=== PATIENT | male | born 1980 ===

== ENCOUNTER 2021-01-19 13:42 | Outpatient (REF) | payer OTHER, SELFPAY ==
--- NOTE | ~2021-01-19 | US_ITS ---
EXAMINATION: US THYROID CLINICAL INFORMATION: Mass, lump left neck going up to patient's jaw. COMPARISON: None TECHNIQUE: Linear transducer grayscale and color Doppler examination with attention to the region of the thyroid. FINDINGS: SIZE: Measurements of the thyroid lobes and nodules are given in sagittal, anteroposterior and transverse dimensions respectively. Right Thyroid Lobe: 5.1 x 1.5 x 1.8 cm, volume 7.2 mL. Parenchyma: The gland echotexture is homogeneous. Thyroid vascularity is increased. Left Thyroid Lobe: 7.7 x 4.8 x 5.6 cm, volume 108.2 mL. Parenchyma: The gland echotexture is heterogeneous. Thyroid vascularity is increased. Isthmus: 0.3 cm in maximum AP dimension. Estimated total number of nodules greater than or equal to 1 cm: 2. Manager Enrollment nodules are described as follows: 1. Location: Right superior. Size: 0.98 x 0.90 x 1.04 cm, volume 0.48 mL. Nodule characteristics: Composition: Solid (2). Echogenicity: Isoechoic (1). Shape: Not taller than wide (0). Margins: Lobulated (2). Echogenic Foci: None (0). ACR TI-RADS total points: 5 ACR TI-RADS category: 4 2. Location: Right superior/mid. Size: 0.91 x 0.96 x 0.81 cm, volume 0.37 mL. Nodule characteristics: Composition: Solid (2). Echogenicity: Isoechoic (1). Shape: Taller than wide (3). Margins: Lobulated (2). Echogenic Foci: None (0). ACR TI-RADS total points: 8 ACR TI-RADS category: 5 3. Location: Left. Size: 7.04 x 5.73 x 5.87 cm, volume 124 mL. Nodule characteristics: Composition: Solid (2). Echogenicity: Cannot be determined (1). Shape: Not taller than wide (0). Margins: Lobulated (2). Echogenic Foci: Punctate echogenic foci (3). ACR TI-RADS total points: 8 ACR TI-RADS category: 5 NODES: No lymphadenopathy is seen in the tissue surrounding the thyroid gland. US/US thyroid IMPRESSION: 1. Bilateral thyroid nodules are seen, as above. The 7.7 cm in maximal diameter left thyroid lobe nodule meets ACR biopsy criteria and is amenable to ultrasound-guided biopsy, if clinically indicated and not already performed. 2. There is an asymmetric goiter. 3. There is heterogeneous thyroid echotexture or increased vascularity, which can be associated with thyroiditis. ACR TI-RADS RECOMMENDATION REFERENCE: Ultrasound-guided fine-needle aspiration, followup ultrasound, no further follow up. * TR1 (0 point) and TR 2 (2 points): No FNA or follow up * TR3 (3 points): FNA if more than or equal to 2.5 cm in maximum dimension, followup ultrasound in 1, 3 and 5 years if 1.5 to 2.4 cm in maximum dimension. * TR4 (4-6 points): FNA if more than or equal to 1.5 cm in maximum dimension, followup ultrasound in 1, 2, 3 and 5 years if 1 to 1.4 cm in maximum dimension. * TR5 (more than or equal to 7 points): FNA if more than or equal to 1 cm in maximum dimension, followup ultrasound every year for 5 years if 0.5 to 0.9 cm in maximum dimension. * TR3, TR4 or TR5 nodules that are below the size threshold for follow up receive no follow up.
== END 2021-01-19 13:43 | disposition home or self-care (01) ==
LOC: HO.HMGCX 13:42
PROVIDERS: Visit Provider Registered Nurse
DX: R06.02 Shortness of breath (principal); R22.1 Localized swelling, mass and lump, neck
CPT/HCPCS: 76536

== ENCOUNTER 2021-04-13 11:10 | Outpatient (REF) | payer OTHER, SELFPAY ==
--- NOTE | ~2021-04-13 | XR_ITS ---
EXAMINATION: XR KNEE, RIGHT CLINICAL INFORMATION: Pain COMPARISON: None TECHNIQUE: Four views of the right knee. FINDINGS: No acute fracture or dislocation. Small tricompartmental marginal osteophytes present. 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 There is prominence of the distal patellar tendon which could represent ongoing patellar tendinosis. No suspicious osseous lesions. No significant joint effusion. XR/XR knee RT 4V IMPRESSION: No acute findings. Small tricompartmental marginal osteophytes. Evidence suggestive of prior Hodgkin Schlatter disease. Query ongoing distal patellar tendinosis.
== END 2021-04-13 11:11 | disposition home or self-care (01) ==
LOC: HO.XRAY 11:10
PROVIDERS: PCP Registered Nurse; Visit Provider Registered Nurse
DX: G89.29 Other chronic pain (principal); M25.561 Pain in right knee
CPT/HCPCS: 73564

== ENCOUNTER 2021-05-19 08:57 | Outpatient (REF) | payer OTHER, SELFPAY ==
--- NOTE | ~2021-05-19 | US_ITS ---
EXAMINATION: ULTRASOUND-GUIDED LEFT THYROID NODULE BIOPSY. CLINICAL INFORMATION: Large left thyroid nodule. COMPARISON: Ultrasound thyroid 01/16/2021. TECHNIQUE: Following explaining ultrasound-guided left thyroid nodule fine needle biopsy procedure, benefits and risk, a written consent was obtained. Patient was placed supine on ultrasound stretcher and preliminary ultrasound imaging was obtained. An optimal site was selected along the left para midline neck and marked on the skin with a marker. The marked site was cleaned and draped in usual sterile manner. 1% lidocaine was injected puncture site. A 25-gauge needle attached to a syringe was advanced into the left mixed heterogeneous large left-sided nodule and a 4 pass fine-needle biopsy aspiration was performed through the cystic and solid components. Postprocedure there is no bleeding. Patient on procedure extremely well. Simple dressing applied postprocedure at the puncture site. FINDINGS: On preliminary ultrasound imaging there is a large cystic and solid mass in the left gland Y almost entire gland. 4 pass fine-needle biopsy aspiration was performed with 25-gauge needle. US/US guided fine needle asp IMPRESSION: Successful ultrasound-guided fine-needle biopsy aspiration of a large left thyroid nodule performed.
[2021-05-19] MEDS: Lidocaine HCl 1 % MPF 5 ML VIAL 4 ML SUBCUT (10:03)
== END 2021-05-19 08:58 | disposition home or self-care (01) ==
LOC: HO.US 08:57
PROVIDERS: PCP Registered Nurse; Visit Provider Nurse Practitioner
DX: E06.9 Thyroiditis, unspecified (principal)
CPT/HCPCS: 10005; 88112; 88172; 88173

== ENCOUNTER 2021-06-17 14:25 | Outpatient (REF) | payer OTHER, SELFPAY ==
[2021-06-17 16:05] LABS: Alanine Aminotransferase 40 U/L (0-40); Albumin Level 4.4 g/dL (3.5-5.0); Alkaline Phosphatase 66 U/L (39-117); Anion Gap 10 (12-20); Aspartate Amino Transferase 18 U/L (5-37); Bilirubin Total 0.6 mg/dL (0.0-1.0); Blood Urea Nitrogen 18 mg/dL (9-16); Calcium 9.7 mg/dL (8.4-10.2); Carbon Dioxide 27 mmol/L (22-29); Chloride 108 mmol/L (96-108); Estimated Glomerular Filt Rate > 60; Glucose Random 125 mg/dL (60-115); Phosphorus 2.5 mg/dL (2.7-4.5); Potassium 4.1 mmol/L (3.3-5.1); Sodium 141 mmol/L (135-145); Total Protein 6.9 g/dL (6.5-8.0)
[2021-06-17 16:26] LABS: Free T4 (Free Thyroxine) 0.96 ng/dL (0.71-1.85); Thyroid Stimulating Hormone 1.38 uIU/mL (0.32-4.0)
[2021-06-18 16:17] LABS: Calcium (PTHI) 9.5 mg/dL (8.6-10.3); PTHI 44 pg/mL (14-64)
== END 2021-06-17 14:26 | disposition home or self-care (01) ==
LOC: HO.LAB 14:25
PROVIDERS: PCP Internal Medicine; Visit Provider Internal Medicine
DX: E04.2 Nontoxic multinodular goiter (principal); E55.9 Vitamin D deficiency, unspecified; D49.7 Neoplasm of unspecified behavior of endocrine glands and other parts of nervous system
CPT/HCPCS: 36415; 80053; 82306; 83970; 84100; 84439; 84443; 99202

== ENCOUNTER 2021-06-29 07:24 | Outpatient (REF) | payer OTHER, SELFPAY ==
--- NOTE | ~2021-06-29 | CT_ITS ---
EXAMINATION: CT SOFT TISSUE NECK WITHOUT CONTRAST CLINICAL INFORMATION: Thyroid cancer. COMPARISON: Previous thyroid ultrasound 01/19/2021. TECHNIQUE: Helical imaging was performed in the axial plane with generation of coronal and sagittal reformatted images. This CT examination was performed using dose optimization techniques as appropriate, variously including the following: *Automated exposure control *Adjustment of mA and/or kV according to patient size (this includes techniques or standardized protocols for targeted exams where dose is matched to indication/reason for exam; i.e. extremities or head) *Use of iterative reconstruction technique DLP: 455 mGy-cm FINDINGS: There is a large, partially cystic/partially solid left thyroid nodule. This measures 5.2 x 5.6 x 7.2 cm in transverse, AP and longitudinal dimensions. This occupies the entire left lobe. This displaces the trachea to the right. This extends inferiorly to the level of the top of the manubrium/sternomanubrial joints. There are small right thyroid nodules, largest measuring 8 x 10 mm in AP and transverse dimensions. There is diffuse shotty cervical lymphadenopathy seen bilaterally. Largest lymph nodes are upper normal in size in the bilateral jugulodigastric region measuring 1 cm in short axis No enlarged lymph nodes are seen. The visualized intracranial structures are normal. The visualized orbits are normal. The visualized paranasal sinuses, mastoid air cells and middle ears are clear. The salivary glands are normal. There is prominent soft tissue seen in the oropharynx probably representing prominent adenoidal soft tissue. No asymmetry to suggest a focal mass is seen. There is asymmetric appearance of the piriform sinuses with the left significantly larger than the right. Possible left vocal cord paralysis cannot be excluded and clinical correlation is recommended. There is no mediastinal lymphadenopathy. The visualized lung apices are clear. Vascular structures are not well assessed without contrast. There is curvature of the cervical spine to the right and degenerative changes. CT/CT soft tissue neck wo con IMPRESSION: Large, partially solid/partially cystic left thyroid nodule. This displaces the trachea to the right. This extends inferior to the manubrium. Small right thyroid nodules. Diffuse cervical lymphadenopathy. Largest lymph nodes are upper normal size. Asymmetric appearance of the piriform sinuses questionable for possible left vocal cord paralysis. Clinical correlation recommended.
== END 2021-06-29 07:25 | disposition home or self-care (01) ==
LOC: HO.CT 07:24
PROVIDERS: PCP Nurse Practitioner; Visit Provider Internal Medicine
DX: D49.7 Neoplasm of unspecified behavior of endocrine glands and other parts of nervous system (principal)
CPT/HCPCS: 70490

== ENCOUNTER → 2021-09-21 08:44 | Outpatient (BNVA) | payer OTHER, SELFPAY | PROVIDERS: PCP Nurse Practitioner; Visit Provider Internal Medicine | DX: Z13.89 Encounter for screening for other disorder (principal) ==

== ENCOUNTER 2021-10-08 09:39 | Outpatient (REF) | payer OTHER, SELFPAY ==
[2021-10-08 11:40] LABS: Alanine Aminotransferase 35 U/L (0-40); Albumin Level 4.5 g/dL (3.5-5.0); Alkaline Phosphatase 72 U/L (39-117); Anion Gap 13 (12-20); Aspartate Amino Transferase 18 U/L (5-37); Bilirubin Total 0.8 mg/dL (0.0-1.0); Blood Urea Nitrogen 13 mg/dL (9-16); Calcium 9.7 mg/dL (8.4-10.2); Carbon Dioxide 24 mmol/L (22-29); Chloride 105 mmol/L (96-108); Estimated Glomerular Filt Rate > 60; Glucose Random 112 mg/dL (60-115); Phosphorus 2.7 mg/dL (2.7-4.5); Potassium 4.3 mmol/L (3.3-5.1); Sodium 138 mmol/L (135-145); Total Protein 6.9 g/dL (6.5-8.0)
[2021-10-08 11:52] LABS: Free T4 (Free Thyroxine) 1.02 ng/dL (0.71-1.85); Vitamin D 25-OH Total 30.1 ng/mL (>30)
[2021-10-09 15:46] LABS: Calcium (PTHI) 9.5 mg/dL (8.6-10.3); PTHI 53 pg/mL (16-77)
== END 2021-10-08 09:40 | disposition home or self-care (01) ==
LOC: HO.LAB 09:39
PROVIDERS: PCP Nurse Practitioner; Visit Provider Internal Medicine
DX: E04.2 Nontoxic multinodular goiter (principal); E55.9 Vitamin D deficiency, unspecified
CPT/HCPCS: 36415; 80053; 82306; 83970; 84100; 84439; 84443

== ENCOUNTER 2021-10-28 14:16 | Outpatient (REF) | payer OTHER, SELFPAY ==
--- NOTE | ~2021-10-28 | US_ITS ---
EXAMINATION: US RETROPERITONEAL COMPLETE (RENAL) CLINICAL INFORMATION: Bladder/pelvic pain x1 month. History of stones. Question nephrolithiasis. COMPARISON: CT abdomen and pelvis 05/19/2013. TECHNIQUE: Real-time imaging of the kidneys and bladder. FINDINGS: RIGHT KIDNEY: 11.5 x 4.3 x 6.1 cm (SAG x AP x TRV). The kidney is normal in size, contour, and echogenicity. Renal cortical thickness is normal. No calculi or focal parenchymal lesions. No hydronephrosis. LEFT KIDNEY: 11.3 x 5.7 x 5.7 cm (SAG x AP x TRV). The kidney is normal in size, contour, and echogenicity. Renal cortical thickness is normal. No calculi or focal parenchymal lesions. No hydronephrosis. BLADDER: Well distended and normal. Bilateral ureteral jets are demonstrated. Prevoid bladder volume is 262 mL. There is no postvoid residual. ADDITIONAL FINDINGS: The prostate gland measures 4.3 x 3.8 by or centimeters for a volume of 34 mL. US/US retroperitoneal comp IMPRESSION: No nephrolithiasis or hydronephrosis.
== END 2021-10-28 14:17 | disposition home or self-care (01) ==
LOC: HO.HMGCX 14:16
PROVIDERS: Visit Provider Registered Nurse Community Health
DX: R10.2 Pelvic and perineal pain (principal)
CPT/HCPCS: 76770

== ENCOUNTER 2021-12-14 14:14 | Outpatient (REF) | payer OTHER, SELFPAY ==
[2021-12-14 15:35] LABS: Albumin Level 4.9 g/dL (3.5-5.0)
[2021-12-14 16:05] LABS: Free T4 (Free Thyroxine) 1.42 ng/dL (0.71-1.85)
[2021-12-16 12:56] LABS: Calcium (PTHI) 9.6 mg/dL (8.6-10.3); PTHI 64 pg/mL (16-77)
== END 2021-12-14 14:15 | disposition home or self-care (01) ==
LOC: HO.LAB 14:14
PROVIDERS: PCP Nurse Practitioner; Visit Provider Internal Medicine
DX: E04.2 Nontoxic multinodular goiter (principal); E55.9 Vitamin D deficiency, unspecified
CPT/HCPCS: 36415; 82040; 83970; 84439

== ENCOUNTER 2021-12-28 14:45 | Outpatient (REF) | payer OTHER, SELFPAY ==
--- NOTE | ~2021-12-28 | MM_ITS ---
EXAMINATION: MM DIAGNOSTIC DIGITAL BREAST TOMOSYNTHESIS, BILATERAL US DIAGNOSTIC ULTRASOUND BREAST, LEFT CLINICAL INFORMATION: Male age 41 with intermittent left axillary and chest wall tenderness. History thyroid cancer status post resection. No prior breast imaging. COMPARISON: None (current study represents initial baseline exam). Comparison is made with CT soft tissue neck 06/29/2021. TECHNIQUE: Digital breast tomosynthesis is performed in both the craniocaudal and mediolateral oblique views along with computer-aided detection (CAD). Synthesized 2D images are generated from the tomosynthesis. Ultrasound is targeted to the left axilla are, posterior upper outer left breast, left lateral chest wall. Patient is able to point areas of clinical concern at time of imaging. Grayscale imaging and color Doppler are performed without and with harmonics. FINDINGS: The breasts are almost entirely fatty (ACR BI-RADS breast composition Category a). Background stromal markings are normal. There is no mass or architectural abnormality or abnormal calcifications. The skin contours are smooth. The bilateral axilla are unremarkable. There is incidental low left axillary node on MLO view under 1 cm with normal fatty hilus. No skin thickening or coarsening of the stromal markings. Ultrasound demonstrates no axillary adenopathy. There is no skin thickening or edema tracking in soft tissue planes. No cystic or solid mass. Results are discussed with the patient at time of visit. MM/MM tomosynthesis diagnostic BI IMPRESSION: No mammographic evidence of malignancy or inflammatory changes. Unremarkable left ultrasound. No adenopathy or inflammatory changes. ASSESSMENT: BI-RADS 1: Negative RECOMMENDATION: Patient should be managed based on the clinical impression.
== END 2021-12-28 14:46 | disposition home or self-care (01) ==
LOC: HO.MAMMO 14:45
PROVIDERS: PCP Nurse Practitioner; Visit Provider Nurse Practitioner
DX: M79.89 Other specified soft tissue disorders (principal); N64.4 Mastodynia
CPT/HCPCS: 76642; 77062; 77066

== ENCOUNTER 2022-01-04 08:56 | Outpatient (REF) | payer OTHER, SELFPAY ==
[2022-01-04 11:15] LABS: Phosphorus 2.2 mg/dL (2.7-4.5)
[2022-01-04 11:37] LABS: Free T4 (Free Thyroxine) 1.21 ng/dL (0.71-1.85); Thyroid Stimulating Hormone 1.67 uIU/mL (0.32-4.0); Vitamin D 25-OH Total 28.5 ng/mL (>30)
[2022-01-05 12:48] LABS: Calcium (PTHI) 9.4 mg/dL (8.6-10.3); PTHI 55 pg/mL (16-77)
[2022-01-05 22:55] LABS: Thyroglobulin <0.1 ng/mL; Thyroglobulin Antibodies <1 IU/mL (< or = 1)
[2022-01-08 06:06] LABS: Thyroglobulin Antibody <1 IU/mL (<=1); Thyroglobulin Level <0.1 ng/mL
== END 2022-01-04 08:57 | disposition home or self-care (01) ==
LOC: HO.LAB 08:56
PROVIDERS: PCP Nurse Practitioner; Visit Provider Internal Medicine
DX: C73 Malignant neoplasm of thyroid gland (principal); E55.9 Vitamin D deficiency, unspecified
CPT/HCPCS: 36415; 82306; 83970; 84100; 84432; 84439; 84443; 86800; 99212

== ENCOUNTER 2022-01-18 10:05 | Outpatient (REF) | payer OTHER, SELFPAY ==
[2022-01-18 11:07] LABS: Albumin Level 4.7 g/dL (3.5-5.0)
[2022-01-18 11:36] LABS: Thyroid Stimulating Hormone 4.14 uIU/mL (0.32-4.0)
[2022-01-22 04:42] LABS: Thyroglobulin Antibody <1 IU/mL (<=1); Thyroglobulin Level <0.1 ng/mL
== END 2022-01-18 10:06 | disposition home or self-care (01) ==
LOC: HO.LAB 10:05
PROVIDERS: PCP Nurse Practitioner; Visit Provider Internal Medicine
DX: C73 Malignant neoplasm of thyroid gland (principal); E55.9 Vitamin D deficiency, unspecified
CPT/HCPCS: 36415; 82040; 84432; 84443; 86800

== ENCOUNTER 2022-02-04 14:58 | Outpatient (REF) | payer OTHER, SELFPAY ==
[2022-02-04 16:39] LABS: Free T4 (Free Thyroxine) < 0.40 ng/dL (0.71-1.85); Thyroid Stimulating Hormone 41.58 uIU/mL (0.32-4.0)
[2022-02-08 19:41] LABS: Thyroglobulin 0.9 ng/mL; Thyroglobulin Antibodies <1 IU/mL (< or = 1)
== END 2022-02-04 14:59 | disposition home or self-care (01) ==
LOC: HO.LAB 14:58
PROVIDERS: PCP Nurse Practitioner; Visit Provider Internal Medicine
DX: C73 Malignant neoplasm of thyroid gland (principal)
CPT/HCPCS: 36415; 84432; 84439; 84443; 86800

== ENCOUNTER 2022-02-08 12:23 | Outpatient (REF) | payer OTHER, SELFPAY ==
[2022-02-08 14:15] LABS: Free T4 (Free Thyroxine) < 0.40 ng/dL (0.71-1.85); Thyroid Stimulating Hormone 37.94 uIU/mL (0.32-4.0)
[2022-02-10 02:11] LABS: Thyroglobulin 1.1 ng/mL; Thyroglobulin Antibodies <1 IU/mL (< or = 1)
== END 2022-02-08 12:24 | disposition home or self-care (01) ==
LOC: HO.LAB 12:23
PROVIDERS: PCP Nurse Practitioner; Visit Provider Internal Medicine
DX: C73 Malignant neoplasm of thyroid gland (principal)
CPT/HCPCS: 36415; 84432; 84439; 84443; 86800

== ENCOUNTER 2022-03-23 14:27 | Outpatient (REF) | payer OTHER, SELFPAY ==
--- NOTE | ~2022-03-23 | CT_ITS ---
EXAMINATION: CT ABDOMEN AND PELVIS WITHOUT CONTRAST CLINICAL INFORMATION: Right flank pain. History of stones. COMPARISON: Previous ultrasound October [address] of the abdomen and pelvis April 2013 TECHNIQUE: Multidetector volumetric imaging was performed from the superior aspect of the liver through the pubic symphysis. Sagittal and coronal reformatted images were obtained on the technologist's workstation. This CT examination was performed using dose optimization techniques as appropriate, variously including the following: *Automated exposure control *Adjustment of mA and/or kV according to patient size (this includes techniques or standardized protocols for targeted exams where dose is matched to indication/reason for exam; i.e. extremities or head) *Use of iterative reconstruction technique DLP: 450 mGy-cm FINDINGS: LUNG BASES: The visualized lung bases are unremarkable. LIVER, GALLBLADDER, AND BILIARY TREE: The liver is normal in size, shape, and attenuation. No focal hepatic lesion or biliary ductal dilatation is present. The gallbladder is unremarkable with no evidence of radiopaque gallstones, gallbladder wall thickening, or obvious pericholecystic inflammatory changes. PANCREAS: Unremarkable. SPLEEN: Unremarkable. ADRENAL GLANDS: Unremarkable. KIDNEYS AND URETERS: The kidneys are normal in size, shape, and attenuation. No hydronephrosis, hydroureter, or calculi seen. No perinephric stranding. BLADDER: Unremarkable. GASTROINTESTINAL TRACT: The small and large bowel are unremarkable. The appendix is unremarkable. ABDOMINAL WALL: No significant hernia is appreciated. LYMPH NODES: Normal. VASCULAR: Unremarkable. PELVIC VISCERA: Unremarkable. OSSEOUS STRUCTURES: Unremarkable. CT/CT abdomen pelvis wo IV con IMPRESSION: Unremarkable exam. Fleischner guidelines were followed.
== END 2022-03-23 14:28 | disposition home or self-care (01) ==
LOC: HO.CT 14:27
PROVIDERS: PCP Nurse Practitioner; Visit Provider Registered Nurse
DX: R10.9 Unspecified abdominal pain (principal)
CPT/HCPCS: 74176

== ENCOUNTER 2022-04-05 13:12 | Outpatient (REF) | payer OTHER, SELFPAY ==
[2022-04-05 15:07] LABS: Free T4 (Free Thyroxine) 1.41 ng/dL (0.71-1.85); Thyroid Stimulating Hormone 1.44 uIU/mL (0.32-4.0)
== END 2022-04-05 13:13 | disposition home or self-care (01) ==
LOC: HO.LAB 13:12
PROVIDERS: PCP Registered Nurse; Visit Provider Internal Medicine
DX: C73 Malignant neoplasm of thyroid gland (principal)
CPT/HCPCS: 36415; 84439; 84443

== ENCOUNTER → 2022-07-21 10:02 | Outpatient (BNVA) | payer OTHER, SELFPAY | PROVIDERS: PCP Registered Nurse; Visit Provider Nurse Practitioner Family | DX: R39.89 Other symptoms and signs involving the genitourinary system (principal) | CPT/HCPCS: 51798; 99202 ==

== ENCOUNTER 2022-08-02 14:26 | Outpatient (REF) | payer OTHER, SELFPAY ==
--- NOTE | ~2022-08-02 | US_ITS ---
EXAMINATION: US SOFT TISSUE HEAD/NECK CLINICAL INFORMATION: Malignant neoplasm of thyroid gland. COMPARISON: CT soft tissue neck without contrast 06/29/2021. US-guided thyroid biopsy 05/19/2021. Ultrasound thyroid 01/19/2021. TECHNIQUE: Ultrasound of the neck soft tissues is performed with high frequency morel-scale imaging and color Doppler. FINDINGS: RIGHT NECK SOFT TISSUES: Right neck soft tissues and nodes are as follows: Level 5A: 1.1 x 0.4 x 0.6 cm. Normal jose architecture. LEFT NECK SOFT TISSUES: Left neck soft tissues and nodes are as follows: Level 2: 0.6 x 0.5 x 0.6 cm. Normal jose architecture. Level 3: 1.1 x 0.3 x 0.6 cm. Normal jose architecture. Level 3: 1.1 x 0.4 x 0.6 cm. Normal jose architecture. Level 5A: 1.4 x 0.5 x 0.9 cm. Normal jose architecture. Level 5B: 1.4 x 0.5 x 0.7 cm. Normal jose architecture. OTHER: Prior thyroidectomy. No additional findings. US/US soft tiss head and/or neck IMPRESSION: Shotty, nonpathologically enlarged bilateral cervical lymph nodes are seen, as detailed. These are nonspecific and should be managed on a clinical basis.
== END 2022-08-02 14:27 | disposition home or self-care (01) ==
LOC: HO.US 14:26
PROVIDERS: PCP Registered Nurse; Visit Provider Internal Medicine
DX: C73 Malignant neoplasm of thyroid gland (principal)
CPT/HCPCS: 76536

== ENCOUNTER 2022-08-05 13:04 | Outpatient (REF) | payer OTHER, SELFPAY ==
--- NOTE | ~2022-08-05 | US_ITS ---
EXAMINATION: US RETROPERITONEAL COMPLETE (RENAL) CLINICAL INFORMATION: Other symptoms and signs involving the genitourinary system. COMPARISON: CT abdomen and pelvis 03/23/2022. Ultrasound kidneys and bladder 10/28/2021. TECHNIQUE: Real-time imaging of the kidneys and bladder. FINDINGS: RIGHT KIDNEY: 11.4 x 4.8 x 4.6 cm (SAG x AP x TRV). The kidney is normal in size, contour, and echogenicity. Renal cortical thickness is normal. Mild pelvic fullness without overt hydronephrosis. No renal calculi. LEFT KIDNEY: 10.6 x 5.0 x 5.0 cm (SAG x AP x TRV). The kidney is normal in size, contour, and echogenicity. Renal cortical thickness is normal. Mild pelvic fullness without overt hydronephrosis. Suspected lower pole caliectasis. No renal calculi. BLADDER: Well distended and normal. Bilateral ureteral jets are demonstrated. Prevoid bladder volume is 814.3 mL. Postvoid bladder volume is 120 mL. Prostate volume 27.6 mL. US/US retroperitoneal comp IMPRESSION: 1. Mild pelvic fullness of both kidneys without overt hydronephrosis. No renal calculi are appreciated. Bilateral ureteral jets are visualized. 2. Prominent post void bladder residual of 120 mL.
== END 2022-08-05 13:05 | disposition home or self-care (01) ==
LOC: HO.US 13:04
PROVIDERS: PCP Registered Nurse; Visit Provider Nurse Practitioner Family
DX: R39.89 Other symptoms and signs involving the genitourinary system (principal)
CPT/HCPCS: 76770

== ENCOUNTER 2022-08-30 10:04 | Outpatient (REF) | payer OTHER, SELFPAY ==
[2022-08-30 12:28] LABS: Free T4 (Free Thyroxine) 0.92 ng/dL (0.71-1.85); Thyroid Stimulating Hormone 2.38 uIU/mL (0.32-4.0)
[2022-09-03 06:28] LABS: Thyroglobulin Antibody <1 IU/mL (<=1); Thyroglobulin Level <0.1 ng/mL
== END 2022-08-30 10:05 | disposition home or self-care (01) ==
LOC: HO.LAB 10:04
PROVIDERS: Visit Provider Internal Medicine
DX: C73 Malignant neoplasm of thyroid gland (principal)
CPT/HCPCS: 36415; 84432; 84439; 84443; 86800

== ENCOUNTER → 2022-09-01 11:05 | Outpatient (BNVA) | payer OTHER, SELFPAY | PROVIDERS: PCP Registered Nurse; Visit Provider Nurse Practitioner Family | DX: C73 Malignant neoplasm of thyroid gland (principal); E55.9 Vitamin D deficiency, unspecified | CPT/HCPCS: 99212 ==

== ENCOUNTER 2022-11-11 15:58 | Outpatient (REF) | payer OTHER, SELFPAY ==
[2022-11-11 18:28] LABS: Free T4 (Free Thyroxine) 1.45 ng/dL (0.71-1.85); Thyroid Stimulating Hormone 0.21 uIU/mL (0.32-4.0)
[2022-11-17 06:37] LABS: Thyroglobulin Antibody <1 IU/mL (<=1); Thyroglobulin Level <0.1 ng/mL
== END 2022-11-11 15:59 | disposition home or self-care (01) ==
LOC: HO.LAB 15:58
PROVIDERS: PCP Registered Nurse; Visit Provider Internal Medicine
DX: C73 Malignant neoplasm of thyroid gland (principal)
CPT/HCPCS: 36415; 84432; 84439; 84443; 86800

== ENCOUNTER 2022-12-13 12:38 | Outpatient (REF) | payer OTHER, SELFPAY ==
[2022-12-13 15:04] LABS: Free T4 (Free Thyroxine) 1.42 ng/dL (0.71-1.85); Thyroid Stimulating Hormone 0.16 uIU/mL (0.32-4.0)
[2022-12-17 02:18] LABS: Thyroglobulin Antibody <1 IU/mL (<=1)
[2022-12-17 07:54] LABS: Thyroglobulin Level <0.1 ng/mL
== END 2022-12-13 12:39 | disposition home or self-care (01) ==
LOC: HO.LAB 12:38
PROVIDERS: PCP Registered Nurse; Visit Provider Internal Medicine
DX: C73 Malignant neoplasm of thyroid gland (principal)
CPT/HCPCS: 84432; 84439; 84443; 86800

== ENCOUNTER 2022-12-15 07:53 | Outpatient (AMB) | payer OTHER, SELFPAY ==
--- NOTE | 2022-12-15 07:54 | A.OFFVIS_ITS ---
Intake Intake Visit Reasons: F/U Thyroid Cancer Intake Note: pt is here for thyroid ca Secretary Office Clerk Required: No Allergies No Known Allergies Allergy (Verified 12/15/22 08:01) Medication List - Last Reconciled 12/15/22 by Lalita Neves, cholecalciferol (vitamin D3) 50 mcg PO DAILY 30 days levothyroxine 150 mcg PO DAILY 30 days Do you need a note to return to daycare/school/sports/work: No HPI HPI Comments History of Present Illness Details 42 YO Male with no significant PMHx who is seen in F/U for thyroid cancer. He and his report that in the summer of 2020 he began to notice swelling in his neck. He then had an US of the thyroid completed 01/19/2021. This revealed multiple bilateral thyroid nodules, including a 7 cm hypoechoic nodule within the L lobe. He underwent FNA biopsy of this 7 cm L lobe nodule 05/19/2021 with cytology suspicious for follicular neoplasm, hurthle cell type (bethesda category IV). Affirma was suspicious, giving the risk of malignancy of 50%. I recommended a total thyroidectomy given that he had bilateral thyroid nodules. He refused, and instead opted for a L hemithyroidectomy and underwent this 08/26/2021. 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 Margins were negative and no lymph nodes were assessed. pT3a. He then underwent a completion thyroidectomy 11/06/2021. Official surgical path was benign, per his report, but no official report has yet been received. He then underwent I131 ablation 02/19/2022 via thyroid hormone withdrawal. He received 96.7 mCi of I131. This revealed only physiologic uptake. Labs 02/08/2022 TSH 37.94 with TG 1.1 and TGAB <1. He remains on levothyroxine 150 mcg PO daily. TSH is at goal. He denies any personal history of head or neck irradiation. He denies any family history of thyroid cancer. US Thyroid: 01/19/2021 Right Thyroid Lobe: 5.1 x 1.5 x 1.8 cm, volume 7.2 mL. Parenchyma: The gland echotexture is homogeneous. Thyroid vascularity is increased. Left Thyroid Lobe: 7.7 x 4.8 x 5.6 cm, volume 108.2 mL. Parenchyma: The gland echotexture is heterogeneous. Thyroid vascularity is increased. Isthmus: 0.3 cm in maximum AP dimension. Estimated total number of nodules greater than or equal to 1 cm: 2. Equipment Tester nodules are described as follows: 1. Location: Right superior. ?? ? Size: 0.98 x 0.90 x 1.04 cm, volume 0.48 mL. ?? ? Nodule characteristics: ?? ? Composition: Solid (2). ?? ? Echogenicity: Isoechoic (1). ?? ? Shape: Not taller than wide (0). ?? ? Margins: Lobulated (2). ?? ? Echogenic Foci: None (0). ?? ? ACR TI-RADS total points: 5 ?? ? ACR TI-RADS category: 4 2. Location: Right superior/mid. ?? ? Size: 0.91 x 0.96 x 0.81 cm, volume 0.37 mL. ?? ? Nodule characteristics: ?? ? Composition: Solid (2). ?? ? Echogenicity: Isoechoic (1). ?? ? Shape: Taller than wide (3). ?? ? Margins: Lobulated (2). ?? ? Echogenic Foci: None (0). ?? ? ACR TI-RADS total points: 8 ?? ? ACR TI-RADS category: 5 3. Location: Left. ?? ? Size: 7.04 x 5.73 x 5.87 cm, volume 124 mL. ?? ? Nodule characteristics: ?? ? Composition: Solid (2). ?? ? Echogenicity: Cannot be determined (1). ?? ? Shape: Not taller than wide (0). ?? ? Margins: Lobulated (2). ?? ? Echogenic Foci: Punctate echogenic foci (3). ?? ? ACR TI-RADS total points: 8 ?? ? ACR TI-RADS category: 5 NODES: No lymphadenopathy is seen in the tissue surrounding the thyroid gland. Labs: Laboratory Tests 08/30/22 12/13/22 10:33 13:06 TSH 2.38 0.16 L Free T4 0.92 1.42 PFSH Medical History Multinodular thyroid Thyroid cancer Thyroid neoplasm Vitamin D deficiency Surgical History History of surgery Hx of lithotripsy Hx of partial thyroidectomy Hx of total thyroidectomy Family History Father No known health problems Mother No known health problems Social History Alcohol intake: current Alcohol intake frequency: does not drink Patient Tobacco Use Status: Never used Tobacco Assessment & Plan Assessment & Plan (1) Thyroid cancer: Code(s): C73 - Malignant neoplasm of thyroid gland Plan: 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 Underwent completion thyroidectomy 11/06/2021. Official surgical path was benign per his report[facility]. We reviewed that he is considered low to intermediate risk for recurrence. We reviewed that I do recommend I131 ablation due to the more aggressive nature of hurthle cell carcinoma. He underwent I131 ablation with 96.7 mCi of I131 02/19/2022. Post-treatment WBS revealed only physiologic uptake. TG remains low, even stimulated. We reviewed that this is all very reassuring. TSH goal is 0.1-0.5 until 01/2024. TSH is at goal. Will continue with levothyroxine 150 mcg PO daily. He will be due for a repeat WBS in late January/early February 2023 as well as stimulated labs. He will F/U in 2 months time and we will schedule his WBS at that time. All of his questions were answered. He is in agreement with this plan of care. I spent 20 minutes in reviewing the record, seeing the patient and documenting in the medical record, including 5 minutes on the phone with the Patient. (2) Vitamin D deficiency: Code(s): E55.9 - Vitamin D deficiency, unspecified Plan: No changes. Telehealth Telehealth Location of provider rendering services: practice address Location of patient: address on file Patient Identification confirmed using: Name, : Yes Telehealth method: voice only Patient verbally consented to treatment: Yes Patient verbally consented to billing insurance company: Yes Patient informed of any privacy concerns related to visit: Yes Coding Level of Care Code Tele Est Pt Level 3 (49247) Diagnoses Thyroid cancer C73 Vitamin D deficiency E55.9
== END 2022-12-15 12:48 | disposition home or self-care (01) ==
LOC: HO.ENCR 07:53
PROVIDERS: PCP Registered Nurse; Visit Provider Internal Medicine
DX: C73 Malignant neoplasm of thyroid gland (principal); E55.9 Vitamin D deficiency, unspecified
CPT/HCPCS: 99213

== ENCOUNTER → 2022-12-15 07:53 | Outpatient (BNVA) | payer OTHER, SELFPAY | PROVIDERS: PCP Registered Nurse; Visit Provider Internal Medicine ==

== ENCOUNTER 2023-01-21 11:34 | Outpatient (AMB) | payer OTHER, SELFPAY ==
--- NOTE | 2023-01-21 11:31 | A.OFFVIS_ITS ---
Intake Intake Visit Reasons: 3m/PVR (no showed last appt) Intake Note: Patient is present for follow up lower abdominal pressure Urology Medications: none Blood Thinner: none PVR: 0ml's Dismantler Required: No Accompanied by: Spouse Allergies No Known Allergies Allergy (Verified 01/22/23 14:30) Medication List - Last Reconciled 01/22/23 by JORGE L Rincon cholecalciferol (vitamin D3) 50 mcg PO DAILY 30 days levothyroxine 150 mcg PO DAILY 30 days HPI HPI Comments History of Present Illness Details Alexandr is a pleasant 42 year old male patient of Dr. Martinez who is accompanied by his partner today. He presents to the office today for follow-up. Of note patient was seen approximately 4 months ago for ongoing lower abdominal pressure. Workup has included a renal/bladder ultrasound that noted bilateral kidneys with no overt hydronephrosis or renal calculi. The bladder was well distended and normal. Bilateral ureteral jets were demonstrated Prostate volume is approximately 30 mL. When asked patient reports symptoms to very with improvement. When attempting to obtain information patient is vague and patient reports symptoms vary day to day. He reports currently he feels symptoms are bothersome. He reports feeling lower abominal pressure and discomfort. He states pain is like a dull ache. Patients significant other also reports patient to have issue with sexual intercourse however patient declines and states he issue is in his lower abdominal area. In office urinalysis within normal limits. PVR 0ml's. Discussed if symptoms persist and/or worsen can further workup with in office cystoscopy for further assessment and evaluation. Discussed and educated on bladder triggers/irritants as patient reports drinking increased amounts of coffee. When asked patient reports to be drinking 2-4 glasses of water daily. Discussed obtaining PSA. He otherwise denies urinary urgency, urinary frequency, incontinence, nocturia, hematuria, dysuria, foul smelling urine, changes to urinary stream, flank pain, fever, and or chills. He is happy with his current voiding parameters. Discussed referral to Gastroenterology for further assessment evaluation as currently urology workup benign. However, patient declines at this time in discusses he will follow-up with PCP. [facility] Medical History Multinodular thyroid Thyroid cancer Thyroid neoplasm Vitamin D deficiency Surgical History History of surgery Hx of lithotripsy Hx of partial thyroidectomy Hx of total thyroidectomy Family History Father No known health problems Mother No known health problems Social History Alcohol intake: current Alcohol intake frequency: does not drink Patient Tobacco Use Status: Never used Tobacco Review of Systems Const All systems reviewed & are unremarkable except as noted in HPI and below Reports no additional complaints Eyes Reports no additional complaints ENT Reports no additional complaints Card Reports no additional complaints Resp Reports no additional complaints GI Reports no additional complaints Reports as per HPI and Denies other Musc Reports no additional complaints Neuro Reports no additional complaints Psych Reports no additional complaints Endo Details: patient reports having thyroid nodule/issues Juanito/Lymph Reports no additional complaints Aller/Immun Reports no additional complaints Physical Exam Const General: cooperative, healthy appearing, comfortable, no acute distress, well developed, alert and awake Orientation/consciousness: patient oriented x3 Limitations: no limitations HEENT Head: Yes normal to inspection, Yes normocephalic and Yes atraumatic Ears: hearing grossly normal bilaterally Eyes General: appearance normal, both eyes and all related structures Neck Neck: Yes normal visual inspection and Yes trachea midline Chest Chest palpation & inspection: normal inspection of the chest Resp Effort & Inspection: normal respiratory effort and able to speak in complete sentences Cardio Rate: regular rate GI Inspection: Yes normal to inspection General: Yes no CVA tenderness Back/Spine/Pelvis Back: no CVA tenderness Skin General skin exam: no rashes or lesions noted Neuro General: patient oriented x3 Extrem General: Yes normal to inspection and Yes full ROM Psych Appearance: grossly normal and well kempt Mental Status: mental status grossly normal Speech and movement: Normal speech and movement present and Clear speech present Affect: normal affect Attitude: cooperative Thought process: Normal thought process present Thought content: Normal thought content present Insight: Fair insight present (Psych) Judgement: Fair judgement present (Psych) Office Procedures Post Void Residual Post Residual Void Post Void Residual (PVR): 0 [id number]-[id number] Void Residual by ultrasound Results AMB Urinalysis, Automated UA Leukoctes 0 Jacoby/uL Last Edit by Madiha Melissa on 01/21/23 11:59 UA Nitrite Last Edit by Madiha Melissa on 01/21/23 11:59 UA Urobilinogen 0.2 mg/dL Last Edit by Madiha Melissa on 01/21/23 11:59 UA Protein 0 mg/dL Last Edit by Madiha Melissa on 01/21/23 11:59 UA pH 6.0 Last Edit by Madiha Melissa on 01/21/23 11:59 UA Blood 0 Clinton/uL Last Edit by Madiha Melissa on 01/21/23 11:59 UA Specific [place] 1.010 Last Edit by Grayycflaquita Melissa on 01/21/23 11:59 UA Ketone Negative Last Edit by Madiha Melissa on 01/21/23 11:59 UA Bilirubin 0 mg/dL Last Edit by Madiha Melissa on 01/21/23 11:59 UA Glucose 0 mg/dL Last Edit by Madiha Melissa on 01/21/23 11:59 Results Reviewed Results Reviewed: Laboratory Last Values Urine pH (Auto) 6.0 01/21/23 11:57 Specific [place] (Auto) 1.010 01/21/23 11:57 Urine Protein (Auto) 0 mg/dL 01/21/23 11:57 Glucose (UA)(Auto) 0 mg/dL 01/21/23 11:57 Urine Ketones (Auto) Negative 01/21/23 11:57 Urine Blood (Auto) 0 Clinton/uL 01/21/23 11:57 Urine Bilirubin (Auto) 0 mg/dL 01/21/23 11:57 Urine Urobilinogen (Auto) 0.2 mg/dL 01/21/23 11:57 Leukocyte Esterase (Auto) 0 Jacoby/uL 01/21/23 11:57 Assessment & Plan Assessment & Plan (1) Sensation of pressure in bladder area: Code(s): R39.89 - Other symptoms and signs involving the genitourinary system (2) Lower abdominal pain: Code(s): R10.30 - Lower abdominal pain, unspecified Plan In office urinalysis results reviewed with the patient today; as noted above. PVR 0 mL. Previous retroperitoneal ultrasound with no concerning or abnormal findings. Patient continues to report vague lower abdominal/bladder pressure Discussed in office cystoscopy for further assessment evaluation; however patient declines. Will obtain PSA for further assessment evaluation. Discussed bladder triggers/irritants. Discussed importance of drinking plenty of water daily. Discussed gastroenterology referral for further assessment evaluation patient will discuss with GP. Follow-up in 1-2 weeks with lab to be completed prior; or sooner with any issues, concerns, and or questions. Orders: Orders Prostate Specific Antigen 01/21/23 N40.0 - Benign prostatic hyperplasia without lower urinary tract symptoms, Z80.42 - Family history of malignant neoplasm of prostate AMB Urinalysis Automated 01/21/23 Z13.9 - Encounter for screening, unspecified AMB Post Void Residual by ultrasound 01/21/23 R39.89 - Other symptoms and signs involving the genitourinary system Patient Instructions: The patient had an opportunity to ask questions regarding the treatment plan. All questions were answered. Physical exam, labs, and imaging were discussed and reviewed in detail. As well as risks, benefits, and discussion of treatment choices. No major barriers to understanding were identified. The patient expressed understanding and agreement with the above treatment plan. The patient was made aware they should contact our office by phone for worsening of their current condition, the appearance of new symptoms, or with any questions or concerns. Compliance is encouraged with any medications and follow up testing that is ordered. It is a privilege to be allowed the opportunity to participate in? your urological care.? Again, if you have any questions or concerns If you have any questions or concerns please do not hesitate to contact me. The office is [phone]. This note is constructed using voice recognition software. While every effort has been made to ensure accuracy policy change clerk errors may have been included. Yours sincerely, JORGE L Rincon Coding Level of Care Code Est Pt Level 3 (72495) Diagnoses Sensation of pressure in bladder area R39.89 Lower abdominal pain R10.30 CPT Codes Post Residual Void - PVR CPT Code: 29818-Cwkf Void Residual by ultrasound ([id number])
== END 2023-01-21 12:23 | disposition home or self-care (01) ==
PROVIDERS: PCP Registered Nurse; Visit Provider Nurse Practitioner Family
DX: Z13.9 Encounter for screening, unspecified (principal)
CPT/HCPCS: 99213

== ENCOUNTER → 2023-01-21 11:34 | Outpatient (BNVA) | payer OTHER, SELFPAY | PROVIDERS: PCP Registered Nurse; Visit Provider Nurse Practitioner Family | DX: R39.89 Other symptoms and signs involving the genitourinary system (principal); R10.30 Lower abdominal pain, unspecified | CPT/HCPCS: 81003; 99212 ==

== ENCOUNTER 2023-01-21 12:26 | Outpatient (REF) | payer OTHER, SELFPAY | END 2023-01-21 12:27 | disposition home or self-care (01) | LOC: HO.10HDL 12:26 | PROVIDERS: Visit Provider Nurse Practitioner Family | DX: N40.0 Benign prostatic hyperplasia without lower urinary tract symptoms (principal); R10.9 Unspecified abdominal pain; R39.89 Other symptoms and signs involving the genitourinary system; R10.30 Lower abdominal pain, unspecified; Z80.42 Family history of malignant neoplasm of prostate; Z79.899 Other long term (current) drug therapy | CPT/HCPCS: 36415; 51798; 84153 ==

== ENCOUNTER 2023-02-01 14:54 | Outpatient (AMB) | payer OTHER, SELFPAY ==
--- NOTE | 2023-02-01 14:54 | MHC.OFFVIS ---
Intake Intake Visit Reasons: 2w/PSA Intake Note: Patient presents for follow up PSA labs (0.50) Urology Medications: none Blood Thinner: none Mini Shifter Required: No Allergies No Known Allergies Allergy (Verified 02/01/23 16:11) Medication List - Last Reconciled 02/01/23 by JORGE L Rincon cholecalciferol (vitamin D3) 50 mcg PO DAILY 30 days levothyroxine 150 mcg PO DAILY 30 days HPI HPI Comments History of Present Illness Details Alexandr is a pleasant 42 year old male patient of Dr. Martinez. He is being followed up on today via telehealth for review of his PSA as well as follow-up of his reports of bladder pressure. In discussion with the patient today reports to be doing and feeling well. Recent PSA 01/19--0.5. Reviewed with the patient today. When asked he does report improvement in bladder pressure he had been experiencing. He reports feeling increased amounts of water consumption to be helping his bladder pressure. Workup has included a renal/bladder ultrasound that noted bilateral kidneys with no overt hydronephrosis or renal calculi. The bladder was well distended and normal. Bilateral ureteral jets were demonstrated Prostate volume is approximately 30 mL. Discussed if symptoms persist and/or worsen can further workup with in office cystoscopy for further assessment and evaluation. Discussed and educated on bladder triggers/irritants as patient reports drinking increased amounts of coffee. When asked patient reports to be drinking 2-4 glasses of water daily however has been increasing to 6 glasses a day and finds this to be improving his bladder pressure. He otherwise denies urinary urgency, urinary frequency, incontinence, nocturia, hematuria, dysuria, foul smelling urine, changes to urinary stream, flank pain, fever, and or chills. He is happy with his current voiding parameters. [facility] Medical History Multinodular thyroid Thyroid cancer Thyroid neoplasm Vitamin D deficiency Surgical History History of surgery Hx of lithotripsy Hx of partial thyroidectomy Hx of total thyroidectomy Family History Father No known health problems Mother No known health problems Social History Alcohol intake: current Alcohol intake frequency: does not drink Patient Tobacco Use Status: Never used Tobacco Review of Systems Const All systems reviewed & are unremarkable except as noted in HPI and below Reports no additional complaints Eyes Reports no additional complaints ENT Reports no additional complaints Card Reports no additional complaints Resp Reports no additional complaints GI Reports no additional complaints Reports as per HPI and Denies other Musc Reports no additional complaints Neuro Reports no additional complaints Psych Reports no additional complaints Endo Details: patient reports having thyroid nodule/issues Juanito/Lymph Reports no additional complaints Aller/Immun Reports no additional complaints Physical Exam Const General: cooperative Orientation/consciousness: patient oriented x3 Resp Effort & Inspection: able to speak in complete sentences Neuro General: patient oriented x3 Psych Speech and movement: Clear speech present Attitude: cooperative Thought process: Normal thought process present Thought content: Normal thought content present Insight: Fair insight present (Psych) Judgement: Fair judgement present (Psych) Assessment & Plan Assessment & Plan (1) Sensation of pressure in bladder area: Code(s): R39.89 - Other symptoms and signs involving the genitourinary system Plan Patient reports bladder pressure has since improved. Recent PSA results reviewed with the patient today; as noted above. Discussed at length bladder triggers/irritants. Discussed in office cystoscopy if symptoms arise Discussed trial of low-dose Cialis; however patient declines at this time. Follow-up in 1 year with PVR; if not sooner with any questions, concerns, and or issues. Patient Instructions: The patient had an opportunity to ask questions regarding the treatment plan. All questions were answered. Physical exam, labs, and imaging were discussed and reviewed in detail. As well as risks, benefits, and discussion of treatment choices. No major barriers to understanding were identified. The patient expressed understanding and agreement with the above treatment plan. The patient was made aware they should contact our office by phone for worsening of their current condition, the appearance of new symptoms, or with any questions or concerns. Compliance is encouraged with any medications and follow up testing that is ordered. It is a privilege to be allowed the opportunity to participate in? your urological care.? Again, if you have any questions or concerns If you have any questions or concerns please do not hesitate to contact me. The office is [phone]. This note is constructed using voice recognition software. While every effort has been made to ensure accuracy metal organ pipe maker errors may have been included. Yours sincerely, ENE Rincon- Telehealth Telehealth Location of provider rendering services: practice address Location of patient: address on file Patient Identification confirmed using: Name, : Yes Telehealth method: voice only Patient verbally consented to treatment: Yes Patient verbally consented to billing insurance company: Yes Patient informed of any privacy concerns related to visit: Yes Coding Level of Care Code Tele Est Pt Level 3 (32473) Diagnoses Sensation of pressure in bladder area R39.89 Time Spent (min) 15
== END 2023-02-01 15:28 | disposition home or self-care (01) ==
LOC: HO.HUSH 14:54
PROVIDERS: PCP Registered Nurse; Visit Provider Nurse Practitioner Family
DX: R39.89 Other symptoms and signs involving the genitourinary system (principal)
CPT/HCPCS: 99213

== ENCOUNTER → 2023-02-01 14:54 | Outpatient (BNVA) | payer OTHER, SELFPAY | PROVIDERS: PCP Registered Nurse; Visit Provider Nurse Practitioner Family ==

== ENCOUNTER → 2023-02-16 15:54 | Outpatient (BNVA) | payer OTHER, SELFPAY | PROVIDERS: PCP Registered Nurse; Visit Provider Internal Medicine Endocrinology, Diabetes & Metabolism | DX: C73 Malignant neoplasm of thyroid gland (principal) | CPT/HCPCS: 99212 ==

== ENCOUNTER 2023-02-21 09:51 | Outpatient (REF) | payer OTHER, SELFPAY ==
[2023-02-21 11:40] LABS: Free T4 (Free Thyroxine) 1.19 ng/dL (0.71-1.85); Thyroid Stimulating Hormone 0.09 uIU/mL (0.32-4.0)
== END 2023-02-21 09:52 | disposition home or self-care (01) ==
LOC: HO.10HDL 09:51
PROVIDERS: Visit Provider Internal Medicine Endocrinology, Diabetes & Metabolism
DX: E03.9 Hypothyroidism, unspecified (principal); C73 Malignant neoplasm of thyroid gland
CPT/HCPCS: 36415; 84439; 84443

== ENCOUNTER 2023-02-23 14:50 | Outpatient (REF) | payer OTHER, SELFPAY ==
--- NOTE | ~2023-02-23 | US_ITS ---
EXAMINATION: US SOFT TISSUE HEAD/NECK CLINICAL INFORMATION: Malignant neoplasm of thyroid gland. History of Hurthle cell cancer status post thyroidectomy. Rule out recurrence or persistence. COMPARISON: Ultrasound soft tissue head/neck 08/02/2022. TECHNIQUE: Linear transducer morel-scale and color Doppler examination of the thyroid bed and surrounding soft tissue. FINDINGS: Status post total thyroidectomy without suspicious soft tissue within the thyroidectomy bed. There are several new right level 2 and 3 and left level 2 cervical nodes none demonstrating abnormal morphology or pathologic enlarged by short axis criteria measuring up to 2.1 x 0.7 x 1.2 cm on the right at level 2. A 0.4 x 0.7 x 1.1 cm left level 2 cervical node is increased in size from prior previously 0.6 x 0.5 x 0.6 cm though does not demonstrate pathologic enlargement. Few additional small cervical nodes none with abnormal morphology are not significantly changed or decreased in size. US/US soft tiss head and/or neck IMPRESSION: * A 0.4 x 1.1 cm left level 2 cervical node is increased in size from prior previously 0.6 x 0.5 cm though does not demonstrate pathologic enlargement by short axis criteria, however given growth and history of malignancy correlation with tissue sampling could be considered as metastasis cannot be excluded. * Status post total thyroidectomy without suspicious soft tissue within the thyroidectomy bed. * Several new right level 2 and 3 and left level 2 cervical nodes none demonstrating abnormal morphology or pathologic enlarged by short axis criteria.
== END 2023-02-23 14:51 | disposition home or self-care (01) ==
LOC: HO.US 14:50
PROVIDERS: PCP Registered Nurse; Visit Provider Internal Medicine Endocrinology, Diabetes & Metabolism
DX: C73 Malignant neoplasm of thyroid gland (principal)
CPT/HCPCS: 76536

== ENCOUNTER 2023-06-28 14:08 | Outpatient (AMB) | payer OTHER, SELFPAY ==
--- NOTE | 2023-06-28 14:16 | A.OFFVIS_ITS ---
Intake Intake Visit Reasons: follow up/bladder pain Intake Note: Patient presents for follow up Bladder Pain Urology Medications: none Blood Thinner: none PVR: 47ml's Spring Crater Required: No Accompanied by: Self / Same As Patient Allergies No Known Allergies Allergy (Verified 06/28/23 14:45) Medication List - Last Reconciled 06/28/23 by JORGE L Rincon levothyroxine 137 mcg PO DAILY HPI HPI Comments History of Present Illness Details lAexandr is a pleasant 43 year old male patient of Dr. Martinez. He has a past medical history of vitamin-D deficiency and thyroid cancer status post thyr oidectomy. He presents to the office today for follow-up. He reports noting over the last few weeks to be having right-sided lower abdominal pressure and feels this is radiating to his back. He reports having had a longstanding history of nephrolithiasis and is unsure if this is related to kidney stones. Patient with a previous workup approximately 1 year ago for these exact symptoms. Will obtain retroperitoneal ultrasound for further assessment evaluation. Discussed previous workup negative for nephrolithiasis and or any acute abnormalities. PSA 01/19--0.5. He otherwise denies urinary urgency, urinary frequency, incontinence, nocturia, hematuria, dysuria, foul smelling urine, changes to urinary stream, flank pain, fever, and or chills. When asked he does report not drinking enough water daily. In office urinalysis results reviewed with the patient today. PVR 47 mL. Discussed at length potential causes for lower abdominal pressure/discomfort. No CVA tenderness noted on exam today. In assessment of the patient today it appears pain is elicited upon palpation of the lower back. He otherwise offers no other issues or concerns at this time. [facility] Medical History Thyroid cancer Thyroid neoplasm Vitamin D deficiency Multinodular thyroid Surgical History Hx of total thyroidectomy Hx of partial thyroidectomy History of surgery Hx of lithotripsy Family History Father No known health problems Mother No known health problems Social History Alcohol intake: current Alcohol intake frequency: does not drink Patient Tobacco Use Status: Never used Tobacco Review of Systems Const All systems reviewed & are unremarkable except as noted in HPI and below Reports no additional complaints Eyes Reports no additional complaints ENT Reports no additional complaints Card Reports no additional complaints Resp Reports no additional complaints GI Reports no additional complaints Reports as per HPI and Reports other Musc Reports as per HPI Neuro Reports no additional complaints Psych Reports no additional complaints Endo Reports as per HPI Juanito/Lymph Reports no additional complaints Aller/Immun Reports no additional complaints Physical Exam Const General: cooperative, healthy appearing, comfortable, no acute distress, well developed, alert and awake Nutritional Appearance: average body habitus Orientation/consciousness: patient oriented x3 Limitations: no limitations HEENT Head: Yes normal to inspection, Yes normocephalic and Yes atraumatic Ears: hearing grossly normal bilaterally Eyes General: appearance normal, both eyes and all related structures Neck Neck: Yes normal visual inspection and Yes trachea midline Chest Chest palpation & inspection: normal inspection of the chest Resp Effort & Inspection: able to speak in complete sentences Cardio Rate: regular rate GI Inspection: Yes normal to inspection General: Yes no CVA tenderness Back/Spine/Pelvis Back: no CVA tenderness Skin General skin exam: no rashes or lesions noted Neuro General: patient oriented x3 Extrem General: Yes normal to inspection Psych Appearance: grossly normal and well kempt Mental Status: mental status grossly normal Speech and movement: Clear speech present Affect: normal affect Attitude: cooperative Thought process: Normal thought process present Thought content: Normal thought content present Insight: Fair insight present (Psych) Judgement: Fair judgement present (Psych) Office Procedures Post Void Residual Post Residual Void Post Void Residual (PVR): 47 [id number] Void Residual by ultrasound Results AMB Urinalysis, Automated UA Leukoctes 0 Jacoby/uL Last Edit by [employer] on 06/28/23 14:41 UA Nitrite Negative Last Edit by [employer] on 06/28/23 14:41 UA Urobilinogen 0.2 mg/dL Last Edit by [employer] on 06/28/23 14:41 UA Protein 0 mg/dL Last Edit by [employer] on 06/28/23 14:41 UA pH 6.0 Last Edit by [employer] on 06/28/23 14:41 UA Blood 0 Clinton/uL Last Edit by [employer] on 06/28/23 14:41 UA Specific [place] 1.025 Last Edit by Madiha Melissa on 06/28/23 14:41 UA Ketone Negative Last Edit by Madiha Melissa on 06/28/23 14:41 UA Bilirubin 0 mg/dL Last Edit by Madiha Melissa on 06/28/23 14:41 UA Glucose 0 mg/dL Last Edit by Madiha Melissa on 06/28/23 14:41 Results Reviewed Results Reviewed: Laboratory Last Values Urine pH (Auto) 6.0 06/28/23 14:23 Specific [place] (Auto) 1.025 06/28/23 14:23 Urine Protein (Auto) 0 mg/dL 06/28/23 14:23 Glucose (UA)(Auto) 0 mg/dL 06/28/23 14:23 Urine Ketones (Auto) Negative 06/28/23 14:23 Urine Blood (Auto) 0 Clinton/uL 06/28/23 14:23 Urine Nitrite (Auto) Negative 06/28/23 14:23 Urine Bilirubin (Auto) 0 mg/dL 06/28/23 14:23 Urine Urobilinogen (Auto) 0.2 mg/dL 06/28/23 14:23 Leukocyte Esterase (Auto) 0 Jacoby/uL 06/28/23 14:23 Assessment & Plan Assessment & Plan (1) Sensation of pressure in bladder area: Code(s): R39.89 - Other symptoms and signs involving the genitourinary system Plan In office urinalysis results reviewed with the patient today; as noted above. PVR 47 mL. Will obtain retroperitoneal ultrasound for further assessment evaluation. Discussed, stress, educated the importance of drinking plenty of water daily. Patient currently denies any bothersome urinary issues. He reports be happy with current voiding parameters. Follow-up in 1-2 months with imaging to be completed prior; or sooner with any issues, concerns, and or questions. Orders: Orders AMB Urinalysis Automated Today Z13.9 - Encounter for screening, unspecified AMB Post Void Residual by ultrasound Today R10.30 - Lower abdominal pain, unspecified US retroperitoneal comp Today R39.89 - Other symptoms and signs involving the genitourinary system Patient Instructions: The patient had an opportunity to ask questions regarding the treatment plan. All questions were answered. Physical exam, labs, and imaging were discussed and reviewed in detail. As well as risks, benefits, and discussion of treatment choices. No major barriers to understanding were identified. The patient expressed understanding and agreement with the above treatment plan. The patient was made aware they should contact our office by phone for worsening of their current condition, the appearance of new symptoms, or with any questions or concerns. Compliance is encouraged with any medications and follow up testing that is ordered. It is a privilege to be allowed the opportunity to participate in? your urological care.? Again, if you have any questions or concerns If you have any questions or concerns please do not hesitate to contact me. The office is [phone]. This note is constructed using voice recognition software. While every effort has been made to ensure accuracy software quality specialist errors may have been included. Yours sincerely, JORGE L Rincon Coding Level of Care Code Est Pt Level 3 (10532) Diagnoses Sensation of pressure in bladder area R39.89 CPT Codes Post Residual Void - PVR CPT Code: 48319-Atyg Void Residual by ultrasound ([id number])
== END 2023-06-28 14:44 | disposition home or self-care (01) ==
PROVIDERS: PCP Registered Nurse; Visit Provider Nurse Practitioner Family
DX: Z13.9 Encounter for screening, unspecified (principal); R39.89 Other symptoms and signs involving the genitourinary system
CPT/HCPCS: 99213

== ENCOUNTER → 2023-06-28 14:08 | Outpatient (BNVA) | payer OTHER, SELFPAY | PROVIDERS: PCP Registered Nurse; Visit Provider Nurse Practitioner Family | DX: R39.89 Other symptoms and signs involving the genitourinary system (principal); R10.30 Lower abdominal pain, unspecified | CPT/HCPCS: 51798; 81003; 99212 ==

== ENCOUNTER 2023-07-29 13:42 | Outpatient (REF) | payer OTHER, SELFPAY ==
--- NOTE | ~2023-07-29 | US_ITS ---
EXAMINATION: US RETROPERITONEAL COMPLETE (RENAL) CLINICAL INFORMATION: Other symptoms and signs involving the genitourinary system. COMPARISON: Ultrasound kidneys and bladder 08/05/2022. CT abdomen and pelvis 03/23/2022. TECHNIQUE: Real-time imaging of the kidneys and bladder. FINDINGS: RIGHT KIDNEY: 11.7 x 4.3 x 5.8 cm (SAG x AP x TRV). The kidney is normal in size, contour, and echogenicity. Renal cortical thickness is normal. No calculi or focal parenchymal lesions. No hydronephrosis. LEFT KIDNEY: 11.0 x 4.9 x 5.7 cm (SAG x AP x TRV). The kidney is normal in size, contour, and echogenicity. Renal cortical thickness is normal. No calculi or focal parenchymal lesions. No hydronephrosis. BLADDER: Well distended and normal. Left ureteral jet is demonstrated; right is not. Prevoid bladder volume is 499 mL. Postvoid bladder volume was negligible. ADDITIONAL FINDINGS: Prostate volume measured 49.4 mL US/US retroperitoneal comp IMPRESSION: Normal study.
== END 2023-07-29 13:43 | disposition home or self-care (01) ==
LOC: HO.US 13:42
PROVIDERS: PCP Registered Nurse; Visit Provider Nurse Practitioner Family
DX: R39.89 Other symptoms and signs involving the genitourinary system (principal)
CPT/HCPCS: 76770

== ENCOUNTER 2023-08-11 13:00 | Outpatient (AMB) | payer OTHER, SELFPAY ==
--- NOTE | 2023-08-11 13:15 | MHC.OFFVIS ---
Intake Intake Visit Reasons: 4w/US(set) Intake Note: Patient presents today for a follow-up on U/S Meds- None Allergies to Antibiotic- No Known Allergies Blood Thinner- None Post Void Residual: Patient Symptoms: None Allergies No Known Allergies Allergy (Verified 06/28/23 14:45) Medication List - Last Reconciled 08/11/23 by JORGE L Rincon levothyroxine 137 mcg PO DAILY HPI HPI Comments History of Present Illness Details Alexandr is a pleasant 43 year old male patient of Dr. Martinez who was accompanied by his at today's office visit. He has a past medical history of vitamin-D deficiency and thyroid cancer status post thyroidectomy. He presents to the office today for follow-up. Of note, patient was seen approximately 2 months ago at which time a retroperitoneal ultrasound was ordered as patient had been experiencing right-sided lower abdominal pressure radiating to his back with a history of nephrolithiasis. These results were reviewed with the patient today. Bilateral kidneys with no calculi, lesions, and or hydronephrosis noted. The bladder is well distended and normal. Prostate volume is approximately 50 mL. Normal retroperitoneal ultrasound study. In discussion with the patient today he reports noting improvement in symptoms since his last office visit here. He is observing ramadan. He currently denies any bothersome urinary issues or concerns. PSA 01/19--0.5. He otherwise denies urinary urgency, urinary frequency, incontinence, nocturia, hematuria, dysuria, foul smelling urine, changes to urinary stream, flank pain, fever, and or chills. When asked he does report not drinking enough water daily. In office urinalysis results reviewed with the patient today. He otherwise offers no other issues or concerns at this time. [facility] Medical History Thyroid cancer Thyroid neoplasm Vitamin D deficiency Multinodular thyroid Surgical History Hx of total thyroidectomy Hx of partial thyroidectomy History of surgery Hx of lithotripsy Family History Father No known health problems Mother No known health problems Social History Alcohol intake: current Alcohol intake frequency: does not drink Patient Tobacco Use Status: Never used Tobacco Review of Systems Const All systems reviewed & are unremarkable except as noted in HPI and below Reports no additional complaints Eyes Reports no additional complaints ENT Reports no additional complaints Card Reports no additional complaints Resp Reports no additional complaints GI Reports no additional complaints Reports as per HPI and Reports other Musc Reports as per HPI Neuro Reports no additional complaints Psych Reports no additional complaints Endo Reports as per HPI Juanito/Lymph Reports no additional complaints Aller/Immun Reports no additional complaints Physical Exam Const General: cooperative, healthy appearing, comfortable, no acute distress, well developed, alert and awake Nutritional Appearance: average body habitus Orientation/consciousness: patient oriented x3 Limitations: no limitations HEENT Head: Yes normal to inspection, Yes normocephalic and Yes atraumatic Ears: hearing grossly normal bilaterally Eyes General: appearance normal, both eyes and all related structures Neck Neck: Yes normal visual inspection and Yes trachea midline Chest Chest palpation & inspection: normal inspection of the chest Resp Effort & Inspection: able to speak in complete sentences Cardio Rate: regular rate GI Inspection: Yes normal to inspection General: Yes no CVA tenderness Back/Spine/Pelvis Back: no CVA tenderness Skin General skin exam: no rashes or lesions noted Neuro General: patient oriented x3 Extrem General: Yes normal to inspection Psych Appearance: grossly normal and well kempt Mental Status: mental status grossly normal Speech and movement: Clear speech present Affect: normal affect Attitude: cooperative Thought process: Normal thought process present Thought content: Normal thought content present Insight: Fair insight present (Psych) Judgement: Fair judgement present (Psych) Results AMB Urinalysis, Automated UA Leukoctes 0 Jacoby/uL Last Edit by Kenyatta Carranza CMA on 08/11/23 13:26 UA Nitrite Negative Last Edit by Kenyatta Carranza CMA on 08/11/23 13:26 UA Urobilinogen 0.2 mg/dL Last Edit by Kenyatta Carranza CMA on 08/11/23 13:26 UA Protein 0 mg/dL Last Edit by Kenyatta Carranza CMA on 08/11/23 13:26 UA pH 5.5 Last Edit by Kenyatta Carranza CMA on 08/11/23 13:26 UA Blood 10 [place]/uL Last Edit by Kenaytta Carranza CMA on 08/11/23 13:26 UA Specific [place] 1.025 [facility], [facility] on 08/11/23 13:26 UA Ketone Negative Last Edit by Kenyatta Carranza Carranza, [facility] on 08/11/23 13:26 UA Bilirubin 0 mg/dL Last Edit by [facility], [facility] on 08/11/23 13:26 UA Glucose 0 mg/dL Last Edit by [facility], [facility] on 08/11/23 13:26 Results Reviewed Results Reviewed: Laboratory Last Values Urine pH (Auto) 5.5 08/11/23 13:17 Specific [place] (Auto) 1.025 08/11/23 13:17 Urine Protein (Auto) 0 mg/dL 08/11/23 13:17 Glucose (UA)(Auto) 0 mg/dL 08/11/23 13:17 Urine Ketones (Auto) Negative 08/11/23 13:17 Urine Blood (Auto) 10 [place]/uL 08/11/23 13:17 Urine Nitrite (Auto) Negative 08/11/23 13:17 Urine Bilirubin (Auto) 0 mg/dL 08/11/23 13:17 Urine Urobilinogen (Auto) 0.2 mg/dL 08/11/23 13:17 Leukocyte Esterase (Auto) 0 Jacoby/uL 08/11/23 13:17 Date of Service: 07/29/23 EXAMINATION: US RETROPERITONEAL COMPLETE (RENAL) FINDINGS: RIGHT KIDNEY: 11.7 x 4.3 x 5.8 cm (SAG x AP x TRV). The kidney is normal in size, contour, and echogenicity. Renal cortical thickness is normal. No calculi or focal parenchymal lesions. No hydronephrosis. LEFT KIDNEY: 11.0 x 4.9 x 5.7 cm (SAG x AP x TRV). The kidney is normal in size, contour, and echogenicity. Renal cortical thickness is normal. No calculi or focal parenchymal lesions. No hydronephrosis. BLADDER: Well distended and normal. Left ureteral jet is demonstrated; right is not. Prevoid bladder volume is 499 mL. Postvoid bladder volume was negligible. ADDITIONAL FINDINGS: Prostate volume measured 49.4 mL IMPRESSION: Normal study. Assessment & Plan Assessment & Plan (1) Sensation of pressure in bladder area: Code(s): R39.89 - Other symptoms and signs involving the genitourinary system Plan In office urinalysis results reviewed with the patient today; as noted above. Recent retroperitoneal ultrasound results reviewed with the patient today; as noted above. Patient currently denies any bothersome urinary issues or concerns. He reports be happy with current voiding parameters. Discussed, educated, and stressed the importance of drinking plenty of water daily. Follow-up in 3 months with PVR; or sooner with any issues, concerns, and or questions. Orders: Orders AMB Urinalysis Automated Today R33.9 - Retention of urine, unspecified Patient Instructions: The patient had an opportunity to ask questions regarding the treatment plan. All questions were answered. Physical exam, labs, and imaging were discussed and reviewed in detail. As well as risks, benefits, and discussion of treatment choices. No major barriers to understanding were identified. The patient expressed understanding and agreement with the above treatment plan. The patient was made aware they should contact our office by phone for worsening of their current condition, the appearance of new symptoms, or with any questions or concerns. Compliance is encouraged with any medications and follow up testing that is ordered. It is a privilege to be allowed the opportunity to participate in? your urological care.? Again, if you have any questions or concerns If you have any questions or concerns please do not hesitate to contact me. The office is [phone]. This note is constructed using voice recognition software. While every effort has been made to ensure accuracy nurse sexual assault errors may have been included. Yours sincerely, JORGE L Rincon Coding Level of Care Code Est Pt Level 3 (63375) Diagnoses Sensation of pressure in bladder area R39.89
== END 2023-08-11 13:46 | disposition home or self-care (01) ==
PROVIDERS: PCP Registered Nurse; Visit Provider Nurse Practitioner Family
DX: R39.89 Other symptoms and signs involving the genitourinary system (principal)
CPT/HCPCS: 99213

== ENCOUNTER → 2023-08-11 13:00 | Outpatient (BNVA) | payer OTHER, SELFPAY | PROVIDERS: PCP Registered Nurse; Visit Provider Nurse Practitioner Family | DX: R39.89 Other symptoms and signs involving the genitourinary system (principal); R33.9 Retention of urine, unspecified | CPT/HCPCS: 81003; 99212 ==

== ENCOUNTER 2023-08-26 13:24 | Outpatient (REF) | payer OTHER, SELFPAY ==
[2023-08-26 15:46] LABS: Free T4 (Free Thyroxine) 1.12 ng/dL (0.71-1.85); Thyroid Stimulating Hormone 0.68 uIU/mL (0.32-4.0)
== END 2023-08-26 13:25 | disposition home or self-care (01) ==
LOC: HO.LAB 13:24
PROVIDERS: PCP Registered Nurse; Visit Provider Internal Medicine Endocrinology, Diabetes & Metabolism
DX: C73 Malignant neoplasm of thyroid gland (principal)
CPT/HCPCS: 36415; 84439; 84443

== ENCOUNTER 2023-09-01 16:15 | Outpatient (AMB) | payer OTHER, SELFPAY ==
[2023-09-01 16:22] VITALS: BP 112/62; PULSE 61; BMI 28.3
--- NOTE | 2023-09-01 16:22 | MHC.OFFVIS ---
Intake Vital Signs 09/01/23 16:22 Height 5 ft 6 in Weight 175 lb 0.752 oz BMI 28.3 BP 112/62 Blood Pressure Location Rt brachial Position Sitting Pulse 61 Pulse Source Pulse Oximeter Intake Visit Reasons: f/u Thyroid cancer-confirmed Intake Note: Patient present today for Thyroid cancer follow up visit. Notch Machine Operator Required: No Accompanied by: Self / Same As Patient Allergies No Known Allergies Allergy (Verified 09/01/23 16:25) Medication List - Last Reconciled 09/01/23 by Tamiko Lobato RN levothyroxine 137 mcg PO DAILY HPI HPI Comments History of Present Illness Details 43 YO Male with no significant PMHx who is seen in F/U for thyroid cancer. He and his report that in the summer of 2020 he began to notice swelling in his neck. He then had an US of the thyroid completed 01/19/2021. This revealed multiple bilateral thyroid nodules, including a 7 cm hypoechoic nodule within the L lobe. He underwent FNA biopsy of this 7 cm L lobe nodule 05/19/2021 with cytology suspicious for follicular neoplasm, hurthle cell type (bethesda category IV). Affirma was suspicious, giving the risk of malignancy of 50%. I recommended a total thyroidectomy given that he had bilateral thyroid nodules. He refused, and instead opted for a L hemithyroidectomy and underwent this 08/26/2021. 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 Margins were negative and no lymph nodes were assessed. pT3a. He then underwent a completion thyroidectomy 11/06/2021. Official surgical path was benign, per his report, but no official report has yet been received. He then underwent I131 ablation 02/19/2022 via thyroid hormone withdrawal. He received 96.7 mCi of I131. This revealed only physiologic uptake. Labs 02/08/2022 TSH 37.94 with TG 1.1 and TGAB <1. He remains on levothyroxine 150 mcg PO daily. TSH is at goal. He denies any personal history of head or neck irradiation. He denies any family history of thyroid cancer. US Thyroid: 01/19/2021 Right Thyroid Lobe: 5.1 x 1.5 x 1.8 cm, volume 7.2 mL. Parenchyma: The gland echotexture is homogeneous. Thyroid vascularity is increased. Left Thyroid Lobe: 7.7 x 4.8 x 5.6 cm, volume 108.2 mL. Parenchyma: The gland echotexture is heterogeneous. Thyroid vascularity is increased. Isthmus: 0.3 cm in maximum AP dimension. Estimated total number of nodules greater than or equal to 1 cm: 2. Specialty Transformer Assembler nodules are described as follows: 1. Location: Right superior. ?? ? Size: 0.98 x 0.90 x 1.04 cm, volume 0.48 mL. ?? ? Nodule characteristics: ?? ? Composition: Solid (2). ?? ? Echogenicity: Isoechoic (1). ?? ? Shape: Not taller than wide (0). ?? ? Margins: Lobulated (2). ?? ? Echogenic Foci: None (0). ?? ? ACR TI-RADS total points: 5 ?? ? ACR TI-RADS category: 4 2. Location: Right superior/mid. ?? ? Size: 0.91 x 0.96 x 0.81 cm, volume 0.37 mL. ?? ? Nodule characteristics: ?? ? Composition: Solid (2). ?? ? Echogenicity: Isoechoic (1). ?? ? Shape: Taller than wide (3). ?? ? Margins: Lobulated (2). ?? ? Echogenic Foci: None (0). ?? ? ACR TI-RADS total points: 8 ?? ? ACR TI-RADS category: 5 3. Location: Left. ?? ? Size: 7.04 x 5.73 x 5.87 cm, volume 124 mL. ?? ? Nodule characteristics: ?? ? Composition: Solid (2). ?? ? Echogenicity: Cannot be determined (1). ?? ? Shape: Not taller than wide (0). ?? ? Margins: Lobulated (2). ?? ? Echogenic Foci: Punctate echogenic foci (3). ?? ? ACR TI-RADS total points: 8 ?? ? ACR TI-RADS category: 5 NODES: No lymphadenopathy is seen in the tissue surrounding the thyroid gland. Labs: US/US soft tiss head and/or neck IMPRESSION: * A 0.4 x 1.1 cm left level 2 cervical node is increased in size from prior previously 0.6 x 0.5 cm though does not demonstrate pathologic enlargement by short axis criteria, however given growth and history of malignancy correlation with tissue sampling could be considered as metastasis cannot be excluded. * Status post total thyroidectomy without suspicious soft tissue within the thyroidectomy bed. * Several new right level 2 and 3 and left level 2 cervical nodes none demonstrating abnormal morphology or pathologic enlarged by short axis Laboratory Tests 08/30/22 12/13/22 10:33 13:06 TSH 2.38 0.16 L Free T4 0.92 1.42 PFSH Medical History Thyroid cancer Thyroid neoplasm Vitamin D deficiency Multinodular thyroid Surgical History Hx of total thyroidectomy Hx of partial thyroidectomy History of surgery Hx of lithotripsy Family History Father No known health problems Mother No known health problems Social History Alcohol intake: current Alcohol intake frequency: does not drink Patient Tobacco Use Status: Never used Tobacco Physical Exam Vital Signs: BMI result Body Mass Index 28.3 Const Other: Healed scar status post thyroidectomy. 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 Underwent completion thyroidectomy 11/06/2021. Official surgical path was benign per his report, We reviewed that he is considered low to intermediate risk for recurrence. He underwent I131 ablation with 96.7 mCi of I131 02/19/2022. Post-treatment WBS revealed only physiologic uptake. TG remains low, even stimulated. We reviewed that this is all very reassuring. Appears clinically and biochemically euthyroid on levothyroxine 137 mcg. Ultrasound showed abnormal level [address] Horn who performed neck ultrasound and noted normal lymph nodes. The plan is to continue the current management. We will obtain office note from Dr. Horn regarding ultrasound and blood work Coding Level of Care Code Est Pt Level 3 (07541) Diagnoses Thyroid cancer C73
== END 2023-09-01 16:47 | disposition home or self-care (01) ==
PROVIDERS: PCP Registered Nurse; Visit Provider Internal Medicine Endocrinology, Diabetes & Metabolism
DX: C73 Malignant neoplasm of thyroid gland (principal)
CPT/HCPCS: 99213

== ENCOUNTER → 2023-09-01 16:15 | Outpatient (BNVA) | payer OTHER, SELFPAY | PROVIDERS: PCP Registered Nurse; Visit Provider Internal Medicine Endocrinology, Diabetes & Metabolism | DX: C73 Malignant neoplasm of thyroid gland (principal); E89.0 Postprocedural hypothyroidism | CPT/HCPCS: 99212 ==

== ENCOUNTER 2024-01-03 14:29 | Outpatient (AMB) | payer OTHER, SELFPAY ==
--- NOTE | 2024-01-03 14:34 | MHC.OFFVIS ---
Intake Visit Reasons: follow up PVR Intake Note: Patient presents today for a follow-up/PVR Meds- None Allergies to Antibiotic- No Known Allergies Blood Thinner- None Post Void Residual:47ML'S TODAY'S PVR:0ML'S Paper Testing Supervisor Required: No Allergies No Known Allergies Allergy (Verified 01/03/24 17:55) Medication List - Last Reconciled 01/03/24 by JORGE L Rincon levothyroxine 137 mcg PO DAILY HPI Comments Details: Alexandr is a pleasant 43 year old male patient of Dr. Martinez. He has a past medical history of vitamin-D deficiency and thyroid cancer status post thyroidectomy. He presents to the office today for follow-up his ongoing lower urinary tract symptoms. In discussion with the patient today he reports since his last office visit here approximately 5 months ago he feels he has had intermittent lower urinary tract symptoms of bladder pressure however feels these episodes are infrequent. He continues to follow-up with endocrinology regarding his thyroid cancer. In office urinalysis results reviewed with the patient today. PH 5.5. Discussed and stressed the importance of adequate hydration relation to lower urinary tract symptoms as well as overall health and well-being. He otherwise denies urinary urgency, urinary frequency, incontinence, nocturia, hematuria, dysuria, foul smelling urine, changes to urinary stream, flank pain, fever, and or chills. He is happy with her current voiding parameters. Previous workup has included a retroperitoneal ultrasound noting bilateral kidneys with no calculi, lesions, and or hydronephrosis noted. The bladder is well distended and normal. Prostate volume is approximately 50 mL. Normal retroperitoneal ultrasound study.e currently denies any bothersome urinary issues or concerns. PSA 01/19--0.5. When asked he does report not drinking enough water daily. He otherwise offers no other issues or concerns at this time. [facility] Medical History Thyroid cancer Thyroid neoplasm Vitamin D deficiency Multinodular thyroid Surgical History Hx of total thyroidectomy Hx of partial thyroidectomy History of surgery Hx of lithotripsy Family History Father No known health problems Mother No known health problems Social History Alcohol intake: current Alcohol intake frequency: does not drink Patient Tobacco Use Status: Never used Tobacco Review of Systems Const All systems reviewed & are unremarkable except as noted in HPI and below Reports no additional complaints Eyes Reports no additional complaints ENT Reports no additional complaints Card Reports no additional complaints Resp Reports no additional complaints GI Reports no additional complaints Reports as per HPI and Reports other Musc Reports as per HPI Neuro Reports no additional complaints Psych Reports no additional complaints Endo Reports as per HPI Juanito/Lymph Reports no additional complaints Aller/Immun Reports no additional complaints Physical Exam Const General: cooperative, healthy appearing, comfortable, no acute distress, well developed, alert and awake Nutritional Appearance: average body habitus Orientation/consciousness: patient oriented x3 Limitations: no limitations HEENT Head: Yes normal to inspection, Yes normocephalic and Yes atraumatic Ears: hearing grossly normal bilaterally Eyes General: appearance normal, both eyes and all related structures Neck Neck: Yes normal visual inspection and Yes trachea midline Chest Chest palpation & inspection: normal inspection of the chest Resp Effort & Inspection: able to speak in complete sentences Cardio Rate: regular rate GI Inspection: Yes normal to inspection General: Yes no CVA tenderness Back/Spine/Pelvis Back: no CVA tenderness Skin General skin exam: no rashes or lesions noted Neuro General: patient oriented x3 Extrem General: Yes normal to inspection Psych Appearance: grossly normal and well kempt Mental Status: mental status grossly normal Speech and movement: Clear speech present Affect: normal affect Attitude: cooperative Thought process: Normal thought process present Thought content: Normal thought content present Insight: Fair insight present (Psych) Judgement: Fair judgement present (Psych) Office Procedures Post Void Residual Post Residual Void Post Void Residual (PVR): 0 [id number]-[id number] Void Residual by ultrasound Results AMB Urinalysis, Automated UA Leukoctes 0 Jacoby/uL Last Edit by PITER Lagunas on 01/03/24 14:52 UA Nitrite Negative Last Edit by PITER Lagunas on 01/03/24 14:52 UA Urobilinogen 0.2 mg/dL Last Edit by PITER Lagunas on 01/03/24 14:52 UA Protein 0 mg/dL Last Edit by PITER Lagunas on 01/03/24 14:52 UA pH 5.5 Last Edit by PITER Lagunas on 01/03/24 14:52 UA Blood 0 [place]/uL Last Edit by PITER Lagunas on 01/03/24 14:52 UA Specific [place] 1.025 Last Edit by PITER Lagunas on 01/03/24 14:52 UA Ketone Negative Last Edit by PITER Lagunas on 01/03/24 14:52 UA Bilirubin 0 mg/dL Last Edit by PITER Lagunas on 01/03/24 14:52 UA Glucose 0 mg/dL Last Edit by PITER Lagunas on 01/03/24 14:52 Results Reviewed Results Reviewed: Laboratory Last Values Urine pH (Auto) 5.5 01/03/24 14:52 Specific [place] (Auto) 1.025 01/03/24 14:52 Urine Protein (Auto) 0 mg/dL 01/03/24 14:52 Glucose (UA)(Auto) 0 mg/dL 01/03/24 14:52 Urine Ketones (Auto) Negative 01/03/24 14:52 Urine Blood (Auto) 0 [place]/uL 01/03/24 14:52 Urine Nitrite (Auto) Negative 01/03/24 14:52 Urine Bilirubin (Auto) 0 mg/dL 01/03/24 14:52 Urine Urobilinogen (Auto) 0.2 mg/dL 01/03/24 14:52 Leukocyte Esterase (Auto) 0 Jacoby/uL 01/03/24 14:52 Assessment & Plan Assessment & Plan (1) Sensation of pressure in bladder area: Code(s): R39.89 - Other symptoms and signs involving the genitourinary system Category: Medical Plan In office urinalysis results reviewed with the patient today; as noted above. Discussed, educated, and stressed the importance of adequate hydration in relation to lower urinary tract symptoms as well as overall health and well-being. Patient currently denies any bothersome urinary issues or concerns. He is happy with his current voiding parameters. Discussed surveillance monitoring. Follow-up in 3 months with PVR; or sooner with any issues, concerns, and or questions. Orders: Orders AMB Urinalysis Automated Today Z13.9 - Encounter for screening, unspecified Patient Instructions: The patient had an opportunity to ask questions regarding the treatment plan. All questions were answered. Physical exam, labs, and imaging were discussed and reviewed in detail. As well as risks, benefits, and discussion of treatment choices. No major barriers to understanding were identified. The patient expressed understanding and agreement with the above treatment plan. The patient was made aware they should contact our office by phone for worsening of their current condition, the appearance of new symptoms, or with any questions or concerns. Compliance is encouraged with any medications and follow up testing that is ordered. It is a privilege to be allowed the opportunity to participate in? your urological care.? Again, if you have any questions or concerns If you have any questions or concerns please do not hesitate to contact me. The office is [phone]. This note is constructed using voice recognition software. While every effort has been made to ensure accuracy turbine mechanic errors may have been included. Yours sincerely, JORGE L Rincon Coding Level of Care Code Est Pt Level 3 (07177) Diagnoses Sensation of pressure in bladder area R39.89 CPT Codes Post Residual Void - PVR CPT Code: 19877-Kald Void Residual by ultrasound ([id number])
== END 2024-01-03 15:11 | disposition home or self-care (01) ==
PROVIDERS: PCP Registered Nurse; Visit Provider Nurse Practitioner Family
DX: Z13.9 Encounter for screening, unspecified (principal); R39.89 Other symptoms and signs involving the genitourinary system
CPT/HCPCS: 99213

== ENCOUNTER → 2024-01-03 14:29 | Outpatient (BNVA) | payer OTHER, SELFPAY | PROVIDERS: PCP Registered Nurse; Visit Provider Nurse Practitioner Family | DX: R39.89 Other symptoms and signs involving the genitourinary system (principal) | CPT/HCPCS: 51798; 81003; 99212 ==

== ENCOUNTER 2024-04-02 12:45 | Outpatient (REF) | payer OTHER, SELFPAY ==
[2024-04-02 16:06] LABS: Free T4 (Free Thyroxine) 1.41 ng/dL (0.71-1.85); Thyroid Stimulating Hormone 0.53 uIU/mL (0.32-4.0)
[2024-04-05 23:08] LABS: Thyroglobulin Antibody <1 IU/mL (<=1); Thyroglobulin Level <0.1 ng/mL
== END 2024-04-02 12:46 | disposition home or self-care (01) ==
LOC: HO.LAB 12:45
PROVIDERS: PCP Registered Nurse; Visit Provider Internal Medicine Endocrinology, Diabetes & Metabolism
DX: C73 Malignant neoplasm of thyroid gland (principal)
CPT/HCPCS: 36415; 84432; 84439; 84443; 86800; 99212

== ENCOUNTER 2024-04-02 12:45 | Outpatient (AMB) | payer OTHER, SELFPAY ==
--- NOTE | 2024-04-02 12:51 | A.OFFVIS_ITS ---
Vital Signs 04/02/24 12:54 Height 5 ft 6 in Weight 180 lb 15.992 oz BMI 29.2 BP 100/64 Blood Pressure Location Rt brachial Position Sitting Pulse 65 Pulse Source Pulse Oximeter Intake Visit Reasons: f/u Thyroid cancer-conf Intake Note: Patient present today for Thyroid cancer follow up visit Language Translator Required: No Accompanied by: Self / Same As Patient Allergies No Known Allergies Allergy (Verified 04/02/24 12:54) HPI Comments Details: 43 YO Male with no significant PMHx who is seen in F/U for thyroid cancer. He and his report that in the summer of 2020 he began to notice swelling in his neck. He then had an US of the thyroid completed 01/19/2021. This revealed multiple bilateral thyroid nodules, including a 7 cm hypoechoic nodule within the L lobe. He underwent FNA biopsy of this 7 cm L lobe nodule 05/19/2021 with cytology suspicious for follicular neoplasm, hurthle cell type (bethesda category IV). Affirma was suspicious, giving the risk of malignancy of 50%. I recommended a total thyroidectomy given that he had bilateral thyroid nodules. He refused, and instead opted for a L hemithyroidectomy and underwent this 08/26/2021. 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 Margins were negative and no lymph nodes were assessed. pT3a. He then underwent a completion thyroidectomy 11/06/2021. Official surgical path was benign, per his report, but no official report has yet been received. He then underwent I131 ablation 02/19/2022 via thyroid hormone withdrawal. He received 96.7 mCi of I131. This revealed only physiologic uptake. Labs 02/08/2022 TSH 37.94 with TG 1.1 and TGAB <1. He remains on levothyroxine 150 mcg PO daily. TSH is at goal. He denies any personal history of head or neck irradiation. He denies any family history of thyroid cancer. US Thyroid: 01/19/2021 Right Thyroid Lobe: 5.1 x 1.5 x 1.8 cm, volume 7.2 mL. Parenchyma: The gland echotexture is homogeneous. Thyroid vascularity is increased. Left Thyroid Lobe: 7.7 x 4.8 x 5.6 cm, volume 108.2 mL. Parenchyma: The gland echotexture is heterogeneous. Thyroid vascularity is increased. Isthmus: 0.3 cm in maximum AP dimension. Estimated total number of nodules greater than or equal to 1 cm: 2. [employer] nodules are described as follows: 1. Location: Right superior. ?? ? Size: 0.98 x 0.90 x 1.04 cm, volume 0.48 mL. ?? ? Nodule characteristics: ?? ? Composition: Solid (2). ?? ? Echogenicity: Isoechoic (1). ?? ? Shape: Not taller than wide (0). ?? ? Margins: Lobulated (2). ?? ? Echogenic Foci: None (0). ?? ? ACR TI-RADS total points: 5 ?? ? ACR TI-RADS category: 4 2. Location: Right superior/mid. ?? ? Size: 0.91 x 0.96 x 0.81 cm, volume 0.37 mL. ?? ? Nodule characteristics: ?? ? Composition: Solid (2). ?? ? Echogenicity: Isoechoic (1). ?? ? Shape: Taller than wide (3). ?? ? Margins: Lobulated (2). ?? ? Echogenic Foci: None (0). ?? ? ACR TI-RADS total points: 8 ?? ? ACR TI-RADS category: 5 3. Location: Left. ?? ? Size: 7.04 x 5.73 x 5.87 cm, volume 124 mL. ?? ? Nodule characteristics: ?? ? Composition: Solid (2). ?? ? Echogenicity: Cannot be determined (1). ?? ? Shape: Not taller than wide (0). ?? ? Margins: Lobulated (2). ?? ? Echogenic Foci: Punctate echogenic foci (3). ?? ? ACR TI-RADS total points: 8 ?? ? ACR TI-RADS category: 5 NODES: No lymphadenopathy is seen in the tissue surrounding the thyroid gland. Labs: US/US soft tiss head and/or neck IMPRESSION: * A 0.4 x 1.1 cm left level 2 cervical node is increased in size from prior previously 0.6 x 0.5 cm though does not demonstrate pathologic enlargement by short axis criteria, however given growth and history of malignancy correlation with tissue sampling could be considered as metastasis cannot be excluded. * Status post total thyroidectomy without suspicious soft tissue within the thyroidectomy bed. * Several new right level 2 and 3 and left level 2 cervical nodes none demonstrating abnormal morphology or pathologic enlarged by short axis Laboratory Tests 08/30/22 12/13/22 10:33 13:06 TSH 2.38 0.16 L Free T4 0.92 1.42 Had recent neck ultrasound [facility] Dr. Horn that did not show any abnormal lymph nodes PFSH Medical History Thyroid cancer Thyroid neoplasm Vitamin D deficiency Multinodular thyroid Surgical History Hx of total thyroidectomy Hx of partial thyroidectomy History of surgery Hx of lithotripsy Family History Father No known health problems Mother No known health problems Social History Alcohol intake: current Alcohol intake frequency: does not drink Patient Tobacco Use Status: Never used Tobacco Physical Exam Vital Signs: BMI result Body Mass Index 29.2 Const Other: Healed scar status post thyroidectomy. 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 Underwent completion thyroidectomy 11/06/2021. Official surgical path was benign per his report, currently on levothyroxine 137 mcg. Appears clinically euthyroid We reviewed that he is considered low to intermediate risk for recurrence. He underwent I131 ablation with 96.7 mCi of I131 02/19/2022. Post-treatment WBS revealed only physiologic uptake. TG remains low, even stimulated. We reviewed that this is all very reassuring. Appears clinically and biochemically euthyroid on levothyroxine 137 mcg. Ultrasound showed abnormal level [address] Horn who performed neck ultrasound and noted normal lymph nodes. The plan is to continue the current management. We will check TSH, free T4 and thyroglobulin and adjust levothyroxine accordingly. Will have patient follow-up with Dr. Prescott an biosecurity officer in our practice with expertise in neck ultrasound and thyroid cancer Orders: Orders Free T4 (Free Thyroxine) Today C73 - Malignant neoplasm of thyroid gland Thyroid Stimulating Hormone Today C73 - Malignant neoplasm of thyroid gland Thyroglobulin Tumor Marker Today C73 - Malignant neoplasm of thyroid gland Coding Level of Care Code Est Pt Level 3 (06324) Diagnoses Thyroid cancer C73
[2024-04-02 12:54] VITALS: BP 100/64; PULSE 65; BMI 29.2
== END 2024-04-02 14:07 | disposition home or self-care (01) ==
LOC: HO.ENCR 12:46
PROVIDERS: PCP Registered Nurse; Visit Provider Internal Medicine Endocrinology, Diabetes & Metabolism
DX: C73 Malignant neoplasm of thyroid gland (principal)
CPT/HCPCS: 99213

== ENCOUNTER 2024-04-04 13:42 | Outpatient (AMB) | payer OTHER, SELFPAY ==
--- NOTE | 2024-04-04 13:54 | A.OFFVIS_ITS ---
Intake Visit Reasons: 3m follow up Intake Note: Patient presents today for a follow-up/PVR Meds- None Allergies to Antibiotic- No Known Allergies Blood Thinner- None PVR: 0ml's Elastic Tape Inserter Required: No Accompanied by: Self / Same As Patient Allergies No Known Allergies Allergy (Verified 04/04/24 19:42) Medication List - Last Reconciled 04/04/24 by JORGE L Rincon levothyroxine 137 mcg PO DAILY HPI Comments Details: Alexandr is a pleasant 43 year old male patient of Dr. Martinez. He has a past medical history of vitamin-D deficiency and thyroid cancer status post thyroidectomy. He presents to the office today for follow-up his ongoing lower urinary tract symptoms. In discussion with the patient today he reports since his last office visit here he has had no bothersome urinary issues or concerns. Patient with a previous history of ongoing intermittent lower urinary tract sym ptoms of bladder pressure however he feels this has significantly improved. He currently denies any bothersome urinary issues or concerns. In office urinalysis results reviewed with the patient today. PVR 0 mL. Previous workup has included a retroperitoneal ultrasound noting bilateral kidneys with no calculi, lesions, and or hydronephrosis noted. The bladder is well distended and normal. Prostate volume is approximately 50 mL. Normal retroperitoneal ultrasound study. He currently denies any bothersome urinary issues or concerns. PSA 01/19 0.5. He otherwise offers no other issues or concerns at this time. [facility] Medical History Thyroid cancer Thyroid neoplasm Vitamin D deficiency Multinodular thyroid Surgical History Hx of total thyroidectomy Hx of partial thyroidectomy History of surgery Hx of lithotripsy Family History Father No known health problems Mother No known health problems Social History Alcohol intake: current Alcohol intake frequency: does not drink Patient Tobacco Use Status: Never used Tobacco Review of Systems Const All systems reviewed & are unremarkable except as noted in HPI and below Reports no additional complaints Eyes Reports no additional complaints ENT Reports no additional complaints Card Reports no additional complaints Resp Reports no additional complaints GI Reports no additional complaints Reports as per HPI and Reports other Musc Reports as per HPI Neuro Reports no additional complaints Psych Reports no additional complaints Endo Reports as per HPI Juanito/Lymph Reports no additional complaints Aller/Immun Reports no additional complaints Physical Exam Const General: cooperative, healthy appearing, comfortable, no acute distress, well developed, alert and awake Nutritional Appearance: average body habitus Orientation/consciousness: patient oriented x3 Limitations: no limitations HEENT Head: Yes normal to inspection, Yes normocephalic and Yes atraumatic Ears: hearing grossly normal bilaterally Eyes General: appearance normal, both eyes and all related structures Neck Neck: Yes normal visual inspection and Yes trachea midline Chest Chest palpation & inspection: normal inspection of the chest Resp Effort & Inspection: able to speak in complete sentences Cardio Rate: regular rate GI Inspection: Yes normal to inspection General: Yes no CVA tenderness Back/Spine/Pelvis Back: no CVA tenderness Skin General skin exam: no rashes or lesions noted Neuro General: patient oriented x3 Extrem General: Yes normal to inspection Psych Appearance: grossly normal and well kempt Mental Status: mental status grossly normal Speech and movement: Clear speech present Affect: normal affect Attitude: cooperative Thought process: Normal thought process present Thought content: Normal thought content present Insight: Fair insight present (Psych) Judgement: Fair judgement present (Psych) Office Procedures Post Void Residual Post Residual Void Post Void Residual (PVR): [id number] Void Residual by ultrasound Results AMB Urinalysis, Automated UA Leukoctes 0 Jacoby/uL Last Edit by [email or web address] Melissa on 04/04/24 14:31 UA Nitrite Last Edit by Madiha Melissa on 04/04/24 14:31 UA Urobilinogen 0.2 mg/dL Last Edit by [email or web address] Melissa on 04/04/24 14:31 UA Protein 0 mg/dL Last Edit by [email or web address] Melissa on 04/04/24 14:31 UA pH 6.0 Last Edit by Madiha Melissa on 04/04/24 14:31 UA Blood 0 Clinton/uL Last Edit by Madiha Melissa on 04/04/24 14:31 UA Specific Commerce 1.020 Last Edit by Madiha Melissa on 04/04/24 14:31 UA Ketone Last Edit by Madiha Melissa on 04/04/24 14:31 UA Bilirubin 0 mg/dL Last Edit by Madiha Melissa on 04/04/24 14:31 UA Glucose 0 mg/dL Last Edit by Madiha Melissa on 04/04/24 14:31 Results Reviewed Results Reviewed: Laboratory Last Values Urine pH (Auto) 6.0 04/04/24 14:30 Specific Commerce (Auto) 1.020 04/04/24 14:30 Urine Protein (Auto) 0 mg/dL 04/04/24 14:30 Glucose (UA)(Auto) 0 mg/dL 04/04/24 14:30 Urine Blood (Auto) 0 Clinton/uL 04/04/24 14:30 Urine Bilirubin (Auto) 0 mg/dL 04/04/24 14:30 Urine Urobilinogen (Auto) 0.2 mg/dL 04/04/24 14:30 Leukocyte Esterase (Auto) 0 Jacoby/uL 04/04/24 14:30 Assessment & Plan Assessment & Plan (1) Sensation of pressure in bladder area: Code(s): R39.89 - Other symptoms and signs involving the genitourinary system Category: Medical Plan In office urinalysis results reviewed with the patient today; as noted above. PVR 0 mL Discussed, educated, and stressed the importance of adequate hydration in relation to lower urinary tract symptoms as well as overall health and well- being. Patient currently denies any bothersome urinary issues or concerns. He is happy with his current voiding parameters. Follow-up in 1 year with PVR; or sooner with any issues, concerns, and or questions. Orders: Orders Prostate Specific Antigen 1 Year N40.0 - Benign prostatic hyperplasia without lower urinary tract symptoms AMB Post Void Residual by ultrasound Today R39.89 - Other symptoms and signs involving the genitourinary system AMB Urinalysis Automated Today Z13.9 - Encounter for screening, unspecified Patient Instructions: The patient had an opportunity to ask questions regarding the treatment plan. All questions were answered. Physical exam, labs, and imaging were discussed and reviewed in detail. As well as risks, benefits, and discussion of treatment choices. No major barriers to understanding were identified. The patient expressed understanding and agreement with the above treatment plan. The patient was made aware they should contact our office by phone for worsening of their current condition, the appearance of new symptoms, or with any questions or concerns. Compliance is encouraged with any medications and follow up testing that is ordered. It is a privilege to be allowed the opportunity to participate in? your urological care.? Again, if you have any questions or concerns If you have any questions or concerns please do not hesitate to contact me. The office is [phone]. This note is constructed using voice recognition software. While every effort has been made to ensure accuracy knapsack sprayer errors may have been included. Yours sincerely, JORGE L Rincon Coding Level of Care Code Est Pt Level 3 (89186) Complex EM visit Add On G2211 Diagnoses Sensation of pressure in bladder area R39.89 CPT Codes Post Residual Void - PVR CPT Code: 47403-Guyz Void Residual by ultrasound ([id number])
== END 2024-04-04 14:25 | disposition home or self-care (01) ==
LOC: HO.HUSH 13:43
PROVIDERS: PCP Registered Nurse; Visit Provider Nurse Practitioner Family
DX: Z13.9 Encounter for screening, unspecified (principal); R39.89 Other symptoms and signs involving the genitourinary system
CPT/HCPCS: 99213; G2211

== ENCOUNTER → 2024-04-04 13:42 | Outpatient (BNVA) | payer OTHER, SELFPAY | PROVIDERS: PCP Registered Nurse; Visit Provider Nurse Practitioner Family | DX: N40.0 Benign prostatic hyperplasia without lower urinary tract symptoms (principal); R39.89 Other symptoms and signs involving the genitourinary system | CPT/HCPCS: 51798; 81003; 99212 ==

== ENCOUNTER 2024-07-03 12:42 | Outpatient (AMB) | payer OTHER, SELFPAY ==
[2024-07-03 12:50] VITALS: BP 130/76; PULSE 57; O2SAT 95; BMI 30.5
--- NOTE | 2024-07-03 12:50 | A.OFFVIS_ITS ---
Vital Signs 3 07/03/24 12:50 Height 5 ft 6 in Weight 188 lb 11.451 oz BMI 30.5 BP 130/76 Blood Pressure Location Lt brachial Position Sitting Pulse 57 Pulse Source Pulse Oximeter Pulse Oximetry (%) 95 Oxygen Delivery Method Room Air Intake Visit Reasons: f/u thyroid cancer Intake Note: Patient present today for thyroid cancer follow up visit. 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 Margins were negative, no lymph nodes were assessed. AJCC stage I, pT3 a. JOHN initial intermediate risk of recurrence. Is post completion thyroidectomy 11/06/2021 with benign pathology. Status post radioactive iodine treatment with I 131 96.7 mCi 02/19/2022. Currently JOHN excellent response to therapy. Here with Dominic History of thyroid cancer in detail 2020: Noticed swelling in his neck 12/30/2020: Ultrasound thyroid revealed multiple bilateral thyroid nodules including a 7 cm hypoechoic nodule in the left lobe 05/19/2021: FNA biopsy of the 7 cm left lobe nodule with cytology suspicious for follicular neoplasm, Hurthle cell type ([place] category 4) Afirma was suspicious giving the risk of malignancy of 50% 08/26/2021: Status post left hemithyroidectomy (patient opted out of total thyroidectomy), revealed 6.8 cm focus of Hurthle cell carcinoma with no angioinvasion, no lymphatic invasion, no extrathyroidal extension. Margins were negative, no lymph nodes were assessed, AJCC stage I, pT3 8. AJCC initial intermediate risk of recurrence. 11/06/2021: Status post completion thyroidectomy, with benign pathology. 02/19/2022: Status post treatment with radioactive iodine I 131 96.7 mCi. Whole-body scan revealed physiologic uptake. 02/08/2022 TSH 37.94, TG 1.1, TG antibody less than 1 08/02/2022: Us neck showed Multiple bilateral normal lymph nodes 02/23/2023: Us neck Normal looking lymph nodes, an enlarged left level 2 lymph node measuring 0.4 X 0.7 X 1.1 cm, increased from size compared to previous 0.6 X 0.5 and 0.6 cm. 03/2023: Saw Dr. Jillian Horn at [facility] who did an office ultrasound which did not reveal any abnormal lymph nodes. 09/2023: Saw Dr. Horn again and in office US per patient was okay. We will request those records. Currently on 137 mcg of levothyroxine daily Bowel movements are regular. Weight is stable. No palpitations. No tremors . No compressive symptoms. Physical exam General: sitting comfortably in no acute distress HEENT: normocephalic/atraumatic, moist oral mucosa Neck: supple, symmetrical, Cardiac: normal heart sounds Pulm: normal breath sounds B/L, no added breath sounds Abd: not distended, no tenderness Extremities: no edema, no signs of myxedema Neuro: AAO x3, Speech: normal, no facial droop, moving all 4 extremities Laboratory Tests 06/17/21 10/08/21 12/14/21 15:19 10:00 14:29 TSH 1.38 2.50 Free T4 0.96 1.02 1.42 Thyroglobulin Thyroglobulin Antibody 01/04/22 01/04/22 01/04/22 10:12 10:12 10:12 TSH 1.67 Free T4 1.21 Thyroglobulin <0.1 <0.1 L Thyroglobulin Antibody <1 <1 01/18/22 02/04/22 02/08/22 10:29 15:25 12:47 TSH 4.14 H 41.58 H 37.94 H Free T4 < 0.40 L < 0.40 L Thyroglobulin <0.1 0.9 L 1.1 L Thyroglobulin Antibody <1 <1 <1 04/05/22 08/30/22 11/11/22 13:53 10:33 16:11 TSH 1.44 2.38 0.21 L Free T4 1.41 0.92 1.45 Thyroglobulin <0.1 <0.1 Thyroglobulin Antibody <1 <1 12/13/22 02/21/23 08/26/23 13:06 10:00 13:39 TSH 0.16 L 0.09 L 0.68 Free T4 1.42 1.19 1.12 Thyroglobulin <0.1 Thyroglobulin Antibody <1 04/02/24 13:23 TSH 0.53 Free T4 1.41 Thyroglobulin <0.1 Thyroglobulin Antibody <1 US SOFT TISSUE HEAD/NECK 02/23/2023 CLINICAL INFORMATION: Malignant neoplasm of thyroid gland. History of Hurthle cell cancer status post thyroidectomy. Rule out recurrence or persistence. COMPARISON: Ultrasound soft tissue head/neck 08/02/2022. TECHNIQUE: Linear transducer morel-scale and color Doppler examination of the thyroid bed and surrounding soft tissue. FINDINGS: Status post total thyroidectomy without suspicious soft tissue within the thyroidectomy bed. There are several new right level 2 and 3 and left level 2 cervical nodes none demonstrating abnormal morphology or pathologic enlarged by short axis criteria measuring up to 2.1 x 0.7 x 1.2 cm on the right at level 2. A 0.4 x 0.7 x 1.1 cm left level 2 cervical node is increased in size from prior previously 0.6 x 0.5 x 0.6 cm though does not demonstrate pathologic enlargement. Few additional small cervical nodes none with abnormal morphology are not significantly changed or decreased in size. US/US soft tiss head and/or neck IMPRESSION: * A 0.4 x 1.1 cm left level 2 cervical node is increased in size from prior previously 0.6 x 0.5 cm though does not demonstrate pathologic enlargement by short axis criteria, however given growth and history of malignancy correlation with tissue sampling could be considered as metastasis cannot be excluded. * Status post total thyroidectomy without suspicious soft tissue within the thyroidectomy bed. * Several new right level 2 and 3 and left level 2 cervical nodes none demonstrating abnormal morphology or pathologic enlarged by short axis criteria. US SOFT TISSUE HEAD/NECK 08/02/22 CLINICAL INFORMATION: Malignant neoplasm of thyroid gland. COMPARISON: CT soft tissue neck without contrast 06/29/2021. US-guided thyroid biopsy 05/19/2021. Ultrasound thyroid 01/19/2021. TECHNIQUE: Ultrasound of the neck soft tissues is performed with high frequency morel-scale imaging and color Doppler. FINDINGS: RIGHT NECK SOFT TISSUES: Right neck soft tissues and nodes are as follows: Level 5A: 1.1 x 0.4 x 0.6 cm. Normal jose architecture. LEFT NECK SOFT TISSUES: Left neck soft tissues and nodes are as follows: Level 2: 0.6 x 0.5 x 0.6 cm. Normal jose architecture. Level 3: 1.1 x 0.3 x 0.6 cm. Normal jose architecture. Level 3: 1.1 x 0.4 x 0.6 cm. Normal jose architecture. Level 5A: 1.4 x 0.5 x 0.9 cm. Normal jose architecture. Level 5B: 1.4 x 0.5 x 0.7 cm. Normal jose architecture. OTHER: Prior thyroidectomy. No additional findings. US/US soft tiss head and/or neck IMPRESSION: Shotty, nonpathologically enlarged bilateral cervical lymph nodes are seen, as detailed. These are nonspecific and should be managed on a clinical basis. CT SOFT TISSUE NECK WITHOUT CONTRAST 06/29/21 CLINICAL INFORMATION: Thyroid cancer. COMPARISON: Previous thyroid ultrasound 01/19/2021. TECHNIQUE: Helical imaging was performed in the axial plane with generation of coronal and sagittal reformatted images. This CT examination was performed using dose optimization techniques as appropriate, variously including the following: *Automated exposure control *Adjustment of mA and/or kV according to patient size (this includes techniques or standardized protocols for targeted exams where dose is matched to indication/reason for exam; i.e. extremities or head) *Use of iterative reconstruction technique DLP: 455 mGy-cm FINDINGS: There is a large, partially cystic/partially solid left thyroid nodule. This measures 5.2 x 5.6 x 7.2 cm in transverse, AP and longitudinal dimensions. This occupies the entire left lobe. This displaces the trachea to the right. This extends inferiorly to the level of the top of the manubrium/sternomanubrial joints. There are small right thyroid nodules, largest measuring 8 x 10 mm in AP and transverse dimensions. There is diffuse shotty cervical lymphadenopathy seen bilaterally. Largest lymph nodes are upper normal in size in the bilateral jugulodigastric region measuring 1 cm in short axis No enlarged lymph nodes are seen. The visualized intracranial structures are normal. The visualized orbits are normal. The visualized paranasal sinuses, mastoid air cells and middle ears are clear. The salivary glands are normal. There is prominent soft tissue seen in the oropharynx probably representing prominent adenoidal soft tissue. No asymmetry to suggest a focal mass is seen. There is asymmetric appearance of the piriform sinuses with the left significantly larger than the right. Possible left vocal cord paralysis cannot be excluded and clinical correlation is recommended. There is no mediastinal lymphadenopathy. The visualized lung apices are clear. Vascular structures are not well assessed without contrast. There is curvature of the cervical spine to the right and degenerative changes. CT/CT soft tissue neck wo con IMPRESSION: Large, partially solid/partially cystic left thyroid nodule. This displaces the trachea to the right. This extends inferior to the manubrium. Small right thyroid nodules. Diffuse cervical lymphadenopathy. Largest lymph nodes are upper normal size. Asymmetric appearance of the piriform sinuses questionable for possible left vocal cord paralysis. Clinical correlation recommended. US THYROID 01/19/21 CLINICAL INFORMATION: Mass, lump left neck going up to patient's jaw. COMPARISON: None TECHNIQUE: Linear transducer grayscale and color Doppler examination with attention to the region of the thyroid. FINDINGS: SIZE: Measurements of the thyroid lobes and nodules are given in sagittal, anteroposterior and transverse dimensions respectively. Right Thyroid Lobe: 5.1 x 1.5 x 1.8 cm, volume 7.2 mL. Parenchyma: The gland echotexture is homogeneous. Thyroid vascularity is increased. Left Thyroid Lobe: 7.7 x 4.8 x 5.6 cm, volume 108.2 mL. Parenchyma: The gland echotexture is heterogeneous. Thyroid vascularity is increased. Isthmus: 0.3 cm in maximum AP dimension. Estimated total number of nodules greater than or equal to 1 cm: 2. Telegraph Repeater Mechanic nodules are described as follows: 1. Location: Right superior. Size: 0.98 x 0.90 x 1.04 cm, volume 0.48 mL. Nodule characteristics: Composition: Solid (2). Echogenicity: Isoechoic (1). Shape: Not taller than wide (0). Margins: Lobulated (2). Echogenic Foci: None (0). ACR TI-RADS total points: 5 ACR TI-RADS category: 4 2. Location: Right superior/mid. Size: 0.91 x 0.96 x 0.81 cm, volume 0.37 mL. Nodule characteristics: Composition: Solid (2). Echogenicity: Isoechoic (1). Shape: Taller than wide (3). Margins: Lobulated (2). Echogenic Foci: None (0). ACR TI-RADS total points: 8 ACR TI-RADS category: 5 3. Location: Left. Size: 7.04 x 5.73 x 5.87 cm, volume 124 mL. Nodule characteristics: Composition: Solid (2). Echogenicity: Cannot be determined (1). Shape: Not taller than wide (0). Margins: Lobulated (2). Echogenic Foci: Punctate echogenic foci (3). ACR TI-RADS total points: 8 ACR TI-RADS category: 5 NODES: No lymphadenopathy is seen in the tissue surrounding the thyroid gland. US/US thyroid IMPRESSION: 1. Bilateral thyroid nodules are seen, as above. The 7.7 cm in maximal diameter left thyroid lobe nodule meets ACR biopsy criteria and is amenable to ultrasound-guided biopsy, if clinically indicated and not already performed. 2. There is an asymmetric goiter. 3. There is heterogeneous thyroid echotexture or increased vascularity, which can be associated with thyroiditis. [facility] Medical History (Updated 07/03/24 @ 13:45 by Ivelisse Prescott MD) Hypothyroidism Thyroid cancer Thyroid neoplasm Vitamin D deficiency Multinodular thyroid Surgical History Hx of total thyroidectomy Hx of partial thyroidectomy History of surgery Hx of lithotripsy Family History Father No known health problems Mother No known health problems Social History Alcohol intake: current Alcohol intake frequency: does not drink Patient Tobacco Use Status: Never used Tobacco Physical Exam Vital Signs: Last Vital Signs Pulse 57 07/03/24 12:50 BP 130/76 07/03/24 12:50 Pulse Ox 95 07/03/24 12:50 Oxygen Delivery Method Room Air 07/03/24 12:50 BMI result Body Mass Index 30.5 Assessment & Plan Assessment & Plan (1) Thyroid cancer: Code(s): C73 - Malignant neoplasm of thyroid gland Category: Medical Plan: 44-year-old male here today for follow 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 Margins were negative, no lymph nodes were assessed. AJCC stage I, pT3 a. JOHN initial intermediate risk of recurrence. Is post completion thyroidectomy 11/06/2021 with benign pathology. Status post radioactive iodine treatment with I 131 96.7 mCi 02/19/2022. Currently JOHN excellent response to therapy. His non stimulated TG levels have been undetectable with negative TG antibodies., last done March 2024. His last thyroid ultrasound done at [facility] per patient in September [address] Jillian Horn was also unremarkable. We will obtain records of this. At this time has been a year since his last ultrasound almost, we will order repeat neck ultrasound. We will obtain repeat tumor markers prior to his next follow up in 8 weeks which would be about 6 months from his last set of TG levels. Given excellent response to therapy TSH goal of 0.5-2. Last TSH level from March 2024 was within goal at 0.53. Plan: -ordered ultrasound of the neck -ordered TSH, free T4, TG and TG antibody levels to be done a week prior to next visit in 8 weeks -follow up in 8 weeks to discuss results -continue levothyroxine 137 mcg daily (2) Hypothyroidism: Code(s): E03.9 - Hypothyroidism, unspecified Category: Medical Qualifiers: Hypothyroidism type: postoperative Qualified Code(s): E89.0 - Postprocedural hypothyroidism Plan: Given excellent response to therapy TSH goal of 0.5-2. Last TSH level from March 2024 was within goal at 0.53. Plan: -ordered TSH, free T4, TG and TG antibody levels to be done a week prior to next visit in 8 weeks -follow up in 8 weeks to discuss results -continue levothyroxine 137 mcg daily Plan I spent 30 minutes in reviewing the record, seeing the patient and documenting in the medical record. Orders: Orders 2 Thyroglobulin Tumor Marker Today C73 - Malignant neoplasm of thyroid gland Free T4 (Free Thyroxine) Today C73 - Malignant neoplasm of thyroid gland US soft tiss head and/or neck Today C73 - Malignant neoplasm of thyroid gland Thyroid Stimulating Hormone Today C73 - Malignant neoplasm of thyroid gland Thyroglobulin Today C73 - Malignant neoplasm of thyroid gland Thyroglobulin Antibodies Today C73 - Malignant neoplasm of thyroid gland Medications: Refilled 2 levothyroxine 137 mcg PO DAILY 90 tabs 4RF Patient Instructions: Do blood work a week before next appointment in 8 weeks Do neck ultrasound, someone will call you to schedule this Coding Level of Care Code Est Pt Level 4 (37084) Complex EM visit Add On G2211 Diagnoses Thyroid cancer C73 Postoperative hypothyroidism E89.0 Hypothyroidism type: postoperative Time Spent (min) 30
--- OUTSIDE RECORDS SUMMARY | 2024-07-03 13:09 | XMS_ITS | Encounter Summary ---
Author Organization [facility] Address [address] [place] [address] [address] [place] [address] Care Team Providers Care Tafe Teacher Name Role Phone Starla Martinez [facility] Primary Care Provider [phone] Encounter Details Date Type Department Care Team (Latest Contact Info) Description 08/22/2018 Abstract [facility] CONVERSIONS Dental, Provider, DDS Social History Tobacco Use Types Packs/Day Years Used Date Smoking Tobacco: Never Assessed Sex and Gender Information Value Date Recorded Sex Assigned at Male 03/29/2022 10:31 AM EDT Legal Sex Male 10:31 AM EDT Gender Identity Male 03/29/2022 10:31 AM EDT Sexual Orientation Straight 03/29/2022 10 :31 AM EDT documented as of this encounter Plan of Treatment Not on file documented as of this encounter Visit Diagnoses Not on filedocumented in this encounter Care Teams Tafe Teacher Relationship Specialty Start Date End Date OllieStarla FNP [address] [place] [address] PCP - General Family Medicine 01/21/22 documented as of this encounter
--- OUTSIDE RECORDS SUMMARY | 2024-07-03 13:09 | XMS_ITS | Encounter Summary ---
Author Organization [employer] Address [address] [place] [address] [address] [place] [address] Care Team Providers Care Spice Fumigator Name Role Phone Starla Martinez [facility] Primary Care Provider [phone] Reason for Visit * Reason Onset Date Comments Nurse Triage 06/08/2023 Encounter Details Date Type Department Care Team ([facility] st Contact Info) Description 06/08/2023 Telephone [facility]ICINE [address] [place], [place] [phone] Juan [facility] [address] [place] [address] Nurse Triage Social History Tobacco Use Types Packs/Day Years Used Date Smoking Tobacco: Never Smokeless Tobacco: Never Alcohol Use Standard Drinks/Week Comments Never 0 (1 standard drink = 0.6 oz pur e alcohol) Sex and Gender Information Value Date Recorded Sex Assigned at Male 03/29/2022 10:31 AM EDT Legal Sex Male 10:31 AM EDT Gender Identity Male 03/29/2022 10:31 AM EDT Sexual Orientation Straight 03/29/2022 10 :31 AM EDT documented as of this encounter Miscellaneous Notes * Telephone Encounter - Imani Mac RN - 06/08/2023 9:08 AM EST Call returned to Alexandr Jack for triage. No answer LVM to return call to [facility] triage line [phone]. Also left details with [facility] operating hours. * Telephone Encounter - Esther Horvath - 06/08/2023 8:45 AM EST Symptom: Abdominal Pain - Male Outcome: Schedule an urgent appointment (within 4 hours) or talk to a nurse or provider soon Reason: Getting worse The caller accepted this outcome Please contact pt at [phone] documented in this encounter Plan of Treatment Not on file documented as of this encounter Visit Diagnoses Not on filedocumented in this encounter Care Teams Spice Fumigator Relationship Specialty Start Date End Date Starla Martinez FNP [address] [place] [id number] PCP - General Family Medicine 01/21/22 documented as of this encounter
--- OUTSIDE RECORDS SUMMARY | 2024-07-03 13:10 | XMS_ITS | Encounter Summary ---
Author Organization [employer] Address [address] [place] [address] [address] [place] [address] Care Team Providers Care Funnel Setter Name Role Phone Starla Martinez [facility] Primary Care Provider [phone] Reason for Visit * Reason Onset Date Comments Nurse Triage 03/19/2024 Encounter Details Date Type Department Care Team ([facility] st Contact Info) Description 03/19/2024 Telephone [facility] [address] [place], [place] [phone] [facility] [address] [place] [address] Nurse Triage Social History Tobacco Use Types Packs/Day Years Used Date Smoking Tobacco: Never Smokeless Tobacco: Never Alcohol Use Standard Drinks/Week Comments Never 0 (1 standard drink = 0.6 oz pur e alcohol) Depression Answer Date Recorded Patient Health Questionnaire-9 Score 0 09/02/2023 Patient Health Questionnaire-9 Score 0 09/02/2023 Last PHQ-9: Questionnaire Data Not on file 0 09/02/2023 Housing Stability Answer Date Recorded What is your housing situation today? I have magdaleno brennan 08/24/[address] you li ve. Do you have problems with any of the following? None of the above 08/24/2023 Food Insecurity Answer Date Recorded Within the past 12 months, y ou worried that your food would run out before you got money to buy more: Never True 08/24/2023 Within the past 12 months,th e food you bought just didn't last and you didn't have enough money to get more: Never True Transportation Answer Date Recorded In the past 12 months, has l ack of transportation kept you from medical appts, meetings, work or from getting things needed for daily living? No 08/24/2023 Utilities Answer Date Recorded In the past 12 months, has t he electric, gas, oil or water company threatened to shut off services in your home? No 08/24/2023 Depression Answer Date Recorded Patient Health Questionnaire-2 Score 0 09/02/2023 Sex and Gender Information Value Date Recorded Sex Assigned at Male 03/29/2022 10:31 AM EDT Legal Sex Male 10:31 AM EDT Gender Identity Male 03/29/2022 10:31 AM EDT Sexual Orientation Straight 03/29/2022 10 :31 AM EDT documented as of this encounter Miscellaneous Notes * Telephone Encounter - Paola Gamez RN - 03/19/2024 12:14 PM EDT Triage call Pt reports a ringing-buzzing noise in right ear mainly at night. This sound doesn't occur in day time. Pt denies nasal congestion, ear congestion, wax build up. Pt is offered to come to [facility] today but, declined. ASK apt with PCP 1100am 03/28/24. Insurance is verified as active prior to booking. Multiple (2) protocols were used on this call. Disposition for Call: See in Office or Video Visit within 2 Weeks Protocol Used: Ear - Congestion (Adult) Protocol-Based Disposition: See in Office or Video Visit within 2 Weeks Positive Triage Question: * Ear congestion is a chronic symptom (recurrent or ongoing AND present > 4 weeks) * All higher-acuity triage questions were negative Protocol Used: No Protocol Available (Adult) Protocol-Based Disposition: See in Office or Video Visit within 2 Weeks Video visit not offered Positive Triage Question: * Nursing judgment * All higher-acuity triage questions were negative Care Advice Discussed: * Reasons To Call Back - New symptoms develop - You become worse * Telephone Encounter - Shantel Larios - 03/19/2024 11:38 AM EDT Symptom: Ear Ringing or Buzzing (No Pain) Outcome: Schedule an appointment to be seen within 3 days Reason: Caller denied all higher acuity questions The caller accepted this outcome. documented in this encounter Plan of Treatment Not on file documented as of this encounter Visit Diagnoses Not on filedocumented in this encounter Additional Health Concerns Assessment Noted Time PHQ-9 Depression Total Score: 0 09/02/19 24 3:51 PM EDT documented as of this encounter Care Teams Funnel Setter Relationship Specialty Start Date End Date Starla Martinez FNP [address] [place] [phone] PCP - General Family Medicine 01/21/22 documented as of this encounter
--- OUTSIDE RECORDS SUMMARY | 2024-07-03 13:10 | XMS_ITS | Clinical Summary ---
Author Organization [employer] Address [address] [facility] 7t [place] [address] Care Team Providers Care Sales Operations Analyst Name Role Phone Starla Martinez [facility] Primary Care Provider [phone] Allergies No known active allergies Medications levothyroxine (Synthroid, Levoxyl) 137 MCG tablet Take 1 tablet by mouth 1 (one) time each day. Active cetirizine (ZyrTEC) 10 MG tabletIndication s:Allergic rhinitis, unspecified seasonality, unspecified trigger Take 1 tablet (10 mg) by mouth in the morning. 30 tablet 5 4 Active fluticasone (Flonase) 50 MCG/ACT nasal sprayIndications :Chronic otitis media of right ear with effusion Administer 2 sprays into each nostril Once per day. Shake gently. Before first use, prime pump. After use, clean tip and replace cap. 16 g 2 4 03/28/20 25 Active triamcinolone (Kenalog) 0.025 % creamIndications :Dry skin dermatitis Apply topically 2 times daily. Mix entire tube with 16oz cera ve jar as instructed. 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 Margins were negative and no lymph nodes were assessed. pT3a. He then underwent a completion thyroidectomy 11/06/2021. Official surgical path was benign, per his report, but no official report has yet been received. He then underwent I131 ablation 02/19/2022 via thyroid hormone withdrawal. He received 96.7 mCi of I131. This revealed only physiologic uptake. Labs 02/08/2022 TSH 37.94 with TG 1.1 and TGAB <1. He remains on levothyroxine 150 mcg PO daily. TSH is at goal. Followed by [facility]. Adams Seasonal allergic rhinitis 09/06/2016 Overweight (BMI 25.0-29.9) 09/06/2016 Encounters Date Type Department Care Team Description 05/07/2024 2:00 PM EST Office Visit [facility] [address] [place] [phone] [facility] Healthcare maintenance (Primary Dx); Dry skin dermatitis; Encounter for screening for malignant neoplasm of colon; Malignant tumor of thyroid gland (CMS/HCC); Class 1 obesity due to excess calories without serious comorbidity with body mass index (BMI) of 30.0 to 30.9 in adult; Dietary counseling; Exercise counseling 05/07/2024 Travel 04/23/2024 Patient Outreach [facility] [address] [place] [address] [facility] Pre-visit Planning (SDOH screening completed on 08/24/2023) 04/02/2024 Orders Only GENERIC EXTERNAL DATA DEPARTMENT Provider, Generic External Data from Last 3 Months Family History Medical History Relation Name Comments Celiac disease Daughter Relation Name Status Comments Daughter Social History Tobacco Use Types Packs/Day Years Used Date Smoking Tobacco: Never Smokeless Tobacco: Never Tobacco Cessation:Counseling Given: Not Answered Alcohol Use Standard Drinks/Week Comments Never 0 (1 standard drink = 0.6 oz pur e alcohol) Depression Answer Date Recorded Patient Health Questionnaire-9 Score 0 05/07/2024 Patient Health Questionnaire-9 Score 0 05/07/2024 Last PHQ-9: Questionnaire Data Not on file 1 07/08/2023 Housing Stability Answer Date Recorded What is [...] Date Recorded Patient Health Questionnaire-2 Score 0 05/07/2024 Sex and Gender Information Value Date Recorded Sex Assigned at Male 03/29/2022 10:31 AM EDT Legal Sex Male 10:31 AM EDT Gender Identity Male 03/29/2022 10:31 AM EDT Sexual Orientation Straight 03/29/2022 10 :31 AM EDT Last Filed Vital Signs Vital Sign Reading Time Taken Comments Blood Pressure 119/77 05/07/2024 2:15 PM EST Pulse 71 05/07/2024 2:15 PM EST Temperature 36.4 ??C (97.5 ??F) 05/07/2024 2:15 PM ES T Respiratory Rate 18 05/07/2024 2:15 PM EST Oxygen Saturation 98% 05/07/2024 2:15 PM EST Inhaled Oxygen Concentration - - Weight 85.4 kg (188 lb 3.2 oz) 05/07/2024 2:15 P M EST Height 167.6 cm (5' 6 ) 05/07/2024 2:15 PM EST Body Mass Index 30.38 05/07/2024 2:15 PM EST Plan of Treatment Health Maintenance Due Date Last Done Comments CT Colonography 1979 Colonoscopy 1979 Colorectal Cancer Screening 1979 FIT DNA/Cologuard 1979 FIT 1979 FOBT 1979 Sigmoidoscopy 1979 Family Planning (PISQ) 1994 Hepatitis B Vaccines (1 of 3 - 19+ 3-dose series) 1998 DTaP/Tdap/Td Vaccines (1 - Tdap) 09/28/2016 09/27/2016, 09/27/2016 COVID-19 Vaccine (3 - 2024-2 5 season) 2024 09/18/2020, 08/27/2020 Influenza Vaccine (#1) 2024 SDOH Screening 08/23/2024 08/24/2023 Alcohol/Substance Use Screening 09/01/2024 09/02/2023 Depression Screening 05/07/2025 05/07/2024, 05/07/2024 Tobacco Screening 05/10/2025 05/10/2024 Lipid Panel 03/11/2027 03/11/2022, 01/29/2021, 11/12/2019 Zoster Vaccines (1 of 2) 2029 RSV Patients and Patients Aged 60 years or older (1 - 1-dose 75+ series) 2054 HIV Screening Completed 08/11/2021 Hepatitis C Screening Completed 08/11/2021 HIB Vaccines Aged Out No longer eligi ble based on patient's age to complete this topic HPV Vaccines Aged Out No longer eligi ble based on patient's age to complete this topic Hepatitis A Vaccines Aged Out No long er eligible based on patient's age to complete this topic IPV Vaccines Aged Out No longer eligi ble based on patient's age to complete this topic Meningococcal Vaccine Aged Out No armida philipp eligible based on patient's age to complete this topic Pneumococcal Vaccine: Pediatrics (0 to 5 Years) and At-Risk Patients (6 to 49) Years) Aged Out No longer eligible b ased on patient's age to complete this topic RSV under 20 months Aged Out No longe r eligible based on patient's age to complete this topic Rotavirus Vaccines Aged Out No longer eligible based on patient's age to complete this topic Procedures Procedure Name Priority Date/Time Associated Diagnosis Comments THYROGLOBULIN, TUMOR MARKER W/REFLEX Routine 04/02/2024 1:23 PM EST TSH Routine 04/02/2024 1:23 PM EST T4, FREE Routine 04/02/2024 1:23 PM EST LIPID PANEL, STANDARD Routine 03/11/2022 4:21 PM EDT ZZZ HISTORICAL HEPATITIS C AB W/REFL TO HCV RNA, QN, PCR Routine 08/11/2021 3:10 PM EDT HIV 1/2 ANTIGEN/ANTIBODY, FOURTH GENERATION W/RFL Routine 08/11/2021 3:10 PM EDT from Last 3 Months or Most Recently Relevant to Health Maintenance Results * Thyroblobulin, Tumor Marker w/Reflex (04/02/2024 1:23 PM EST) Thyroglobulin Antibody <1 <=1 IU/mL [facility] Comment:This Thyroglobulin a ntibody test was performedusing the Kanari Chemiluminescent method.Values obtained from different assay methods cannot beused interchangeably. Thyroglobulin antibody levels,regardless of value, should not be interpreted asabsolute evidence of the presence or absence ofdisease. Thyroglobulin, LC/MS/MS TNP [facility] Thyroglobulin Level <0.1 ng/mL [facility] Comment:Reference Range: Ath yrotic: <0.1 ng/mLReference range applies to differentiated thyroidcancer patients following treatment. The presence ofmeasurable thyroglobulin indicates the presence ofthyroglobulin-producing thyroid tissue. Clinicalcorrelation is advised.This Thyroglobulin test was performed using theKanari Chemiluminescent method. Valuesobtained from different assay methods cannot beused interchangeably. Thyroglobulin levels, regardlessof value, should not be interpreted as absoluteevidence of the presence or absence of disease.THIS TEST WAS PERFORMED AT:[employer] [place] [address]NCYENGVGREG MOCTEZUMA MD,PHD 04/02/2024 1:23 PM EST 04/02/2024 1:23 PM EST us Generic External Data Provider LAB BLOOD ORDERAB LES Final Result [facility] [address] [place] [phone] * TSH (04/02/2024 1:23 PM EST) Thyroid Stimulating Hormone 0.53 0.32 - 4.0 uIU/mL [facility] Comment:TSH 3rd Generation ( [facility]) 04/02/2024 1:23 PM EST 04/02/2024 1:23 PM EST Generic External Data Provider LAB BLOOD ORDERAB LES Final Result Performing Organization Address [facility]/ZIP Co de Phone Number [facility] [address] [place] [phone] * T4, Free (04/02/2024 1:23 PM EST) Pathologist [facility] Free T4 (Free Thyroxine) 1.41 0.71 - 1.85 ng/dL [facility] 04/02/2024 1:23 PM EST 04/02/2024 1:23 PM EST Generic External Data Provider LAB BLOOD ORDERAB LES Final Result Performing Organization Address [facility] de Phone Number [facility] [address] [place] [phone] * (ABNORMAL) LIPID PANEL, STANDARD (03/11/2022 4:21 PM EDT) [facility] Chol/HDLC Ratio 4.6 <5.0 (calc) [facility] Cholesterol, Total 193 <200 mg/dL [facility] HDL Cholesterol 42 > OR = 40 mg/dL [facility] LDL Cholesterol 116(H) mg/dL (calc) [facility] Comment: Reference range: <100 ?? Desirable range <100 mg/dL for primary prevention; ?? <70 mg/dL for patients with CHD or diabetic patients ?? with > or = 2 CHD risk factors. ?? LDL-C is now calculated using the Misty ?? calculation, which is a validated novel method providing ?? better accuracy than the Friedewald equation in the ?? estimation of LDL-C. ?? Evin HAYNES et al. TOSIN. 2013;310(19): 6761-4452 ?? (http://education.Imago Scientific Instruments/faq/VVD291) Non-HDL Cholesterol 151(H) <130 mg/dL (calc) [facility] Comment: For patients with diabetes plus 1 major ASCVD risk ?? factor, treating to a non-HDL-C goal of <100 mg/dL ?? (LDL-C of <70 mg/dL) is considered a therapeutic ?? option. Triglycerides 228(H) <150 mg/dL [facility] Comment: ?? If a non-fasting specimen was collected, consider repeat triglyceride testing on a fasting specimen if clinically indicated. ?? Sara et al. J. of Clin. Lipidol. 2015;9:129-169. ?? 03/11/2022 4:21 PM EDT [facility] HEALTH CARE LEGAL ASSISTANT LAB BLOOD ORDERABLES Final Re sult Performing Organization Address [facility]/ZIP Co de Phone Number [facility] * HEPATITIS C AB W/REFL TO HCV RNA, QN, PCR (08/11/2021 3:10 PM EDT) HEPATITIS C ANTIBODY NON-REACT [facility] NON-REACT [facility] INDEX 0.01 <1.00 [facility] Comment: ?? HCV antibody was non-reactive. There is no laboratory ?? evidence of HCV infection. ?? In most cases, no further action is required. However, if recent HCV exposure is suspected, a test for HCV RNA (test code 76441) is suggested. ?? For additional information please refer to http://education.Fleecs.Herrenschmiede/faq/XRJ37r6 (This link is being provided for informational/ educational purposes only.) ?? 08/11/2021 3:10 PM EDT Tamiko Cox FLOOR RUNNER HISTORICAL/NON ORDERABLE LABS F inal Result Performing Organization Address City/[facility]/ZIP Co de Phone Number [facility] [address] * HIV 1/2 ANTIGEN/ANTIBODY,FOURTH GENERATION W/RFL (08/11/2021 3:10 PM EDT) HIV-1/2 ANTIGEN AND ANTIBODIES, 4TH GENERATION W/ REFLEX NON-REACT [facility] NON-REACT [facility] Comment: HIV-1 antigen and HIV-1/HIV-2 antibodies were not detected. There is no laboratory evidence of HIV infection. ?? PLEASE NOTE: This information has been disclosed to you from records whose confidentiality may be protected by state law. ??If your state requires such protection, then the state law prohibits you from making any further disclosure of the information without the specific written consent of the person to whom it pertains, or as otherwise permitted by law. A general authorization for the release of medical or other information is NOT sufficient for this purpose. ? For additional information please refer to http://education.Abeona Therapeutics/faq/CHO530 (This link is being provided for informational/ educational purposes only.) ? The performance of this assay has not been clinically validated in patients less than 2 years old. ?? 08/11/2021 3:10 PM EDT us Tamiko Cox FLOOR RUNNER LAB BLOOD ORDERABLES Final Resu lt [facility] [address] from Last 3 Months or Most Recently Relevant to Health Maintenance Insurance [facility] [place] [id number] * Guarantor: Alexandr Jack Account Type Relation to Patient Date of Phone Billing Address Personal/Family Self [facility] [employer] [address] Care Teams Sales Operations Analyst Relationship Specialty Start Date End Date SmithtonStarla FNP [address] [place] [phone] PCP - General Family Medicine 01/21/22
== END 2024-07-03 13:41 | disposition home or self-care (01) ==
PROVIDERS: PCP Registered Nurse; Visit Provider Student in an Organized Health Care Education/Training Program
DX: C73 Malignant neoplasm of thyroid gland (principal); E89.0 Postprocedural hypothyroidism
CPT/HCPCS: 99214; G2211

== ENCOUNTER → 2024-07-03 12:42 | Outpatient (BNVA) | payer OTHER, SELFPAY | PROVIDERS: PCP Registered Nurse; Visit Provider Student in an Organized Health Care Education/Training Program | DX: E89.0 Postprocedural hypothyroidism (principal); C73 Malignant neoplasm of thyroid gland | CPT/HCPCS: 99212 ==

== ENCOUNTER 2024-07-03 13:53 | Outpatient (REF) | payer OTHER, SELFPAY ==
--- OUTSIDE RECORDS SUMMARY | 2024-07-03 14:03 | XMS_ITS | Encounter Summary ---
Author Organization [employer] Address [address] [place] [address] 7t [place] [address] Care Team Providers Care Childcare Teacher Name Role Phone Starla Martinez [facility] Primary Care Provider [phone] Reason for Visit * Reason Onset Date Comments Nurse Triage 06/08/2023 Encounter Details Date Type Department Care Team ([facility] st Contact Info) Description 06/08/2023 Telephone [facility] [address] [place], [place] [phone] [facility] [address] [place] [address] Nurse Triage Social History Tobacco Use Types [...] No answer LVM to return call to [facility] triage line [phone]. Also left details with [facility] operating hours. * Telephone Encounter - Esther Horvath - 06/08/2023 8:45 AM EST Symptom: Abdominal Pain - Male Outcome: Schedule an urgent appointment (within 4 hours) or talk to a nurse or provider soon Reason: Getting worse The caller accepted this outcome Please contact pt at [phone] documented in this encounter Plan of Treatment Not on file documented as of this encounter Visit Diagnoses Not on filedocumented in this encounter Care Teams Childcare Teacher Relationship Specialty Start Date End Date Starla Martinez FNP [address] [place] [phone] PCP - General Family Medicine 01/21/22 documented as of this encounter
--- OUTSIDE RECORDS SUMMARY | 2024-07-03 14:03 | XMS_ITS | Encounter Summary ---
Author Organization [employer] [facility] Address [address] [place] [address] 7 [place] [address] Care Team Providers Care Seasoning Sprayer Name Role Phone Starla Martinez [facility] Primary Care Provider [phone] Encounter Details Date Type Department Care Team (Latest Contact Info) Description 08/22/2018 Abstract [facility] CONVERSIONS Dental, Provider, DDS Social History [...] on filedocumented in this encounter Care Teams Seasoning Sprayer Relationship Specialty Start Date End Date MelvinStarla FNP [address] [place] [address] PCP - General Family Medicine 01/21/22 documented as of this encounter
--- OUTSIDE RECORDS SUMMARY | 2024-07-03 14:03 | XMS_ITS | Clinical Summary ---
Author Organization [employer] Address [address] [facility] 7t [place] [address] Care Team Providers Care Can Filling And Closing Machine Tender Name Role Phone Starla Martinez [facility] Primary Care Provider [phone] Allergies No known active allergies Medications levothyroxine [...] daily. TSH is at goal. [place] [facility] Adams Seasonal allergic rhinitis 09/06/2016 Overweight (BMI 25.0-29.9) 09/06/2016 Encounters Date Type Department Care Team Description 05/07/2024 2:00 PM EST Office Visit [facility] [address] [place] [phone] [facility] Healthcare maintenance (Primary Dx); Dry skin dermatitis; Encounter for screening for malignant neoplasm of colon; Malignant tumor of thyroid gland (CMS/HCC); Class 1 obesity due to excess calories without serious comorbidity with body mass index (BMI) of 30.0 to 30.9 in adult; Dietary counseling; Exercise counseling 05/07/2024 Travel 04/23/2024 Patient Outreach [facility] [address] [place] [address] [facility] Pre-visit Planning (SDOH screening completed on 08/24/2023) [...] PM EST) Thyroglobulin Antibody <1 <=1 IU/mL [facility] Comment:This Thyroglobulin a ntibody test was performedusing the [employer] Chemiluminescent method.Values obtained from different assay methods cannot beused interchangeably. Thyroglobulin antibody levels,regardless of value, should not be interpreted asabsolute evidence of the presence or absence ofdisease. Thyroglobulin, LC/MS/MS TNP [facility] Thyroglobulin Level <0.1 ng/mL [facility] Comment:Reference Range: Ath yrotic: <0.1 ng/mLReference range applies to differentiated thyroidcancer patients following treatment. The presence ofmeasurable thyroglobulin indicates the presence ofthyroglobulin-producing thyroid tissue. Clinicalcorrelation is advised.This Thyroglobulin test was performed using theCalStar Products Chemiluminescent method. Valuesobtained from different assay methods cannot beused interchangeably. Thyroglobulin levels, regardlessof value, should not be interpreted as absoluteevidence of the presence or absence of disease.THIS TEST WAS PERFORMED AT:[employer] [place] [address]TSHIAWRGREG MOCTEZUMA MD,PHD 04/02/2024 1:23 PM EST 04/02/2024 1:23 PM EST us Generic External Data Provider LAB BLOOD ORDERAB LES Final Result [facility] [address] [place] [phone] * TSH (04/02/2024 1:23 PM EST) Thyroid Stimulating Hormone 0.53 0.32 - 4.0 uIU/mL [facility] Comment:TSH 3rd Generation ( [facility]) 04/02/2024 1:23 PM EST 04/02/2024 1:23 PM EST Generic External Data Provider LAB BLOOD ORDERAB LES Final Result Performing Organization Address [facility]/ZIP Co de Phone Number [facility] [address] [place] [phone] * T4, Free (04/02/2024 1:23 PM EST) Pathologist [facility] Free T4 (Free Thyroxine) 1.41 0.71 - 1.85 ng/dL [facility] 04/02/2024 1:23 PM EST 04/02/2024 1:23 PM EST Generic External Data Provider LAB BLOOD ORDERAB LES Final Result Performing Organization Address [facility] de Phone Number [facility] [address] [place] [phone] * (ABNORMAL) LIPID PANEL, STANDARD (03/11/2022 4:21 PM EDT) [facility] Chol/HDLC Ratio 4.6 <5.0 (calc) CONVERTED [...] ?? Evin HAYNES et al. TOSIN. 2013;310(19): 4383-6052 ?? (http://education.RoboCent/faq/VAY385) Non-HDL Cholesterol 151(H) <130 mg/dL (calc) CONVERTED [...] a fasting specimen if clinically indicated. ?? Sraa et al. J. of Clin. Lipidol. 2015;9:129-169. ?? 03/11/2022 4:21 PM EDT [facility] MANAGER ESTATE LAB BLOOD ORDERABLES Final Re sult Performing Organization Address [facility]/ZIP Co de Phone Number [facility] [...] a test for HCV RNA (test code 89604) is suggested. ?? For additional information please refer to http://education.Postling.[facility] Diagn[facility]/faq/YWW56i4 (This link is being provided for informational/ educational purposes only.) ?? 08/11/2021 3:10 PM EDT Tamiko Cox LEAN MANUFACTURING LEADER HISTORICAL/NON ORDERABLE LABS F inal Result Performing Organization Address City/[facility]/ZIP Co de Phone Number [facility] [address] * HIV 1/2 ANTIGEN/ANTIBODY,FOURTH GENERATION W/RFL (08/11/2021 3:10 PM EDT) HIV-1/2 ANTIGEN AND ANTIBODIES, 4TH GENERATION W/ REFLEX NON-REACT [facility] NON-REACT [facility] Comment: HIV-1 antigen and HIV-1/HIV-2 [...] ? For additional information please refer to http://education.Roundbox/faq/NFD507 (This link is being provided for informational/ educational purposes only.) ? The performance of this assay has not been clinically validated in patients less than 2 years old. ?? 08/11/2021 3:10 PM EDT us Tamiko Cox LEAN MANUFACTURING LEADER LAB BLOOD ORDERABLES Final Resu lt [facility] [address] from Last 3 Months or Most Recently Relevant to Health Maintenance Insurance [facility] [place] [id number] * Guarantor: Alexandr Jack Account Type Relation to Patient Date of Phone Billing Address Personal/Family Self [facility] [place] [address] Care Teams Can Filling And Closing Machine Tender Relationship Specialty Start Date End Date BostonStarla FNP [address] [place] [phone] PCP - General Family Medicine 01/21/22
--- OUTSIDE RECORDS SUMMARY | 2024-07-03 14:04 | XMS_ITS | Encounter Summary ---
Author Organization [employer] Address [address] [place] [address] 7t [place] [address] Care Team Providers Care Superintendent Quarry Name Role Phone Starla Martinez [facility] Primary Care Provider [phone] Reason for Visit * Reason Onset Date Comments Nurse Triage 03/19/2024 Encounter Details Date Type Department Care Team ([facility] st Contact Info) Description 03/19/2024 Telephone [facility] MEDICINE [address] [place], [place] [phone] [facility] [address] [place] [address] Nurse Triage Social History Tobacco Use Types [...] up. Pt is offered to come to [facility] today but, declined. ASK apt with PCP [...] documented as of this encounter Care Teams Superintendent Quarry Relationship Specialty Start Date End Date Starla Martinez FNP [address] [place] [phone] PCP - General Family Medicine 01/21/22 documented as of this encounter
[2024-07-03 17:07] LABS: Free T4 (Free Thyroxine) 1.32 ng/dL (0.71-1.85); Thyroid Stimulating Hormone 1.29 uIU/mL (0.32-4.0)
[2024-07-04 22:23] LABS: Thyroglobulin <0.1 ng/mL; Thyroglobulin Antibodies <1 IU/mL (< or = 1)
[2024-07-06 21:18] LABS: Thyroglobulin Antibody <1 IU/mL (<=1); Thyroglobulin Level 3.7 ng/mL
== END 2024-07-03 13:54 | disposition home or self-care (01) ==
LOC: HO.HHCL 13:53
PROVIDERS: Visit Provider Student in an Organized Health Care Education/Training Program
DX: C73 Malignant neoplasm of thyroid gland (principal)
CPT/HCPCS: 36415; 84432; 84439; 84443; 86800

== ENCOUNTER 2024-07-19 14:21 | Outpatient (REF) | payer OTHER, SELFPAY ==
--- NOTE | ~2024-07-19 | US_ITS ---
CLINICAL HISTORY: C73 - Malignant neoplasm of thyroid gland Ultrasound soft tissue neck Comparison: None Findings: There are multiple lymph nodes within the neck, further described below. All lymph nodes are normal morphology and the majority demonstrate fatty joni. Right level 1B lymph node 1.2 x 0.3 x 1.0 cm not previously documented. Right level 3 lymph node 0.8 x 0.2 x 0.7 cm (previously 0.8 x 0.3 x 0.5 cm). Left level 1B lymph node 0.8 x 0.4 x 0.6 cm not previously documented. Left level 2 lymph node 0.9 x 0.4 x 0.6 cm (previously 0.9 x 0.4 x 0.9 cm). Left level 2 lymph node 1.1 x 0.3 x 0.5 cm not previously documented. Left level 3 lymph node 0.8 x 0.3 x 0.5 cm (previously 1.0 x 0.4 x 0.7 cm). Left level 5A lymph node 1.3 x 0.4 x 0.8 cm not previously documented. Impression: 1. Multiple small normal morphology lymph nodes within the neck, most likely inflammatory This document has been electronically signed by: Leigha Larson MD on 07/20/2024 16:28:52
--- OUTSIDE RECORDS SUMMARY | 2024-07-19 15:36 | XMS_ITS | Encounter Summary ---
Author Organization [employer] Address [address] [place] [address] 7t [place] [address] Care Team Providers Care Energy Projects Lead Name Role Phone Starla Martinez [facility] Primary Care Provider [phone] Reason for Visit * Reason Onset Date Comments Nurse Triage 06/08/2023 Encounter Details Date Type Department Care Team ([facility] st Contact Info) Description 06/08/[address] [facility] MEDICINE [address] [place], [place] [phone] [facility] [address] [place] [address] Nurse Triage Social History Tobacco Use Types [...] No answer LVM to return call to [facility] triage line [phone]. Also left details with [facility] operating hours. * Telephone Encounter - Esther Horvath - 06/08/2023 8:45 AM EST Symptom: Abdominal Pain - Male Outcome: Schedule an urgent appointment (within 4 hours) or talk to a nurse or provider soon Reason: Getting worse The caller accepted this outcome Please contact pt at [phone] documented in this encounter Plan of Treatment Not on file documented as of this encounter Visit Diagnoses Not on filedocumented in this encounter Care Teams Energy Projects Lead Relationship Specialty Start Date End Date Starla Martinez FNP [address] [place] [phone] PCP - General Family Medicine 01/21/22 documented as of this encounter
--- OUTSIDE RECORDS SUMMARY | 2024-07-19 15:36 | XMS_ITS | Encounter Summary ---
Author Organization [employer] Address [address] [place] [address] 7t [place] [address] Care Team Providers Care Crossword Puzzle Maker Name Role Phone Starla Martinez [facility] Primary Care Provider [phone] Reason for Visit * Reason Onset Date Comments Nurse Triage 03/19/2024 Encounter Details Date Type Department Care Team ([facility] st Contact Info) Description 03/19/2024 Telephone [facility] MEDICINE [address] [place], [place] [phone] [facility] [address] [place] [address] Nurse Triage Social History Tobacco Use Types [...] up. Pt is offered to come to [facility] today but, declined. ASK apt with PCP [...] documented as of this encounter Care Teams Crossword Puzzle Maker Relationship Specialty Start Date End Date Starla Martinez FNP [address] [place] [address] PCP - General Family Medicine 01/21/22 documented as of this encounter
--- OUTSIDE RECORDS SUMMARY | 2024-07-19 15:36 | XMS_ITS | Clinical Summary ---
Author Organization [employer] Address [address] [facility] 7t [place] [address] Care Team Providers Care Loss Prevention Operations Manager Name Role Phone Starla Martinez [facility] Primary Care Provider [phone] Allergies No known active allergies Medications levothyroxine [...] daily. TSH is at goal. [place] [facility] [place] Seasonal allergic rhinitis 09/06/2016 Overweight (BMI 25.0-29.9) 09/06/2016 Encounters Date Type Department Care Team Description 05/07/2024 2:00 PM EST Office Visit [facility] MED[facility] [address] [place] [address] [facility] Healthcare maintenance (Primary Dx); Dry skin dermatitis; Encounter for screening for malignant neoplasm of colon; Malignant tumor of thyroid gland (CMS/HCC); Class 1 obesity due to excess calories without serious comorbidity with body mass index (BMI) of 30.0 to 30.9 in adult; Dietary counseling; Exercise counseling 05/07/2024 Travel 04/23/2024 Patient Outreach [facility] [address] [place] [address] [facility] Pre-visit Planning (SDOH screening completed on 08/24/2023) from Last 3 Months Family History Medical [...] your housing situation today? I have magdaleno anu 08/24/[address] you li [...] 09/28/2016 09/27/2016, 09/27/2016 COVID-19 Vaccine (3 - 2023-2 5 season) 2024 09/18/2020, 08/27/2020 Influenza Vaccine [...] Procedure Name Priority Date/Time Associated Diagnosis Comments LIPID PANEL, STANDARD Routine 03/11/2022 4:21 PM EDT ZZZ HISTORICAL HEPATITIS C AB W/REFL TO HCV RNA, QN, PCR Routine 08/11/2021 3:10 PM EDT HIV 1/2 ANTIGEN/ANTIBODY, FOURTH GENERATION W/RFL Routine 08/11/2021 3:10 PM EDT from Last 3 Months or Most Recently Relevant to Health Maintenance Results * (ABNORMAL) LIPID PANEL, STANDARD (03/11/2022 4:21 PM EDT) Chol/HDLC Ratio 4.6 <5.0 (calc) CONVERTED LEGACY [...] ?? Evin HAYNES et al. TOSIN. 2013;310(19): 3504-8706 ?? (http://[employer].Equinext/faq/XCG367) Non-HDL Cholesterol 151(H) <130 mg/dL (calc) CONVERTED [...] Lipidol. 2015;9:129-169. ?? 03/11/2022 4:21 PM EDT [facility] LAB BLOOD ORDERABLES Final Re sult CONVERTED LEGACY LABS * HEPATITIS C AB W/REFL TO HCV RNA, QN, PCR (08/11/2021 3:10 PM EDT) Pathologist [facility] HEPATITIS C ANTIBODY NON-REACT SREEKANTH NON-REACT SREEKANTH [facility] INDEX 0.01 <1.00 [facility] Comment: ?? HCV antibody was non-reactive. There is no laboratory ?? evidence of HCV infection. ?? In most cases, no further action is required. However, if recent HCV exposure is suspected, a test for HCV RNA (test code 71266) is suggested. ?? For additional information please refer to http://[employer].Wizard[employer] Nation/faq/FLL58k0 (This link is being provided for informational/ educational purposes only.) ?? 08/11/2021 3:10 PM EDT Tamiko Cox NP HISTORICAL/NON ORDERABLE LABS F inal Result Performing Organization Address [facility] Phone Number [facility] [address] * HIV 1/2 ANTIGEN/ANTIBODY,FOURTH GENERATION W/RFL (08/11/2021 3:10 PM EDT) Pathologist [facility] HIV-1/2 ANTIGEN AND ANTIBODIES, 4TH GENERATION W/ REFLEX NON-REACT SREEKANTH NON-REACT SREEKANTH [facility] Comment: HIV-1 antigen and HIV-1/HIV-2 [...] ? For additional information please refer to http://[employer].Wizard[employer] Nation/faq/HBX409 (This link is being provided for informational/ educational purposes only.) ? The performance of this assay has not been clinically validated in patients less than 2 years old. ?? 08/11/2021 3:10 PM EDT Tamiko Cox NP LAB BLOOD ORDERABLES Final Resu lt Performing Organization Address [facility] Phone Number [facility] [address] from Last 3 Months or Most Recently Relevant to Health Maintenance Insurance [place] [phone] Care Teams Loss Prevention Operations Manager Relationship Specialty Start Date End Date Starla Martinez FNP [address] [place] [address] PCP - General Family Medicine 01/21/22
--- OUTSIDE RECORDS SUMMARY | 2024-07-19 15:36 | XMS_ITS | Encounter Summary ---
Author Organization [employer] [facility] Address [address] [place] [address] 7 [place] [address] Care Team Providers Care Health Promotion Manager Name Role Phone Starla Martinez [facility] Primary Care Provider Encounter Details Date Type Department Care Team (Latest Contact Info) Description 08/22/2018 Abstract [facility] CONVERSIONS Dental, Provider, DDS Social History [...] on filedocumented in this encounter Care Teams Health Promotion Manager Relationship Specialty Start Date End Date JuanStarla FNP [address] [place] [address] PCP - General Family Medicine 01/21/22 documented as of this encounter
== END 2024-07-19 14:22 | disposition home or self-care (01) ==
LOC: HO.US 14:21
PROVIDERS: PCP Registered Nurse; Visit Provider Student in an Organized Health Care Education/Training Program
DX: C73 Malignant neoplasm of thyroid gland (principal)
CPT/HCPCS: 76536

== ENCOUNTER → 2024-07-19 14:23 | Outpatient (BNV) | payer OTHER, SELFPAY | PROVIDERS: PCP Registered Nurse; Visit Provider Radiology Diagnostic Radiology | DX: R59.0 Localized enlarged lymph nodes (principal) | CPT/HCPCS: 76536 ==

== ENCOUNTER 2024-08-10 11:42 | Outpatient (REF) | payer OTHER, SELFPAY ==
--- OUTSIDE RECORDS SUMMARY | 2024-08-10 13:33 | XMS_ITS | Encounter Summary ---
Author Organization [employer] Address [address] [facility] [address] 7t [place] [address] Care Team Providers Care Dark Room Attendant Name Role Phone Juan [facility] Primary Care Provider [phone] Reason for Visit * Reason Onset Date Comments Labs Only 08/06/2024 Encounter Details Date Type Department Care Team ([facility] Contact Info) Description 08/06/2024 Telephone [facility] MEDICINE [address] [place], [place] [phone] [facility] [address] [place], [place] [phone] Labs Only Social History Tobacco Use Types Packs/Day Years [...] encounter Miscellaneous Notes * Telephone Encounter - Alma Oleary RN - 08/06/2024 11:07 AM EDT TC returned to pt.'s daughter, currently with pt. And received verbal permission to speal to daughter. Daughter reports pt. Had bloodwork done in Jun at [facility] lab, meditech checked and labs ordered [facility]yroid by [facility]. Advised daughter of this, daughter reports labs from Apr. Ordered by PCP (CMP,lipid panel) should have also been done but were not. Lab orders faxed to lab and she will have pt. Return. Otherwise, daughter reports pt. Has been experiencing L shoulder pain x 2-3 months especially when lifting or using arm, has tried APAP without positive effect. Daughter agrees to appt. With PCP for 08/08/24 at 10:15am to discuss. * Telephone Encounter - Graciela Kim - 08/06/2024 10:12 AM EDT Tc from pt's daughter stating pt performed labs in June. Furniture Inspector doesn't see results in pt's chart. documented in this encounter Plan of Treatment Not on file documented as of this encounter Visit Diagnoses Not on filedocumented in this encounter Additional Health Concerns Assessment Noted Time PHQ-9 Depression Total Score: 0 05/07/20 24 2:26 PM EST documented as of this encounter Care Teams Dark Room Attendant Relationship Specialty Start Date End Date Starla Martinez FNP [address] [place] [address] PCP - General Family Medicine 01/21/22 documented as of this encounter
--- OUTSIDE RECORDS SUMMARY | 2024-08-10 13:33 | XMS_ITS | Encounter Summary ---
Author Organization [employer] Address [address] [facility] [facility] [address]t [place] [address] Care Team Providers Care Shipfitter Apprentice Name Role Phone Starla Martinez [employer] Primary Care Provider [phone] Encounter Details Date Type Department Care Team (Late st Contact Info) Description 07/19/2024 Orders Only [facility] External Provider, [facility] Social History Tobacco Use Types Packs/Day Years [...] on file documented as of this encounter Procedures Procedure Name Priority Date/Time Associated Diagnosis Comments US HEAD NECK SOFT TISSUE Routine 07/20/2024 4:28 PM EST documented in this encounter Results * US Head Neck Soft Tissue (07/20/2024 4:28 PM EST) Anatomical Region Laterality Modality Head, Neck Ultrasound 07/20/2024 4:28 PM EST Narrative 07/20/2024 4:30 PM EST ? [facility] ?[address] ?[place] [address] ? Ultrasound Report ? Signed ? Patient: Oflu,Alexandr ?MR#: [id number] ? : 1980 ?Acct:[id number] ? Age/Sex: 44 / M ?ADM Date: 07/19/24 ? Loc: HO.US ? Attending Dr: Ivelisse Prescott MD ? Ordering Physician: Ivelisse Prescott MD ?? Date of Service: 07/19/24 ?? Procedure(s): US soft tiss head and/or neck ?? Accession Number(s): [id number] ? cc: Ivelisse Prescott MD; Starla Martinez ? CLINICAL HISTORY: C73 - Malignant neoplasm of thyroid gland ? Ultrasound soft tissue neck ? Comparison: None ? Findings: ?? There are multiple lymph nodes within the neck, further described below. ?? All lymph nodes are normal morphology and the majority demonstrate fatty ?? joni. ?? Right level 1B lymph node 1.2 x 0.3 x 1.0 cm not previously documented. ?? Right level 3 lymph node 0.8 x 0.2 x 0.7 cm (previously 0.8 x 0.3 x 0.5 ?? cm). ?? Left level 1B lymph node 0.8 x 0.4 x 0.6 cm not previously documented. ?? Left level 2 lymph node 0.9 x 0.4 x 0.6 cm (previously 0.9 x 0.4 x 0.9 ?? cm). ?? Left level 2 lymph node 1.1 x 0.3 x 0.5 cm not previously documented. ?? Left level 3 lymph node 0.8 x 0.3 x 0.5 cm (previously 1.0 x 0.4 x 0.7 ?? cm). ?? Left level 5A lymph node 1.3 x 0.4 x 0.8 cm not previously documented. ? Impression: ?? 1. Multiple small normal morphology lymph nodes within the neck, most ?? likely inflammatory ? This document has been electronically signed by: Leigha Larson MD on ?? 07/20/2024 16:28:52 ? Dictated By: ?Leigha Larson MD ? Signed By: ?<Electronically signed by Leigha Larson MD in OV> ? 07/20/24 1630 ? DD/ 1628 ? TD/TT: 07/20/24 1628 ? Train Engineer: ? Procedure Note Donbelkis, Image - 07/20/2024 [place] [id number] Ultrasound Report Signed Patient: Xochilt Jack#: [id number] : 1980Acct:[id number] Age/Sex: 44 / MADM Date: 07/19/24 Loc: HO.US Attending Dr: Ivelisse Prescott MD Ordering Physician: Ivelisse Prescott MD Date of Service: 07/19/24 Procedure(s): US soft tiss head and/or neck Accession Number(s): [id number] cc: Ivelisse Prescott MD; [facility] CLINICAL HISTORY: C73 - Malignant neoplasm of thyroid gland Ultrasound soft tissue neck Comparison: None Findings: There are multiple lymph nodes within the neck, further described below. All lymph nodes are normal morphology and the majority demonstrate fatty joni. Right level 1B lymph node 1.2 x 0.3 x 1.0 cm not previously documented. Right level 3 lymph node 0.8 x 0.2 x 0.7 cm (previously 0.8 x 0.3 x 0.5 cm). Left level 1B lymph node 0.8 x 0.4 x 0.6 cm not previously documented. Left level 2 lymph node 0.9 x 0.4 x 0.6 cm (previously 0.9 x 0.4 x 0.9 cm). Left level 2 lymph node 1.1 x 0.3 x 0.5 cm not previously documented. Left level 3 lymph node 0.8 x 0.3 x 0.5 cm (previously 1.0 x 0.4 x 0.7 cm). Left level 5A lymph node 1.3 x 0.4 x 0.8 cm not previously documented. Impression: 1. Multiple small normal morphology lymph nodes within the neck, most likely inflammatory This document has been electronically signed by: Leigha Larson MD on 07/20/2024 16:28:52 Dictated By: Leigha Larson MD Signed By: <Electronically signed by Leigha Larson MD in OV> 07/20/24 1630 DD/ 1628 TD/TT: 07/20/24 1628 Train Engineer: [facility] External Provider IMG US PROCEDURES Final Result documented in this encounter Visit Diagnoses Not on filedocumented in this encounter Additional Health Concerns Assessment Noted Time PHQ-9 Depression Total Score: 0 05/07/20 24 2:26 PM EST documented as of this encounter Care Teams Shipfitter Apprentice Relationship Specialty Start Date End Date Starla Martinez FNP [address] [place] [address] PCP - General Family Medicine 01/21/22 documented as of this encounter
--- OUTSIDE RECORDS SUMMARY | 2024-08-10 13:33 | XMS_ITS | Encounter Summary ---
Author Organization [employer] Address [address] [facility] [address] 7t [place] [address] Care Team Providers Care Triple Valve Mechanic Name Role Phone Starla Martinez [facility] Primary Care Provider [phone] Encounter Details Date Type Department Care Team (Late st Contact Info) Description 08/10/2024 11:00 AM EDT Office Visit [facility] MEDICINE 230 [place], [place] [phone] [facility] 230 [place], [place] [phone] Dry skin dermatitis Social History Tobacco Use Types Packs/Day Years Used Date Smoking Tobacco: Former Cigarettes Passive Smoke Exposure: Past Smokeless Tobacco: Never Tobacco Cessation:Counseling Given: Not [...] AM EDT documented as of this encounter Last Filed Vital Signs Vital Sign Reading Time Taken Comments Blood Pressure 112/80 08/10/2024 11:15 AM EDT Pulse 66 08/10/2024 11:15 AM EDT Temperature 36.7 ??C (98 ??F) 08/10/2024 11:15 AM EDT Respiratory Rate 17 08/10/2024 11:15 AM EDT Oxygen Saturation - - Inhaled Oxygen Concentration - - Weight 85 kg (187 lb 8 oz) 08/10/2024 11:15 AM E DT Height 170.2 cm (5' 7 ) 08/10/2024 11:15 AM EDT Body Mass Index 29.37 08/10/2024 11:15 AM EDT documented in this encounter Plan of Treatment Not on file documented as of this encounter Visit Diagnoses Diagnosis Dry skin dermatitis Contact dermatitis and other eczema due to other specified agent documented in this encounter Additional Health Concerns Assessment Noted Time PHQ-9 Depression Total Score: 0 05/07/20 24 2:26 PM EST documented as of this encounter Care Teams Triple Valve Mechanic Relationship Specialty Start Date End Date Starla Martinez FNP [address] [place] [address] PCP - General Family Medicine 01/21/22 documented as of this encounter
--- OUTSIDE RECORDS SUMMARY | 2024-08-10 13:33 | XMS_ITS | Encounter Summary ---
Author Organization [employer] Address [address] [facility] 7t [place] [address] Care Team Providers Care Media Production Support Manager Name Role Phone Starla [facility] Primary Care Provider [phone] Reason for Visit * Reason Onset Date Comments Nurse Triage 06/08/2023 Encounter Details Date Type Department Care Team ([facility] st Contact Info) Description 06/08/2023 Telephone [facility] MEDICINE [address] [place], [place] [phone] [facility] 230 [place], [place] [phone] Nurse Triage Social History Tobacco Use Types [...] No answer LVM to return call to [facility] triage line [phone]. Also left details with [facility] operating hours. * Telephone Encounter - Esther Horvath - 06/08/2023 8:45 AM EST Symptom: Abdominal Pain - Male Outcome: Schedule an urgent appointment (within 4 hours) or talk to a nurse or provider soon Reason: Getting worse The caller accepted this outcome Please contact pt at [phone] documented in this encounter Plan of Treatment Not on file documented as of this encounter Visit Diagnoses Not on filedocumented in this encounter Care Teams Media Production Support Manager Relationship Specialty Start Date End Date Starla Martinez FNP [address] [place] [address] PCP - General Family Medicine 01/21/22 documented as of this encounter
--- OUTSIDE RECORDS SUMMARY | 2024-08-10 13:33 | XMS_ITS | Encounter Summary ---
Author Organization [employer] Address [address] [facility] 7t [place] [address] Care Team Providers Care Dealership General Manager Name Role Phone Starla Martinez [facility] Primary Care Provider [phone] Reason for Visit * Reason Onset Date Comments No Show 08/08/2024 Encounter Details Date Type Department Care Team ([facility] Contact Info) Description 08/08/2024 Telephone [facility] MEDICINE 230 [place], [place] [phone] [facility] 230 [place], [place] [phone] No Show Social History Tobacco Use Types Packs/Day Years [...] Telephone Encounter - Alma Oleary RN - 08/08/2024 11:04 AM EDT TC placed to pt., pt. Reports an emergency came up and he was not able to make appt today. Pt. Agrees to r/s to 08/10/24 at 11am with PCP * Telephone Encounter - Lien Watkins - 08/08/2024 10:35 AM EDT Pt no showed to appt on 08/08/24 documented in this encounter Plan of Treatment Not on file documented as of this encounter Visit Diagnoses Not on filedocumented in this encounter Additional Health Concerns Assessment Noted Time PHQ-9 Depression Total Score: 0 05/07/20 24 2:26 PM EST documented as of this encounter Care Teams Dealership General Manager Relationship Specialty Start Date End Date Starla Martinez FNP [address] [place] [address] PCP - General Family Medicine 01/21/22 documented as of this encounter
--- OUTSIDE RECORDS SUMMARY | 2024-08-10 13:33 | XMS_ITS | Encounter Summary ---
Author Organization [employer] Address [address] [facility] 7t [place] [address] Care Team Providers Care Welder Name Role Phone Starla Martinez [facility] Primary Care Provider [phone] Reason for Visit * Reason Onset Date Comments Nurse Triage 03/19/2024 Encounter Details Date Type Department Care Team ([facility] st Contact Info) Description 03/19/2024 Telephone [facility] MEDICINE [address] [place], [place] [phone] [facility] [address] [place] [address] Nurse Triage Social History Tobacco Use Types [...] up. Pt is offered to come to [facility] today but, declined. ASK apt with [...] documented as of this encounter Care Teams Welder Relationship Specialty Start Date End Date Starla Martinez FNP [address] [place] [address] PCP - General Family Medicine 01/21/22 documented as of this encounter
--- OUTSIDE RECORDS SUMMARY | 2024-08-10 13:33 | XMS_ITS | Encounter Summary ---
Author Organization [employer] Address [address] [facility] [facility] [address] [place] [address] Care Team Providers Care Automobile Glass Technician Name Role Phone Starla Martinez [facility] Primary Care Provider [phone] Encounter Details Date Type Department Care Team (Latest Contact Info) Description 08/10/2024 Travel Social History Tobacco Use Types Packs/Day Years Used Date Smoking Tobacco: Former Cigarettes Passive Smoke Exposure: Past Smokeless Tobacco: Never Alcohol Use Standard Drinks/Week [...] documented as of this encounter Care Teams Automobile Glass Technician Relationship Specialty Start Date End Date Starla Martinez FNP [address] [place] [address] PCP - General Family Medicine 01/21/22 documented as of this encounter
--- OUTSIDE RECORDS SUMMARY | 2024-08-10 13:33 | XMS_ITS | Clinical Summary ---
Author Organization [employer] Address [address] [facility] [address] [place] [address] Care Team Providers Care Business Resiliency Manager Name Role Phone Starla Martinez [facility] Primary Care Provider [phone] Allergies No known active allergies Medications levothyroxine (Synthroid, Levoxyl) 137 MCG tablet Take 1 tablet by mouth 1 (one) time each day. Active cetirizine (ZyrTEC) 10 MG tabletIndicati ons:Allergic rhinitis, unspecified seasonality, unspecified trigger Take 1 tablet (10 mg) by mouth in the morning. 30 tablet 5 09/02/19 24 Active fluticasone (Flonase) 50 MCG/ACT nasal sprayIndicatio ns:Chronic otitis media of right ear with effusion Administer 2 sprays into each nostril Once per day. Shake gently. Before first use, prime pump. After use, clean tip and replace cap. 16 g 2 03/28/20 24 025 Active triamcinolone (Kenalog) 0.025 % creamIndicatio ns:Dry skin dermatitis Apply topically 2 times daily. Mix entire tube with 16oz cera ve jar as instructed. Apply from neck down once daily 80 g 1 08/11/19 25 Active triamcinolone (Kenalog) 0.025 % creamIndicatio ns:Dry skin dermatitis Apply topically 2 times daily. Mix entire tube with 16oz cera ve jar as instructed. Apply from neck down once daily 80 g 1 05/07/20 24 025 Discontinued(Re order (will not trigger notification to Pharmacy)) Active Problems Problem Noted Date Diagnosed Date [...] TSH is at goal. Followed by [facility] Dr. Adams Seasonal allergic rhinitis 09/06/2016 Overweight (BMI 25.0-29.9) 09/06/2016 Encounters Date Type Department Care Team Description 08/10/2024 11:00 AM EDT Office Visit [facility] [address] [place] [address] DallasStarla FNP Dry skin dermatitis 08/10/2024 Travel 08/08/2024 Telephone [facility] [address] [place] [address] DallasStarla FNP No Show 08/06/2024 Telephone [facility] [address] [place] [address] DallasStarla FNP Labs Only 07/19/2024 Orders Only [facility] External Provider, [facility] from Last 3 Months Family History Medical [...] 17 08/10/2024 11:15 AM EDT Oxygen Saturation 98% 05/07/2024 2:15 PM EST Inhaled Oxygen Concentration - - Weight 85 kg (187 lb 8 oz) 08/10/2024 11:15 AM E DT Height 170.2 cm (5' 7 ) 08/10/2024 11:15 AM EDT Body Mass Index 29.37 08/10/2024 11:15 AM EDT Plan of Treatment Health Maintenance Due Date Last Done Comments CT Colonography 1979 Colonoscopy 1979 Colorectal Cancer Screening 1979 FIT DNA/Cologuard 1979 FIT 1979 FOBT 1979 Sigmoidoscopy 1979 Family Planning (PISQ) 1994 DTaP/Tdap/Td Vaccines (1 - Tdap) 09/28/2016 09/27/2016, 09/27/2016 COVID-19 Vaccine (3 - 4-2 5 season) 2024 09/18/2020, 08/27/2020 IPV Vaccines (2 of 3 - Adult catch-up series) 08/20/2024 07/23/2024 SDOH Screening 08/23/2024 08/24/2023 Hepatitis B Vaccines (2 of 2 - CpG 2-dose series) 08/24/2024 07/27/2024 Alcohol/Substance Use Screening 09/01/2024 09/02/2023 Depression Screening 05/07/2025 05/07/2024, 05/07/2024 Tobacco Screening 08/10/2025 08/10/2024 Lipid Panel 03/11/2027 03/11/2022, 01/29/2021, 11/12/2019 Zoster Vaccines (1 of 2) 2029 RSV Patients and Patients Aged 60 years or older (1 - 1-dose 75+ series) 2054 HIV Screening Completed 08/11/2021 Hepatitis C Screening Completed 08/11/2021 Influenza Vaccine Completed 07/21/2024 HIB Vaccines Aged Out No longer eligi [...] SOFT TISSUE Routine 07/20/2024 4:28 PM EST LIPID PANEL, STANDARD Routine 03/11/2022 4:21 PM EDT ZZZ HISTORICAL HEPATITIS C AB W/REFL TO HCV RNA, QN, PCR Routine 08/11/2021 3:10 PM EDT HIV 1/2 ANTIGEN/ANTIBODY, FOURTH GENERATION W/RFL Routine 08/11/2021 3:10 PM EDT from Last 3 Months or Most Recently Relevant to Health Maintenance Results * US Head Neck Soft Tissue (07/20/2024 4:28 PM EST) Anatomical Region Laterality Modality Head, Neck Ultrasound 07/20/2024 4:28 PM EST Narrative 07/20/2024 4:30 PM EST ? [facility] ?[address] ?[place] [address] ? Ultrasound Report ? Signed ? Patient: Alexandr Jack ?MR#: [id number] ? : 1980 ?Acct:[id number] ? Age/Sex: 44 / M ?ADM Date: 07/19/24 ? Loc: HO.US ? Attending Dr: Ivelisse Prescott MD ? Ordering Physician: Ivelisse Prescott MD ?? Date of Service: 07/19/24 ?? Procedure(s): US soft tiss head and/or neck ?? Accession Number(s): [id number] ? cc: Ivelisse Prescott MD; Starla MartinezP ? CLINICAL HISTORY: C73 - Malignant neoplasm [...] DD/ 1628 ? TD/TT: 07/20/24 1628 ? Rib Stiffener And Heel Dipper: ? Procedure Note Donwilliamter, Image - 07/20/2024 [place] [address] Ultrasound Report Signed Patient: Xochilt Jack#: [id number] : 1980Acct:[id number] Age/Sex: 44 / MADM Date: 07/19/24 Loc: HO.US Attending Dr: Ivelisse Prescott MD Ordering Physician: Ivelisse Prescott MD Date of Service: 07/19/24 Procedure(s): US soft tiss head and/or neck Accession Number(s): [id number] cc: Ivelisse Prescott MD; [facility] CLINICAL HISTORY: C73 - Malignant neoplasm of [...] 07/20/24 1630 DD/ 1628 TD/TT: 07/20/24 1628 Rib Stiffener And Heel Dipper: [facility] External Provider IMG US PROCEDURES Final Result * (ABNORMAL) LIPID PANEL, STANDARD (03/11/2022 4:21 [...] ?? Evin HAYNES et al. TOSIN. 2013;310(19): 7749-5577 ?? (http://education.Optimitive/faq/KOM385) Non-HDL Cholesterol 151(H) <130 mg/dL (calc) CONVERTED [...] Lipidol. 2015;9:129-169. ?? 03/11/2022 4:21 PM EDT [facility] SPOTTER DRIVER LAB BLOOD ORDERABLES Final Re sult Performing Organization Address City/[facility]/ZIP Co de Phone Number CONVERTED LEGACY [...] a test for HCV RNA (test code 35172) is suggested. ?? For additional information please refer to http://education.Appland/faq/AWT38o8 (This link is being provided for informational/ educational purposes only.) ?? 08/11/2021 3:10 PM EDT Tamiko Cox NEUROPATHOLOGIST HISTORICAL/NON ORDERABLE LABS F inal Result Performing Organization Address City/[facility]/ZIP Co de Phone Number [facility] [address] * HIV 1/2 ANTIGEN/ANTIBODY,FOURTH GENERATION W/RFL (08/11/2021 3:10 PM EDT) HIV-1/2 ANTIGEN AND ANTIBODIES, 4TH GENERATION W/ REFLEX NON-REACT [facility] NON-REACT [facility] Comment: HIV-1 antigen and HIV-1/HIV-2 [...] ? For additional information please refer to http://[employer].Appland/faq/ZDI186 (This link is being provided for informational/ educational purposes only.) ? The performance of this assay has not been clinically validated in patients less than 2 years old. ?? 08/11/2021 3:10 PM EDT us Tamiko Cox NEUROPATHOLOGIST LAB BLOOD ORDERABLES Final Resu lt [facility] [address] from Last 3 Months or Most Recently Relevant to Health Maintenance Insurance [facility] Care Teams Business Resiliency Manager Relationship Specialty Start Date End Date Starla Martinez FNP [address] [place] [address] [place] [address] PCP - General Family Medicine 01/21/22
--- OUTSIDE RECORDS SUMMARY | 2024-08-10 13:33 | XMS_ITS | Encounter Summary ---
Author Organization [employer] Address [address] [facility] [address] [place] [address] Care Team Providers Care Memorial Marker Designer Name Role Phone Starla Martinez [employer] Primary Care Provider [phone] Encounter Details Date Type Department Care Team (Latest Contact Info) Description 08/22/2018 Abstract [facility] CONVERSIONS Dental, Provider, DDS Social History Tobacco [...] on filedocumented in this encounter Care Teams Memorial Marker Designer Relationship Specialty Start Date End Date tSarla Martinez FNP [address] [place] [id number] PCP - General Family Medicine 01/21/22 documented as of this encounter
[2024-08-10 14:16] LABS: Alanine Aminotransferase 55 U/L (0-40); Albumin Level 4.4 g/dL (3.5-5.0); Alkaline Phosphatase 77 U/L (39-117); Anion Gap 12 (12-20); Aspartate Amino Transferase 29 U/L (5-37); Bilirubin Total 0.4 mg/dL (0.0-1.0); Blood Urea Nitrogen 12 mg/dL (9-16); Calcium 9.1 mg/dL (8.4-10.2); Carbon Dioxide 23 mmol/L (22-29); Chloride 109 mmol/L (96-108); Cholesterol 215 mg/dL (<200); Estimated Glomerular Filt Rate > 60; Glucose Random 124 mg/dL (60-115); HDL Cholesterol 38 mg/dL (>40); LDL Cholesterol Calculated 135 mg/dL (<100); Potassium 4.3 mmol/L (3.3-5.1); Sodium 140 mmol/L (135-145); Total Protein 7.4 g/dL (6.5-8.0); Triglycerides 214 mg/dL (<150)
[2024-08-10 14:24] LABS: Prostate Specific Antigen 0.51 ng/mL (<0.05-4.0)
== END 2024-08-10 11:43 | disposition home or self-care (01) ==
LOC: HO.HHCL 11:42
PROVIDERS: Registered Nurse; Visit Provider Nurse Practitioner Family
DX: Z00.00 Encounter for general adult medical examination without abnormal findings (principal); N40.0 Benign prostatic hyperplasia without lower urinary tract symptoms
CPT/HCPCS: 36415; 80053; 80061; 84153

== ENCOUNTER 2024-08-30 15:33 | Outpatient (AMB) | payer SELFPAY ==
[2024-08-30 15:40] VITALS: PULSE 60; O2SAT 96; BMI 30.6
--- NOTE | 2024-08-30 15:40 | MHC.OFFVIS ---
Vital Signs 08/30/24 15:40 Height 5 ft 6 in Weight 189 lb 9.561 oz BMI 30.6 Blood Pressure Location Rt brachial Position Sitting Pulse 60 Pulse Source Pulse Oximeter Pulse Oximetry (%) 96 Oxygen Delivery Method Room Air Intake Visit Reasons: Hypothyroidism Thyroid cancer Intake Note: Patient present today for Hypothyroidism and Thyroid Cancer follow up visit. 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 Margins were negative, no lymph nodes were assessed. AJCC stage I, pT3 a. JOHN initial intermediate risk of recurrence. Is post completion thyroidectomy 11/06/2021 with benign pathology. Status post radioactive iodine treatment with I 131 96.7 mCi 02/19/2022. Currently JOHN excellent response to therapy. Here with Dominic History of thyroid cancer in detail 2020: Noticed swelling in his neck 12/30/2020: Ultrasound thyroid revealed multiple bilateral thyroid nodules including a 7 cm hypoechoic nodule in the left lobe 05/19/2021: FNA biopsy of the 7 cm left lobe nodule with cytology suspicious for follicular neoplasm, Hurthle cell type ([place] category 4) Afirma was suspicious giving the risk of malignancy of 50% 08/26/2021: Status post left hemithyroidectomy (patient opted out of total thyroidectomy), revealed 6.8 cm focus of Hurthle cell carcinoma with no angioinvasion, no lymphatic invasion, no extrathyroidal extension. Margins were negative, no lymph nodes were assessed, AJCC stage I, pT3 8. AJCC initial intermediate risk of recurrence. 11/06/2021: Status post completion thyroidectomy, with benign pathology. 02/19/2022: Status post treatment with radioactive iodine I 131 96.7 mCi. Whole-body scan revealed physiologic uptake. 02/08/2022 TSH 37.94, TG 1.1, TG antibody less than 1 08/02/2022: Us neck showed Multiple bilateral normal lymph nodes 02/23/2023: Us neck Normal looking lymph nodes, an enlarged left level 2 lymph node measuring 0.4 X 0.7 X 1.1 cm, increased from size compared to previous 0.6 X 0.5 and 0.6 cm. 03/2023: Saw Dr. Jillian Horn at [facility] who did an office ultrasound which did not reveal any abnormal lymph nodes. 09/2023: Saw Dr. Horn again and in office US per patient was okay. We will request those records. Interval history 07/03/2024: TSH 1.29, free T4 1.32, thyroglobulin noted to be high at 3.7, TG antibodies less than 1 07/20/2024: Ultrasound of the neck, I reviewed the images myself which show mostly normal-appearing lymph nodes, and left level 5A 1.3 X 0.4 X 0.8 cm lymph node does not have a definitive fatty hilum, and more of a cystic appearance. This is too small to be biopsied. Currently patient is on 137 mcg of levothyroxine daily. Denies any compressive symptoms, denies any symptoms of hypo or hyperthyroidism. Physical exam General: sitting comfortably in no acute distress HEENT: normocephalic/atraumatic, moist oral mucosa Neck: supple, symmetrical, Cardiac: normal heart sounds Pulm: normal breath sounds B/L, no added breath sounds Abd: not distended, no tenderness Extremities: no edema, no signs of myxedema Neuro: AAO x3, Speech: normal, no facial droop, moving all 4 extremities Laboratory Tests 06/17/21 10/08/21 12/14/21 15:19 10:00 14:29 TSH 1.38 2.50 Free T4 0.96 1.02 1.42 Thyroglobulin Thyroglobulin Antibody 01/04/22 01/04/22 01/04/22 10:12 10:12 10:12 TSH 1.67 Free T4 1.21 Thyroglobulin <0.1 <0.1 L Thyroglobulin Antibody <1 <1 01/18/22 02/04/22 02/08/22 10:29 15:25 12:47 TSH 4.14 H 41.58 H 37.94 H Free T4 < 0.40 L < 0.40 L Thyroglobulin <0.1 0.9 L 1.1 L Thyroglobulin Antibody <1 <1 <1 04/05/22 08/30/22 11/11/22 13:53 10:33 16:11 TSH 1.44 2.38 0.21 L Free T4 1.41 0.92 1.45 Thyroglobulin <0.1 <0.1 Thyroglobulin Antibody <1 <1 12/13/22 02/21/23 08/26/23 13:06 10:00 13:39 TSH 0.16 L 0.09 L 0.68 Free T4 1.42 1.19 1.12 Thyroglobulin <0.1 Thyroglobulin Antibody <1 04/02/24 13:23 TSH 0.53 Free T4 1.41 Thyroglobulin <0.1 Thyroglobulin Antibody <1 Laboratory Tests 07/03/24 13:59 TSH 1.29 Free T4 1.32 Thyroglobulin 3.7 H Thyroglobulin Antibody <1 Ultrasound soft tissue neck 07/20/24 Comparison: None Findings: There are multiple lymph nodes within the neck, further described below. All lymph nodes are normal morphology and the majority demonstrate fatty joni. Right level 1B lymph node 1.2 x 0.3 x 1.0 cm not previously documented. Right level 3 lymph node 0.8 x 0.2 x 0.7 cm (previously 0.8 x 0.3 x 0.5 cm). Left level 1B lymph node 0.8 x 0.4 x 0.6 cm not previously documented. Left level 2 lymph node 0.9 x 0.4 x 0.6 cm (previously 0.9 x 0.4 x 0.9 cm). Left level 2 lymph node 1.1 x 0.3 x 0.5 cm not previously documented. Left level 3 lymph node 0.8 x 0.3 x 0.5 cm (previously 1.0 x 0.4 x 0.7 cm). Left level 5A lymph node 1.3 x 0.4 x 0.8 cm not previously documented. Impression: 1. Multiple small normal morphology lymph nodes within the neck, most likely inflammatory This document has been electronically signed by: Leigha Larson MD on 07/20/2024 16:28:52 US SOFT TISSUE HEAD/NECK 02/23/2023 CLINICAL INFORMATION: Malignant neoplasm of thyroid gland. History of Hurthle cell cancer status post thyroidectomy. Rule out recurrence or persistence. COMPARISON: Ultrasound soft tissue head/neck 08/02/2022. TECHNIQUE: Linear transducer morel-scale and color Doppler examination of the thyroid bed and surrounding soft tissue. FINDINGS: Status post total thyroidectomy without suspicious soft tissue within the thyroidectomy bed. There are several new right level 2 and 3 and left level 2 cervical nodes none demonstrating abnormal morphology or pathologic enlarged by short axis criteria measuring up to 2.1 x 0.7 x 1.2 cm on the right at level 2. A 0.4 x 0.7 x 1.1 cm left level 2 cervical node is increased in size from prior previously 0.6 x 0.5 x 0.6 cm though does not demonstrate pathologic enlargement. Few additional small cervical nodes none with abnormal morphology are not significantly changed or decreased in size. US/US soft tiss head and/or neck IMPRESSION: * A 0.4 x 1.1 cm left level 2 cervical node is increased in size from prior previously 0.6 x 0.5 cm though does not demonstrate pathologic enlargement by short axis criteria, however given growth and history of malignancy correlation with tissue sampling could be considered as metastasis cannot be excluded. * Status post total thyroidectomy without suspicious soft tissue within the thyroidectomy bed. * Several new right level 2 and 3 and left level 2 cervical nodes none demonstrating abnormal morphology or pathologic enlarged by short axis criteria. US SOFT TISSUE HEAD/NECK 08/02/22 CLINICAL INFORMATION: Malignant neoplasm of thyroid gland. COMPARISON: CT soft tissue neck without contrast 06/29/2021. US-guided thyroid biopsy 05/19/2021. Ultrasound thyroid 01/19/2021. TECHNIQUE: Ultrasound of the neck soft tissues is performed with high frequency morel-scale imaging and color Doppler. FINDINGS: RIGHT NECK SOFT TISSUES: Right neck soft tissues and nodes are as follows: Level 5A: 1.1 x 0.4 x 0.6 cm. Normal jose architecture. LEFT NECK SOFT TISSUES: Left neck soft tissues and nodes are as follows: Level 2: 0.6 x 0.5 x 0.6 cm. Normal jose architecture. Level 3: 1.1 x 0.3 x 0.6 cm. Normal jose architecture. Level 3: 1.1 x 0.4 x 0.6 cm. Normal jose architecture. Level 5A: 1.4 x 0.5 x 0.9 cm. Normal jose architecture. Level 5B: 1.4 x 0.5 x 0.7 cm. Normal jose architecture. OTHER: Prior thyroidectomy. No additional findings. US/US soft tiss head and/or neck IMPRESSION: Shotty, nonpathologically enlarged bilateral cervical lymph nodes are seen, as detailed. These are nonspecific and should be managed on a clinical basis. CT SOFT TISSUE NECK WITHOUT CONTRAST 06/29/21 CLINICAL INFORMATION: Thyroid cancer. COMPARISON: Previous thyroid ultrasound 01/19/2021. TECHNIQUE: Helical imaging was performed in the axial plane with generation of coronal and sagittal reformatted images. This CT examination was performed using dose optimization techniques as appropriate, variously including the following: *Automated exposure control *Adjustment of mA and/or kV according to patient size (this includes techniques or standardized protocols for targeted exams where dose is matched to indication/reason for exam; i.e. extremities or head) *Use of iterative reconstruction technique DLP: 455 mGy-cm FINDINGS: There is a large, partially cystic/partially solid left thyroid nodule. This measures 5.2 x 5.6 x 7.2 cm in transverse, AP and longitudinal dimensions. This occupies the entire left lobe. This displaces the trachea to the right. This extends inferiorly to the level of the top of the manubrium/sternomanubrial joints. There are small right thyroid nodules, largest measuring 8 x 10 mm in AP and transverse dimensions. There is diffuse shotty cervical lymphadenopathy seen bilaterally. Largest lymph nodes are upper normal in size in the bilateral jugulodigastric region measuring 1 cm in short axis No enlarged lymph nodes are seen. The visualized intracranial structures are normal. The visualized orbits are normal. The visualized paranasal sinuses, mastoid air cells and middle ears are clear. The salivary glands are normal. There is prominent soft tissue seen in the oropharynx probably representing prominent adenoidal soft tissue. No asymmetry to suggest a focal mass is seen. There is asymmetric appearance of the piriform sinuses with the left significantly larger than the right. Possible left vocal cord paralysis cannot be excluded and clinical correlation is recommended. There is no mediastinal lymphadenopathy. The visualized lung apices are clear. Vascular structures are not well assessed without contrast. There is curvature of the cervical spine to the right and degenerative changes. CT/CT soft tissue neck wo con IMPRESSION: Large, partially solid/partially cystic left thyroid nodule. This displaces the trachea to the right. This extends inferior to the manubrium. Small right thyroid nodules. Diffuse cervical lymphadenopathy. Largest lymph nodes are upper normal size. Asymmetric appearance of the piriform sinuses questionable for possible left vocal cord paralysis. Clinical correlation recommended. US THYROID 01/19/21 CLINICAL INFORMATION: Mass, lump left neck going up to patient's jaw. COMPARISON: None TECHNIQUE: Linear transducer grayscale and color Doppler examination with attention to the region of the thyroid. FINDINGS: SIZE: Measurements of the thyroid lobes and nodules are given in sagittal, anteroposterior and transverse dimensions respectively. Right Thyroid Lobe: 5.1 x 1.5 x 1.8 cm, volume 7.2 mL. Parenchyma: The gland echotexture is homogeneous. Thyroid vascularity is increased. Left Thyroid Lobe: 7.7 x 4.8 x 5.6 cm, volume 108.2 mL. Parenchyma: The gland echotexture is heterogeneous. Thyroid vascularity is increased. Isthmus: 0.3 cm in maximum AP dimension. Estimated total number of nodules greater than or equal to 1 cm: 2. Computer Information Systems Professor nodules are described as follows: 1. Location: Right superior. Size: 0.98 x 0.90 x 1.04 cm, volume 0.48 mL. Nodule characteristics: Composition: Solid (2). Echogenicity: Isoechoic (1). Shape: Not taller than wide (0). Margins: Lobulated (2). Echogenic Foci: None (0). ACR TI-RADS total points: 5 ACR TI-RADS category: 4 2. Location: Right superior/mid. Size: 0.91 x 0.96 x 0.81 cm, volume 0.37 mL. Nodule characteristics: Composition: Solid (2). Echogenicity: Isoechoic (1). Shape: Taller than wide (3). Margins: Lobulated (2). Echogenic Foci: None (0). ACR TI-RADS total points: 8 ACR TI-RADS category: 5 3. Location: Left. Size: 7.04 x 5.73 x 5.87 cm, volume 124 mL. Nodule characteristics: Composition: Solid (2). Echogenicity: Cannot be determined (1). Shape: Not taller than wide (0). Margins: Lobulated (2). Echogenic Foci: Punctate echogenic foci (3). ACR TI-RADS total points: 8 ACR TI-RADS category: 5 NODES: No lymphadenopathy is seen in the tissue surrounding the thyroid gland. US/US thyroid IMPRESSION: 1. Bilateral thyroid nodules are seen, as above. The 7.7 cm in maximal diameter left thyroid lobe nodule meets ACR biopsy criteria and is amenable to ultrasound-guided biopsy, if clinically indicated and not already performed. 2. There is an asymmetric goiter. 3. There is heterogeneous thyroid echotexture or increased vascularity, which can be associated with thyroiditis. [facility] Medical History (Updated 07/03/24 @ 13:45 by Ivelisse Prescott MD) Hypothyroidism Thyroid cancer Thyroid neoplasm Vitamin D deficiency Multinodular thyroid Surgical History Hx of total thyroidectomy Hx of partial thyroidectomy History of surgery Hx of lithotripsy Family History Father No known health problems Mother No known health problems Social History Alcohol intake: current Alcohol intake frequency: does not drink Patient Tobacco Use Status: Never used Tobacco Assessment & Plan Assessment & Plan (1) Thyroid cancer: Code(s): C73 - Malignant neoplasm of thyroid gland Category: Medical Plan: 44-year-old male here today for follow 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 Margins were negative, no lymph nodes were assessed. AJCC stage I, pT3 a. JOHN initial intermediate risk of recurrence. Is post completion thyroidectomy 11/06/2021 with benign pathology. Status post radioactive iodine treatment with I 131 96.7 mCi 02/19/2022. His non stimulated TG levels have been undetectable with negative TG antibodies in the past, however most recent levels done in June 2024 showed non stimulated TG level is to 3.7, which is concerning for thyroid cancer recurrence. Thyroglobulin antibodies remain negative., ultrasound of the neck done in June 2024 shows bilateral normal-appearing lymph nodes with the exception of a left level 5A, 1.3 X 0.4 X 0.8 cm lymph node which does not have a fit definitive fatty hilum and more of a cystic appearance. However it is 0.4 cm in the short axis and does not meet criteria for biopsy. At this time we will proceed with a diagnostic whole-body scan to look for thyroid cancer recurrence. Given concern for recurrence at this time I will suppress his TSH for now. Even if no structural recurrence is found, he would then classifies biochemical incomplete response in his TSH goal would be 0.1-0.5. For now we will suppress his TSH. Plan: -increase levothyroxine to 150 mcg daily from 137 mcg daily -ordered TSH, free T4 to be done in 6 weeks -referred for diagnostic whole-body scan with 4 mCi of I 131 to [facility] -follow up in 10 weeks to discuss results Discussed Thyrogen protocol with the patient. Discussed importance of isolation after the radioactive iodine pill up until the scan. (2) Hypothyroidism: Code(s): E03.9 - Hypothyroidism, unspecified Category: Medical Qualifiers: Hypothyroidism type: postoperative Qualified Code(s): E89.0 - Postprocedural hypothyroidism Plan: Aiming for suppressing his TSH for now given concern for recurrence. Plan: -increase levothyroxine to 150 mcg daily Ordered TSH, free T4 to be done in 6 weeks Plan I spent 30 minutes in reviewing the record, seeing the patient and documenting in the medical record. Orders: Orders NM thyroid ca whole body Today C73 - Malignant neoplasm of thyroid gland Patient Instructions: Increase levothyroxine to 150 mcg daily , new prescription sent to pharmacy Do blood work in 6 weeks We will refer you to [facility] for a diagnostic whole body scan, you will hear from both our nurse and [facility] nucelar medicine team regarding this Coding Level of Care Code Est Pt Level 4 (37993) Complex EM visit Add On G2211 Diagnoses Thyroid cancer C73 Postoperative hypothyroidism E89.0 Hypothyroidism type: postoperative Time Spent (min) 30
--- OUTSIDE RECORDS SUMMARY | 2024-08-30 16:54 | XMS_ITS | Encounter Summary ---
Author Organization [employer] Address [address] [facility] [address] [place] [address] Care Team Providers Care Senior Qa Analyst Name Role Phone Starla Martinez [facility] Primary Care Provider [phone] Reason for Visit * Reason Onset Date Comments No Show 08/27/2024 Encounter Details Date Type Department Care Team ([facility] Contact Info) Description 08/27/2024 Telephone [facility] MEDICINE [address] [place], [place] [phone] [facility] [address] [place], [place] [phone] No Show Social History Tobacco Use Types [...] Recorded What is your housing situation today? Not on riky e 08/24/[address] you li ve. Do you have problems with any of the following? None of the above 08/24/2024 Food Insecurity Answer Date Recorded Within the [...] encounter Miscellaneous Notes * Telephone Encounter - Lien Watkins - 08/27/2024 2:52 PM EDT Pt no showed to appt on 08/27/24 documented in this encounter Plan of Treatment Not on file documented as of this encounter Visit Diagnoses Not on filedocumented in this encounter Additional Health Concerns Assessment Noted Time PHQ-9 Depression Total Score: 0 05/07/20 24 2:26 PM EST documented as of this encounter Care Teams Senior Qa Analyst Relationship Specialty Start Date End Date Starla Martinez FNP [address] [place] [phone] PCP - General Family Medicine 01/21/22 documented as of this encounter
--- OUTSIDE RECORDS SUMMARY | 2024-08-30 16:54 | XMS_ITS | Encounter Summary ---
Author Organization [employer] Address [address] [facility] [address] [place] [address] Care Team Providers Care Plant Operator Control Room Operator Name Role Phone Starla Martinez SECURITIES ATTORNEY Primary Care Provider [phone] Encounter Details Date Type Department Care Team (Latest Contact Info) Description 08/22/2018 Abstract [facility] CONVERSIONS Dental, Provider, DDS Social History [...] on filedocumented in this encounter Care Teams Plant Operator Control Room Operator Relationship Specialty Start Date End Date Starla Martinez FNP [address] [place] [id number] PCP - General Family Medicine 01/21/22 documented as of this encounter
--- OUTSIDE RECORDS SUMMARY | 2024-08-30 16:54 | XMS_ITS | Encounter Summary ---
Author Organization [employer] Address [address] [facility] [address] [place] [address] Care Team Providers Care Plant General Manager Name Role Phone Starla Martinez [facility] Primary Care Provider [phone] Reason for Visit * Reason Onset Date Comments Nurse Triage 03/19/2024 Encounter Details Date Type Department Care Team ([facility] st Contact Info) Description 03/19/2024 Telephone [facility] MEDICINE [address] [place], [place] [phone] [facility] [address] [place] [address] Nurse Triage Social History Tobacco Use Types [...] up. Pt is offered to come to [facility] today but, declined. ASK apt with PCP [...] documented as of this encounter Care Teams Plant General Manager Relationship Specialty Start Date End Date Starla Martinez FNP [address] [place] [phone] PCP - General Family Medicine 01/21/22 documented as of this encounter
--- OUTSIDE RECORDS SUMMARY | 2024-08-30 16:54 | XMS_ITS | Encounter Summary ---
Author Organization [employer] Address [address] [facility] [address] [place] [address] Care Team Providers Care Display Manager Name Role Phone Starla Martinez [facility] Primary Care Provider [phone] Reason for Visit * Reason Onset Date Comments Nurse Triage 06/08/2023 Encounter Details Date Type Department Care Team ([facility] st Contact Info) Description 06/08/2023 Telephone [facility] MEDICINE [address] [place], [place] [phone] [facility] [address] [place], [place] [phone] Nurse Triage Social History Tobacco Use Types [...] No answer LVM to return call to [facility] triage line [phone]. Also left details with [facility] operating hours. * Telephone Encounter - Esther Horvath - 06/08/2023 8:45 AM EST Symptom: Abdominal Pain - Male Outcome: Schedule an urgent appointment (within 4 hours) or talk to a nurse or provider soon Reason: Getting worse The caller accepted this outcome Please contact pt at [phone] documented in this encounter Plan of Treatment Not on file documented as of this encounter Visit Diagnoses Not on filedocumented in this encounter Care Teams Display Manager Relationship Specialty Start Date End Date Starla Martinez FNP [address] [place] [phone] PCP - General Family Medicine 01/21/22 documented as of this encounter
--- OUTSIDE RECORDS SUMMARY | 2024-08-30 16:54 | XMS_ITS | Clinical Summary ---
Author Organization [employer] Address [address] [facility] [address] [place] [address] Care Team Providers Care Sales Utility Representative Name Role Phone Starla Martinez [facility] Primary Care Provider [phone] Allergies No known active allergies Medications levothyroxine [...] daily. TSH is at goal. Followed by [facility] Dr. Adams Seasonal allergic rhinitis 09/06/2016 Overweight (BMI 25.0-29.9) 09/06/2016 Encounters Date Type Department Care Team Description 08/27/2024 Telephone [facility] [address] [place] [id number] [place] Show 08/14/[address] [address] [place] Results 08/10/2024 11:00 AM EDT Office Visit [address] [address] Starla Martinez FNP Muscle strain (Primary Dx); Dry skin dermatitis; Elevated fasting blood sugar 08/10/2024 Travel 08/08/[address] [address] [place] No Show 08/06/[address] [address] [place] Labs Only 07/19/2024 Orders Only [facility] External Provider, [facility] from Last 3 Months Family History [...] 09/28/2016 09/27/2016, 09/27/2016 COVID-19 Vaccine (3 - season) 2024 09/18/2020, 08/27/2020 IPV Vaccines (2 of 3 - Adult catch-up series) 08/20/2024 07/23/2024 SDOH Screening 08/23/2024 08/24/2023 Hepatitis B Vaccines (2 of 2 - CpG 2-dose series) 08/24/2024 07/27/2024 Alcohol/Substance Use Screening 09/01/2024 09/02/2023 Depression Screening 05/07/2025 05/07/2024, 05/07/20 24 Tobacco Screening 08/13/2025 08/13/2024 Zoster Vaccines (1 of 2) 2029 Lipid Panel 08/10/2029 08/10/2024, 02/27, 01/29/2021, Additional history exists RSV Patients and Patients Aged 60 years [...] 49) Years) Aged Out No longer eligible based on patient's age to complete this topic RSV under 20 months Aged Out No longe r eligible based on patient's age to complete this topic Rotavirus Vaccines Aged Out No longer eligible based on patient's age to complete this topic Procedures Procedure Name Priority Date/Time Associated Diagnosis Comments LIPID PANEL, STANDARD Routine 08/10/2024 11:43 AM EDT Healthcare maintenance COMPREHENSIVE METABOLIC PANEL Routine 08/10/2024 11:43 AM EDT Healthcare maintenance US HEAD NECK SOFT TISSUE Routine 07/20/2024 4:28 PM EST ZZZ HISTORICAL HEPATITIS C AB W/REFL TO HCV RNA, QN, PCR Routine 08/11/2021 3:10 PM EDT HIV 1/2 ANTIGEN/ANTIBODY, FOURTH GENERATION W/RFL Routine 08/11/2021 3:10 PM EDT from Last 3 Months or Most Recently Relevant to Health Maintenance Results * (ABNORMAL) Lipid Panel, Standard (08/10/2024 11:43 AM EDT) Triglycerides 214(H) <150 mg/dL [facility] Comment:Desirable Triglyceri de: less than 150 mg/dLBorderline High Triglyceride 150-199 mg/dLHigh Triglyceride: 200-499 mg/dLVery High Triglyceride: greater than or equal to 5OO mg/dL Cholesterol 215(H) <200 mg/dL [facility] Comment:Desirable Cholestero l: less than 200 mg/dLBorderline High Cholesterol: 200-239 mg/dLHigh Cholesterol: greater than 239 mg/dL LDL Cholesterol Calculated 135(H) <100 mg/dL [facility] Comment:Desirable LDL: less than 100 mg/dLNear Optimal/Above Optimal LDL: 110- 129 mg/dLBorderline High LDL: 130-159 mg/dLHigh LDL: 160-189 mg/dLVery High LDL: greater than or equal to 190 mg/dL HDL Cholesterol 38(L) >40 mg/dL [facility] Comment:Desirable HDL: great er than 40 mg/dL Note: This HDL assay may give artificially low results in patients with liver disease. Blood Venous blood specimen / Unknown 08/10/2024 11:43 AM EDT 08/10/2024 1:32 PM EDT [facility] LAB BLOOD ORDERABLES Final Re sult Performing Organization Address City/[facility]/ZIP Co de Phone Number [facility] [address] [place] [address] [phone] * (ABNORMAL) Comprehensive Metabolic Panel (08/10/2024 11:43 AM EDT) Sodium 140 135 - 145 mmol/L [facility] Potassium 4.3 3.3 - 5.1 mmol/L [facility] Chloride 109(H) 96 - 108 mmol/L [facility] Carbon Dioxide 23 22 - 29 mmol/L [facility] Anion Gap 12 12 - 20 [facility] Urea Nitrogen (BUN) 12 9 - 16 mg/dL [facility] Creatinine, Serum 0.71 0.5 - 1.4 mg/dL [facility] Estimated Glomerular Filt Rate >60 [facility] Comment:Chronic Kidney Disea se: Estimated GFR < 60 mL/min/1.52h5Hyxarh Kidney Disease: Estimated GFR < 15 mL/min/1.73m2 Glucose 124(H) 60 - 115 mg/dL [facility] Calcium 9.1 8.4 - 10.2 mg/dL [facility] Bilirubin, Total 0.4 0.0 - 1.0 mg/dL [facility] Aspartate Amino Transferase 29 5 - 37 U/L [facility] Alanine Aminotransferase 55(H) 0 - 40 U/L [facility] Total Protein 7.4 6.5 - 8.0 g/dL [facility] Albumin Level 4.4 3.5 - 5.0 g/dL [facility] Alkaline Phosphatase 77 39 - 117 U/L [facility] Blood Venous blood specimen / Unknown 08/10/2024 11:43 AM EDT 08/10/2024 1:32 PM EDT [facility] LAB BLOOD ORDERABLES Final Re sult Performing Organization Address City/[facility]/ZIP Co de Phone Number [facility] [address] [facility] [place] [address] [phone] * US Head Neck Soft Tissue (07/20/2024 4:28 PM EST) Anatomical Region Laterality Modality Head, Neck Ultrasound 07/20/2024 4:28 PM EST Narrative 07/20/2024 4:30 PM EST ? [facility] ?[address] ?[place] [phone] ? Ultrasound Report ? Signed ? Patient: Oflu,Alexandr ?MR#: [id number] ? : 1980 ?Acct:[id number] ? Age/Sex: 44 / M ?ADM Date: 07/19/24 ? Loc: HO.US ? Attending Dr: Ivelisse Prescott MD ? Ordering Physician: Ivelisse Prescott MD ?? Date of Service: 07/19/24 ?? Procedure(s): US soft tiss head and/or neck ?? Accession Number(s): [id number] ? cc: Ivelisse Prescott MD; Starla Martinez [...] DD/ 1628 ? TD/TT: 07/20/24 1628 ? Shake Table Operator: ? Procedure Note Donwilliamter, Image - 07/20/[address] [address] Ultrasound Report Signed Patient: Xochilt Jack#: [id number] : 1980Acct:[id number] Age/Sex: 44 / MADM Date: 07/19/24 Loc: HO.US Attending Dr: Ivelisse Prescott MD Ordering Physician: Ivelisse Prescott MD Date of Service: 07/19/24 Procedure(s): US soft tiss head and/or neck Accession Number(s): [id number] cc: Ivelisse Prescott MD; [facility] CLINICAL HISTORY: C73 - Malignant neoplasm of [...] 07/20/24 1630 DD/ 1628 TD/TT: 07/20/24 1628 Shake Table Operator: [facility] External Provider IMG US PROCEDURES Final Result * HEPATITIS C AB W/REFL TO HCV RNA, QN, PCR (08/11/2021 3:10 PM EDT) HEPATITIS C ANTIBODY NON-REACT SREEKANTH NON-REACT SREEKANTH [facility] INDEX 0.01 <1.00 [facility] Comment: ?? HCV antibody was non-reactive. There is no laboratory ?? evidence of HCV infection. ?? In most cases, no further action is required. However, if recent HCV exposure is suspected, a test for HCV RNA (test code 20203) is suggested. ?? For additional information please refer to http://education.Fashion To Figure/faq/OXY56a3 (This link is being provided for informational/ educational purposes only.) ?? 08/11/2021 3:10 PM EDT Tamiko Cox NP HISTORICAL/NON ORDERABLE LABS F inal Result [facility] [address] * HIV 1/2 ANTIGEN/ANTIBODY,FOURTH GENERATION W/RFL [...] ? For additional information please refer to http://education.Fashion To Figure/faq/NVL617 (This link is being provided for informational/ educational purposes only.) ? The performance of this assay has not been clinically validated in patients less than 2 years old. ?? 08/11/2021 3:10 PM EDT us Tamiko Cox NP LAB BLOOD ORDERABLES Final Resu lt [facility] [address] from Last 3 Months or Most Recently Relevant to Health Maintenance Insurance [facility] Care Teams Sales Utility Representative Relationship Specialty Start Date End Date Starla Martinez FNP [address] [place] [address] PCP - General Family Medicine 01/21/22
== END 2024-08-30 16:01 | disposition home or self-care (01) ==
LOC: HO.ENCR 15:34
PROVIDERS: PCP Registered Nurse; Visit Provider Student in an Organized Health Care Education/Training Program
DX: C73 Malignant neoplasm of thyroid gland (principal); E89.0 Postprocedural hypothyroidism
CPT/HCPCS: 99214; G2211

== ENCOUNTER → 2024-08-30 15:33 | Outpatient (BNVA) | payer SELFPAY | PROVIDERS: PCP Registered Nurse; Visit Provider Student in an Organized Health Care Education/Training Program | DX: C73 Malignant neoplasm of thyroid gland (principal); E89.0 Postprocedural hypothyroidism | CPT/HCPCS: 99212 ==

== ENCOUNTER 2024-11-08 10:27 | Outpatient (REF) | payer OTHER, SELFPAY ==
[2024-11-08 12:28] LABS: Estimated Average Glucose 108 mg/dL; Hemoglobin A1c % 5.4 % (<6.0)
[2024-11-08 12:51] LABS: Free T4 (Free Thyroxine) 1.44 ng/dL (0.71-1.85); Thyroid Stimulating Hormone 0.04 uIU/mL (0.32-4.0)
[2024-11-09 16:53] LABS: Thyroglobulin <0.1 ng/mL; Thyroglobulin Antibodies <1 IU/mL (< or = 1)
[2024-11-12 07:35] LABS: Thyroglobulin Antibody <1 IU/mL (<=1); Thyroglobulin Level <0.1 ng/mL
== END 2024-11-08 10:28 | disposition home or self-care (01) ==
LOC: HO.LAB 10:27
PROVIDERS: PCP Registered Nurse; Visit Provider Student in an Organized Health Care Education/Training Program
DX: C73 Malignant neoplasm of thyroid gland (principal); E89.0 Postprocedural hypothyroidism; R73.01 Impaired fasting glucose
CPT/HCPCS: 36415; 83036; 84432; 84439; 84443; 86800

== ENCOUNTER 2024-11-08 10:27 | Outpatient (AMB) | payer OTHER, SELFPAY ==
[2024-11-08 10:33] VITALS: BP 108/68; PULSE 66; O2SAT 97; BMI 28.8
--- NOTE | 2024-11-08 10:33 | MHC.OFFVIS ---
Vital Signs 11/08/24 10:33 Height 5 ft 6 in Weight 178 lb 5.663 oz BMI 28.8 BP 108/68 Blood Pressure Location Lt brachial Position Sitting Pulse 66 Pulse Source Pulse Oximeter Pulse Oximetry (%) 97 Oxygen Delivery Method Room Air Intake Visit Reasons: Thyroid Cancer Intake Note: Patient present today for Thyroid Cancer office visit. 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 Margins were negative, no lymph nodes were assessed. AJCC stage I, pT3 a. JOHN initial intermediate risk of recurrence. Is post completion thyroidectomy 11/06/2021 with benign pathology. Status post radioactive iodine treatment with I 131 96.7 mCi 02/19/2022. Currently JOHN excellent response to therapy. Here with Dominic History of thyroid cancer in detail 2020: Noticed swelling in his neck 12/30/2020: Ultrasound thyroid revealed multiple bilateral thyroid nodules including a 7 cm hypoechoic nodule in the left lobe 05/19/2021: FNA biopsy of the 7 cm left lobe nodule with cytology suspicious for follicular neoplasm, Hurthle cell type ([place] category 4) Afirma was suspicious giving the risk of malignancy of 50% 08/26/2021: Status post left hemithyroidectomy (patient opted out of total thyroidectomy), revealed 6.8 cm focus of Hurthle cell carcinoma with no angioinvasion, no lymphatic invasion, no extrathyroidal extension. Margins were negative, no lymph nodes were assessed, AJCC stage I, pT3 8. AJCC initial intermediate risk of recurrence. 11/06/2021: Status post completion thyroidectomy, with benign pathology. 02/19/2022: Status post treatment with radioactive iodine I 131 96.7 mCi. Whole-body scan revealed physiologic uptake. 02/08/2022 TSH 37.94, TG 1.1, TG antibody less than 1 08/02/2022: Us neck showed Multiple bilateral normal lymph nodes 02/23/2023: Us neck Normal looking lymph nodes, an enlarged left level 2 lymph node measuring 0.4 X 0.7 X 1.1 cm, increased from size compared to previous 0.6 X 0.5 and 0.6 cm. 03/2023: Saw Dr. Jillian Horn at [facility] who did an office ultrasound which did not reveal any abnormal lymph nodes. 09/2023: Saw Dr. Horn again and in office US per patient was okay. We will request those records. 07/03/2024: TSH 1.29, free T4 1.32, thyroglobulin noted to be high at 3.7, TG antibodies less than 1 07/20/2024: Ultrasound of the neck, I reviewed the images myself which show mostly normal-appearing lymph nodes, and left level 5A 1.3 X 0.4 X 0.8 cm lymph node does not have a definitive fatty hilum, and more of a cystic appearance. This is too small to be biopsied. 08/30/2024: Visit with me recommended increase levothyroxine to 150 mcg daily and a whole-body scan Interval history He was scheduled for a whole-body scan on my recommendation due to elevated TG levels, however spoke with Dr. Horn at [facility] for 2nd opinion where labs were repeated. 09/11/2024: TSH 0.55, free T4 1.61, TG less than 0.1, TG antibody less than 0.4 10/05/2024 TG less than 0.1, TG antibody less than 0.4 10/05/2024: Then saw Dr. Horn at [facility], ultrasound performed by Dr. Horn herself, no abnormal lymph nodes seen. Currently patient is on 137 mcg of levothyroxine daily. Denies any compressive symptoms, denies any symptoms of hypo or hyperthyroidism. Physical exam General: sitting comfortably in no acute distress HEENT: normocephalic/atraumatic, moist oral mucosa Neck: supple, symmetrical, Cardiac: normal heart sounds Pulm: normal breath sounds B/L, no added breath sounds Abd: not distended, no tenderness Extremities: no edema, no signs of myxedema Neuro: AAO x3, Speech: normal, no facial droop, moving all 4 extremities Laboratory Tests 06/17/21 10/08/21 12/14/21 15:19 10:00 14:29 TSH 1.38 2.50 Free T4 0.96 1.02 1.42 Thyroglobulin Thyroglobulin Antibody 01/04/22 01/04/22 01/04/22 10:12 10:12 10:12 TSH 1.67 Free T4 1.21 Thyroglobulin <0.1 <0.1 L Thyroglobulin Antibody <1 <1 01/18/22 02/04/22 02/08/22 10:29 15:25 12:47 TSH 4.14 H 41.58 H 37.94 H Free T4 < 0.40 L < 0.40 L Thyroglobulin <0.1 0.9 L 1.1 L Thyroglobulin Antibody <1 <1 <1 04/05/22 08/30/22 11/11/22 13:53 10:33 16:11 TSH 1.44 2.38 0.21 L Free T4 1.41 0.92 1.45 Thyroglobulin <0.1 <0.1 Thyroglobulin Antibody <1 <1 12/13/22 02/21/23 08/26/23 13:06 10:00 13:39 TSH 0.16 L 0.09 L 0.68 Free T4 1.42 1.19 1.12 Thyroglobulin <0.1 Thyroglobulin Antibody <1 04/02/24 13:23 TSH 0.53 Free T4 1.41 Thyroglobulin <0.1 Thyroglobulin Antibody <1 Laboratory Tests 07/03/24 13:59 TSH 1.29 Free T4 1.32 Thyroglobulin 3.7 H Thyroglobulin Antibody <1 Ultrasound soft tissue neck 07/20/24 Comparison: None Findings: There are multiple lymph nodes within the neck, further described below. All lymph nodes are normal morphology and the majority demonstrate fatty joni. Right level 1B lymph node 1.2 x 0.3 x 1.0 cm not previously documented. Right level 3 lymph node 0.8 x 0.2 x 0.7 cm (previously 0.8 x 0.3 x 0.5 cm). Left level 1B lymph node 0.8 x 0.4 x 0.6 cm not previously documented. Left level 2 lymph node 0.9 x 0.4 x 0.6 cm (previously 0.9 x 0.4 x 0.9 cm). Left level 2 lymph node 1.1 x 0.3 x 0.5 cm not previously documented. Left level 3 lymph node 0.8 x 0.3 x 0.5 cm (previously 1.0 x 0.4 x 0.7 cm). Left level 5A lymph node 1.3 x 0.4 x 0.8 cm not previously documented. Impression: 1. Multiple small normal morphology lymph nodes within the neck, most likely inflammatory This document has been electronically signed by: Leigha Larson MD on 07/20/2024 16:28:52 US SOFT TISSUE HEAD/NECK 02/23/2023 CLINICAL INFORMATION: Malignant neoplasm of thyroid gland. History of Hurthle cell cancer status post thyroidectomy. Rule out recurrence or persistence. COMPARISON: Ultrasound soft tissue head/neck 08/02/2022. TECHNIQUE: Linear transducer morel-scale and color Doppler examination of the thyroid bed and surrounding soft tissue. FINDINGS: Status post total thyroidectomy without suspicious soft tissue within the thyroidectomy bed. There are several new right level 2 and 3 and left level 2 cervical nodes none demonstrating abnormal morphology or pathologic enlarged by short axis criteria measuring up to 2.1 x 0.7 x 1.2 cm on the right at level 2. A 0.4 x 0.7 x 1.1 cm left level 2 cervical node is increased in size from prior previously 0.6 x 0.5 x 0.6 cm though does not demonstrate pathologic enlargement. Few additional small cervical nodes none with abnormal morphology are not significantly changed or decreased in size. US/US soft tiss head and/or neck IMPRESSION: * A 0.4 x 1.1 cm left level 2 cervical node is increased in size from prior previously 0.6 x 0.5 cm though does not demonstrate pathologic enlargement by short axis criteria, however given growth and history of malignancy correlation with tissue sampling could be considered as metastasis cannot be excluded. * Status post total thyroidectomy without suspicious soft tissue within the thyroidectomy bed. * Several new right level 2 and 3 and left level 2 cervical nodes none demonstrating abnormal morphology or pathologic enlarged by short axis criteria. US SOFT TISSUE HEAD/NECK 08/02/22 CLINICAL INFORMATION: Malignant neoplasm of thyroid gland. COMPARISON: CT soft tissue neck without contrast 06/29/2021. US-guided thyroid biopsy 05/19/2021. Ultrasound thyroid 01/19/2021. TECHNIQUE: Ultrasound of the neck soft tissues is performed with high frequency morel-scale imaging and color Doppler. FINDINGS: RIGHT NECK SOFT TISSUES: Right neck soft tissues and nodes are as follows: Level 5A: 1.1 x 0.4 x 0.6 cm. Normal jose architecture. LEFT NECK SOFT TISSUES: Left neck soft tissues and nodes are as follows: Level 2: 0.6 x 0.5 x 0.6 cm. Normal jose architecture. Level 3: 1.1 x 0.3 x 0.6 cm. Normal jose architecture. Level 3: 1.1 x 0.4 x 0.6 cm. Normal jose architecture. Level 5A: 1.4 x 0.5 x 0.9 cm. Normal jose architecture. Level 5B: 1.4 x 0.5 x 0.7 cm. Normal jose architecture. OTHER: Prior thyroidectomy. No additional findings. US/US soft tiss head and/or neck IMPRESSION: Shotty, nonpathologically enlarged bilateral cervical lymph nodes are seen, as detailed. These are nonspecific and should be managed on a clinical basis. CT SOFT TISSUE NECK WITHOUT CONTRAST 06/29/21 CLINICAL INFORMATION: Thyroid cancer. COMPARISON: Previous thyroid ultrasound 01/19/2021. TECHNIQUE: Helical imaging was performed in the axial plane with generation of coronal and sagittal reformatted images. This CT examination was performed using dose optimization techniques as appropriate, variously including the following: *Automated exposure control *Adjustment of mA and/or kV according to patient size (this includes techniques or standardized protocols for targeted exams where dose is matched to indication/reason for exam; i.e. extremities or head) *Use of iterative reconstruction technique DLP: 455 mGy-cm FINDINGS: There is a large, partially cystic/partially solid left thyroid nodule. This measures 5.2 x 5.6 x 7.2 cm in transverse, AP and longitudinal dimensions. This occupies the entire left lobe. This displaces the trachea to the right. This extends inferiorly to the level of the top of the manubrium/sternomanubrial joints. There are small right thyroid nodules, largest measuring 8 x 10 mm in AP and transverse dimensions. There is diffuse shotty cervical lymphadenopathy seen bilaterally. Largest lymph nodes are upper normal in size in the bilateral jugulodigastric region measuring 1 cm in short axis No enlarged lymph nodes are seen. The visualized intracranial structures are normal. The visualized orbits are normal. The visualized paranasal sinuses, mastoid air cells and middle ears are clear. The salivary glands are normal. There is prominent soft tissue seen in the oropharynx probably representing prominent adenoidal soft tissue. No asymmetry to suggest a focal mass is seen. There is asymmetric appearance of the piriform sinuses with the left significantly larger than the right. Possible left vocal cord paralysis cannot be excluded and clinical correlation is recommended. There is no mediastinal lymphadenopathy. The visualized lung apices are clear. Vascular structures are not well assessed without contrast. There is curvature of the cervical spine to the right and degenerative changes. CT/CT soft tissue neck wo con IMPRESSION: Large, partially solid/partially cystic left thyroid nodule. This displaces the trachea to the right. This extends inferior to the manubrium. Small right thyroid nodules. Diffuse cervical lymphadenopathy. Largest lymph nodes are upper normal size. Asymmetric appearance of the piriform sinuses questionable for possible left vocal cord paralysis. Clinical correlation recommended. US THYROID 01/19/21 CLINICAL INFORMATION: Mass, lump left neck going up to patient's jaw. COMPARISON: None TECHNIQUE: Linear transducer grayscale and color Doppler examination with attention to the region of the thyroid. FINDINGS: SIZE: Measurements of the thyroid lobes and nodules are given in sagittal, anteroposterior and transverse dimensions respectively. Right Thyroid Lobe: 5.1 x 1.5 x 1.8 cm, volume 7.2 mL. Parenchyma: The gland echotexture is homogeneous. Thyroid vascularity is increased. Left Thyroid Lobe: 7.7 x 4.8 x 5.6 cm, volume 108.2 mL. Parenchyma: The gland echotexture is heterogeneous. Thyroid vascularity is increased. Isthmus: 0.3 cm in maximum AP dimension. Estimated total number of nodules greater than or equal to 1 cm: 2. Certified Travel Counselor nodules are described as follows: 1. Location: Right superior. Size: 0.98 x 0.90 x 1.04 cm, volume 0.48 mL. Nodule characteristics: Composition: Solid (2). Echogenicity: Isoechoic (1). Shape: Not taller than wide (0). Margins: Lobulated (2). Echogenic Foci: None (0). ACR TI-RADS total points: 5 ACR TI-RADS category: 4 2. Location: Right superior/mid. Size: 0.91 x 0.96 x 0.81 cm, volume 0.37 mL. Nodule characteristics: Composition: Solid (2). Echogenicity: Isoechoic (1). Shape: Taller than wide (3). Margins: Lobulated (2). Echogenic Foci: None (0). ACR TI-RADS total points: 8 ACR TI-RADS category: 5 3. Location: Left. Size: 7.04 x 5.73 x 5.87 cm, volume 124 mL. Nodule characteristics: Composition: Solid (2). Echogenicity: Cannot be determined (1). Shape: Not taller than wide (0). Margins: Lobulated (2). Echogenic Foci: Punctate echogenic foci (3). ACR TI-RADS total points: 8 ACR TI-RADS category: 5 NODES: No lymphadenopathy is seen in the tissue surrounding the thyroid gland. US/US thyroid IMPRESSION: 1. Bilateral thyroid nodules are seen, as above. The 7.7 cm in maximal diameter left thyroid lobe nodule meets ACR biopsy criteria and is amenable to ultrasound-guided biopsy, if clinically indicated and not already performed. 2. There is an asymmetric goiter. 3. There is heterogeneous thyroid echotexture or increased vascularity, which can be associated with thyroiditis. [facility] Medical History (Updated 07/03/24 @ 13:45 by Ievlisse Prescott MD) Hypothyroidism Thyroid cancer Thyroid neoplasm Vitamin D deficiency Multinodular thyroid Surgical History Hx of total thyroidectomy Hx of partial thyroidectomy History of surgery Hx of lithotripsy Family History Father No known health problems Mother No known health problems Social History Alcohol intake: current Alcohol intake frequency: does not drink Patient Tobacco Use Status: Never used Tobacco Physical Exam Vital Signs: Last Vital Signs Pulse 66 11/08/24 10:33 BP 108/68 11/08/24 10:33 Pulse Ox 97 11/08/24 10:33 Oxygen Delivery Method Room Air 11/08/24 10:33 BMI result Body Mass Index 28.8 Assessment & Plan Assessment & Plan (1) Thyroid cancer: Code(s): C73 - Malignant neoplasm of thyroid gland Category: Medical Plan: 44-year-old male here today for follow 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 Margins were negative, no lymph nodes were assessed. AJCC stage I, pT3 a. JOHN initial intermediate risk of recurrence. Is post completion thyroidectomy 11/06/2021 with benign pathology. Status post radioactive iodine treatment with I 131 96.7 mCi 02/19/2022. His non stimulated TG levels have been undetectable with negative TG antibodies in the past, however levels done in June 2024 showed non stimulated TG level is to 3.7, which was concerning for possible thyroid cancer recurrence. Thyroglobulin antibodies remain negative., I recommended to do a diagnostic whole-body scan to look for any recurrence however when patient had blood work repeated at [facility] in August and September, TG levels came back undetectable at less than 0.1 with TG antibody less than 0.4. At this point these are reassuring plus Dr. Mary at [facility] did an ultrasound herself in September 2024 which did not show any abnormal lymph nodes. For now considered as excellent response to therapy with TSH goal 0.5-2. Plan: -continue levothyroxine 150 mcg daily -ordered TSH, free T4 TG and TG antibodies to be done now -ultrasound of the thyroid ordered 5 months from the last 1 in February 2025 with follow up in February 2025 after ultrasound (2) Hypothyroidism: Code(s): E03.9 - Hypothyroidism, unspecified Category: Medical Qualifiers: Hypothyroidism type: postoperative Qualified Code(s): E89.0 - Postprocedural hypothyroidism Plan: Currently excellent response to therapy with goal TSH 0.5-2 Plan: - levothyroxine 150 mcg daily -Ordered TSH, free T4 to be done now Plan I spent 30 minutes in reviewing the record, seeing the patient and documenting in the medical record. Orders: Orders US soft tiss head and/or neck 03/04/25 C73 - Malignant neoplasm of thyroid gland, E89.0 - Postprocedural hypothyroidism Coding Level of Care Code Est Pt Level 4 (01340) Complex EM visit Add On G2211 Diagnoses Thyroid cancer C73 Postoperative hypothyroidism E89.0 Hypothyroidism type: postoperative Time Spent (min) 30
--- OUTSIDE RECORDS SUMMARY | 2024-11-08 12:11 | XMS_ITS | Encounter Summary ---
Author Organization [employer] Address [address] [place] [address] Care Team Providers Care Manager Of Care Name Role Phone Starla Martinez [facility] Primary Care Provider [phone] Reason for Visit * Reason Onset Date Comments Nurse Triage 06/08/2023 Encounter Details Date Type Department Care Team ([facility] st Contact Info) Description 06/08/2023 Telephone [facility] [address], [place] [phone] [facility] [address], [place] [phone] Nurse Triage Social History Tobacco Use Types [...] No answer LVM to return call to [facility] triage line [phone]. Also left details with [facility] operating hours. * Telephone Encounter - Esther Horvath - 06/08/2023 8:45 AM EST Symptom: Abdominal Pain - Male Outcome: Schedule an urgent appointment (within 4 hours) or talk to a nurse or provider soon Reason: Getting worse The caller accepted this outcome Please contact pt at [phone] documented in this encounter Plan of Treatment Not on file documented as of this encounter Visit Diagnoses Not on filedocumented in this encounter Care Teams Manager Of Care Relationship Specialty Start Date End Date Starla Martinez FNP [address] [place] [id number] PCP - General Family Medicine 01/21/22 documented as of this encounter
== END 2024-11-08 11:05 | disposition home or self-care (01) ==
PROVIDERS: PCP Registered Nurse; Visit Provider Student in an Organized Health Care Education/Training Program
DX: C73 Malignant neoplasm of thyroid gland (principal); E89.0 Postprocedural hypothyroidism
CPT/HCPCS: 99214; G2211

== ENCOUNTER 2025-02-06 12:02 | Outpatient (AMB) | payer OTHER, SELFPAY ==
[2025-02-06 12:04] VITALS: BP 134/74; PULSE 78; O2SAT 96; BMI 28.9
--- NOTE | 2025-02-06 12:04 | MHC.OFFVIS ---
Vital Signs 02/06/25 12:04 Height 5 ft 6 in Weight 179 lb BMI 28.9 BP 134/74 Blood Pressure Location Rt brachial Position Sitting Pulse 78 Pulse Source Pulse Oximeter Pulse Oximetry (%) 96 Oxygen Delivery Method Room Air Intake Visit Reasons: [place] screening. R/S x1 - FMLA. Intake Note: New pt for initial colo screening. CC: Pt denies any GI sx or concerns at this time. Clinical Data Assistant Required: No Accompanied by: Self / Same As Patient Allergies No Known Allergies Allergy (Verified 02/06/25 12:04) HPI HPI [place] screening. R/S x1 - FMLA.: Details: 44 year old? male with past medical history of hypothyroidism, thyroid Ca is here today for pre colonoscopy screening.? Patient was sent to us by his PCP.? This is his first colonoscopy screening.? Patient denies any gastrointestinal symptoms in the past or at present.? Maternal uncle diagnosed with colorectal cancer.? Denies history of difficulty with sedation or anesthesia in the past.? Negative for history of sleep apnea.? Denies any history of cardiac, renal, pulmonary, or hepatic disease.?? No history of infectious? diseases like hepatitis A, B, C, HIV or tuberculosis.? [facility] is not [facility] any [facility]agulation [facility] History Hypothyroidism Thyroid cancer Thyroid neoplasm Vitamin D deficiency Multinodular thyroid Surgical History Hx of total thyroidectomy Hx of partial thyroidectomy History of surgery Hx of lithotripsy Family History (Updated 02/06/25 @ 12:09 by PITER Oliveira) Father No known health problems Mother No known health problems Maternal Uncle Colon cancer Social History Alcohol intake: current Alcohol intake frequency: does not drink Patient Tobacco Use Status: Never used Tobacco Review of Systems Const Denies weight gain and Denies weight loss ENT Reports no additional complaints, Denies dysphagia and Denies odynophagia Card Reports no additional complaints Resp Reports no additional complaints GI Denies abdominal pain, Denies belching, Denies melena, Denies bloating, Denies change in bowel habits, Denies dysphagia, Denies excessive flatus, Denies dyspepsia, Denies heartburn, Denies diarrhea, Denies loose stools, Denies nausea, Denies odynophagia and Denies vomiting Reports no additional complaints Musc Reports no additional complaints Neuro Reports no additional complaints Psych Reports no additional complaints Endo Reports no additional complaints Physical Exam Vital Signs: Last Vital Signs Pulse 78 02/06/25 12:04 BP 134/74 02/06/25 12:04 Pulse Ox 96 02/06/25 12:04 Oxygen Delivery Method Room Air 02/06/25 12:04 BMI result Body Mass Index 28.9 Const General: healthy appearing, no acute distress and well developed Nutritional Appearance: well nourished Orientation/consciousness: patient oriented x3 Resp Effort & Inspection: normal respiratory effort, able to speak in complete sentences, no tracheal deviation and symmetric chest movement Auscultation: clear to auscultation bilaterally Cardio Rate: regular rate GI Inspection: Yes normal to inspection and No distended Palpation (GI): Soft to palpation, not firm, nontender and No hepatosplenomegaly present Auscultation: normal bowel sounds General: Yes no CVA tenderness Back/Spine/Pelvis Back: no CVA tenderness Skin General skin exam: elasticity normal, turgor normal and dry skin Neuro General: patient oriented x3 Psych Appearance: grossly normal Mental Status: mental status grossly normal Assessment & Plan Assessment & Plan (1) Screen for colon cancer: Code(s): Z12.11 - Encounter for screening for malignant neoplasm of colon Plan Patient denies any GI, cardiac or respiratory symptoms.? Denies any issues with anesthesia in the past.? Denies any history of sleep apnea.? No history infectious diseases in the past or present.? Not on any anticoagulation therapy.? Family history of CRC.? Patient denies melena, hematochezia, unintentional weight loss or ribbon like stools.? Discussed at length the pre-procedure,? prep, diet & medications as well as what to expect prior, during and after the procedure.?? Stressed the importance of good bowel prep.? Recommended the use of Vaseline or Calmoseptine OTC & baby wipes with bowel movements to promote comfort.? ?Patient verbalizes understanding and agrees to plan of care.? He was given the opportunity to ask questions and all questions answered.? We will see him after the procedure.? Medications: New bisacodyl (Dulcolax (bisacodyl)) take 4 tabs at noon the day before your colonoscopy 20 mg (4 x 5 mg) PO ONCE 4 tabs 0RF constipation 1 day Z12.11 - Encounter for screening for malignant neoplasm of colon polyethylene glycol 3350 (Miralax) As directed by gastroenterology department at [facility] 238 grams PO ONCE 238 grams 0RF Z12.11 - Encounter for screening for malignant neoplasm of colon Coding Level of Care Code New Pt Level 3 (36081) Diagnoses Screen for colon cancer Z12.11 Time Spent (min) 40 Comment 30 minutes spent with patient and additional 10 minutes spent reviewing his records
--- OUTSIDE RECORDS SUMMARY | 2025-02-06 15:15 | XMS_ITS | Encounter Summary ---
Author Organization [employer] Address [address] [place] [phone] Care Team Providers Care C Application Developer Name Role Phone Starla Martinez DIRECTOR OF HEALTH CARE MARKETING Primary Care Provider [phone] Encounter Details Date Type Department Care Team (Latest Contact Info) Description 08/22/2018 Abstract [facility] CONVERSIONS Dental, Provider, DDS Social History Tobacco [...] on filedocumented in this encounter Care Teams C Application Developer Relationship Specialty Start Date End Date Starla Martinez FNP [address] [place] [id number] PCP - General Family Medicine 01/21/22 documented as of this encounter
--- OUTSIDE RECORDS SUMMARY | 2025-02-06 15:15 | XMS_ITS | Encounter Summary ---
Author Organization [employer] Address [address] [facility] 7 [place] [address] Care Team Providers Care Canvas Worker Name Role Phone Starla Martinez [facility] Primary Care Provider [phone] Reason for Visit * Reason Onset Date Comments Nurse Triage 03/19/2024 Encounter Details Date Type Department Care Team ([facility] st Contact Info) Description 03/19/2024 Telephone [facility] MEDICINE [address] [place], [place] [phone] Starla Martinez [facility] [address] [place], [place] [phone] Nurse Triage Social History Tobacco Use Types [...] up. Pt is offered to come to [facility] today but, declined. ASK apt [...] become worse * Telephone Encounter - Shantel Harriet - 03/19/2024 11:38 AM EDT Symptom: Ear [...] documented as of this encounter Care Teams Canvas Worker Relationship Specialty Start Date End Date Starla Martinez FNP [address] [place] [phone] PCP - General Family Medicine 01/21/22 documented as of this encounter
--- OUTSIDE RECORDS SUMMARY | 2025-02-06 15:15 | XMS_ITS | Encounter Summary ---
Author Organization [employer] Address 75 [facility] 7 [place] [address] Care Team Providers Care Mgmt Consultant Name Role Phone Starla Martinez [facility] Primary Care Provider [phone] Reason for Visit * Reason Onset Date Comments Nurse Triage 06/08/2023 Encounter Details Date Type Department Care Team ([facility] st Contact Info) Description 06/08/2023 Telephone [facility] MEDICINE [address] [place], [place] [phone] [facility] 230 [place], [place] [phone] Nurse Triage Social History Tobacco Use Types [...] No answer LVM to return call to [facility] triage line [phone]. Also left details with [facility] operating hours. * Telephone Encounter - Esther Horvath - 06/08/2023 8:45 AM EST Symptom: Abdominal Pain - Male Outcome: Schedule an urgent appointment (within 4 hours) or talk to a nurse or provider soon Reason: Getting worse The caller accepted this outcome Please contact pt at [phone] documented in this encounter Plan of Treatment Not on file documented as of this encounter Visit Diagnoses Not on filedocumented in this encounter Care Teams Mgmt Consultant Relationship Specialty Start Date End Date Starla Martinez FNP [address] [place] [phone] PCP - General Family Medicine 01/21/22 documented as of this encounter
--- OUTSIDE RECORDS SUMMARY | 2025-02-06 15:15 | XMS_ITS | Clinical Summary ---
Author Organization [employer] Address [address] [facility] 7t [place] [address] Care Team Providers Care General Agent Name Role Phone Starla Martinez [facility] Primary Care Provider [phone] Allergies No known active allergies Medications levothyroxine [...] neck down once daily 80 g 1 5 Active Active Problems Problem Noted Date Diagnosed [...] daily. TSH is at goal. Followed by [facility] Dr. Adams Seasonal allergic rhinitis 09/06/2016 Overweight (BMI 25.0-29.9) 09/06/2016 Encounters Date Type Department Care Team Description 11/08/2024 Orders Only GENERIC EXTERNAL DATA DEPARTMENT Provider, [...] 66 08/10/2024 11:15 AM EDT Temperature 36.7 C (98 F) 08/10/2024 11:15 AM EDT Respiratory Rate 17 [...] 1979 FIT 1979 FOBT 1979 Sigmoidoscopy 1979 Alcohol/Substance Use Screening 1991 Family Planning (PISQ) 1994 HPV Vaccines (1 - Male 3-dose series) 1994 DTaP/Tdap/Td Vaccines (1 - Tdap) 09/28/2016 09/27/2016, 09/27/2016 IPV Vaccines (2 of 3 - Adult catch-up series) 08/20/2024 07/23/2024 SDOH Screening 08/23/2024 08/24/2023 Hepatitis B Vaccines (2 of 2 - CpG 2-dose series) 08/24/2024 07/27/2024 COVID-19 Vaccine (3 - season) 2025 09/18/2020, 08/27/2020 Influenza Vaccine (#1) 2025 07/21/2024 Depression Screening 05/07/2025 05/07/2024, 05/07/20 24 Disability Screening 08/10/2025 08/10/2024 Tobacco Screening 08/13/2025 08/13/2024 Zoster Vaccines (1 [...] patient's age to complete this topic Meningococcal B Vaccine Aged Out No l onger eligible based on patient's age to complete this topic Meningococcal Vaccine Aged Out No armida philipp eligible based on patient's age to complete this topic Pneumococcal Vaccine: Pediatrics (0 to 5 Years) and At-Risk Patients (6 to 49) Years Aged Out No longer eligible based on patient's age to complete this topic RSV under 20 months Aged Out No longe r eligible based on patient's age to complete this topic Rotavirus Vaccines Aged Out No longer eligible based on patient's age to complete this topic Procedures Procedure Name Priority Date/Time Associated Diagnosis Comments THYROGLOBULIN, TUMOR MARKER W/REFLEX Routine 11/08/2024 11:30 AM EDT THYROGLOBULIN ANTIBODIES Routine 11/08/2024 11:30 AM EDT THYROGLOBULIN, LC/MS/MS Routine 11/08/2024 11:30 AM EDT TSH Routine 11/08/2024 11:30 AM EDT T4, FREE Routine 11/08/2024 11:30 AM EDT HEMOGLOBIN A1C Routine 11/08/2024 11:30 AM EDT Elevated fasting blood sugar LIPID PANEL, STANDARD Routine 08/10/2024 11:43 AM EDT Healthcare maintenance ZZZ HISTORICAL HEPATITIS C AB W/REFL TO HCV RNA, QN, PCR Routine 08/11/2021 3:10 PM EDT HIV 1/2 ANTIGEN/ANTIBODY, FOURTH GENERATION W/RFL Routine 08/11/2021 3:10 PM EDT from Last 3 Months or Most Recently Relevant to Health Maintenance Results * (ABNORMAL) Thyroglobulin, LC/MS/MS (11/08/2024 11:30 AM EDT) Thyroglobulin, LC/MS/MS <0.1(A) ng/mL [facility] Comment:Reference Range: Int act Thyroid 2.8-40.9 Athyrotic <0.1 Note: Abnormal flagging is based on the reference interval for patients with intact thyroid.This test was performed using the [place]terchemiluminescent method. Values obtained fromdifferent assay methods cannot be usedinterchangeably. Thyroglobulin levels, regardlessof value, should not be interpreted as absoluteevidence of the presence or absence of disease. Thyroglobulin Comment See Below [facility] Comment:Thyroglobulin antibo dies (TGAB) interfere withthyroglobulin (TG) assays; therefore, TGAB assayshould always be performed in conjunction with aTG assay.For additional information, please refer tohttp://education.Brandfitters/faq/VNT224(This link is being provided for informational/educational purposes only.)THIS TEST WAS PERFORMED AT:[facility] [place] [id number] GONSALVES MD 11/08/2024 11:3 0 AM EDT 11/08/2024 11:30 AM EDT us Generic External Data Provider LAB BLOOD ORDERAB LES Final Result [facility] [address] [place] [phone] * Thyroblobulin, Tumor Marker w/Reflex (11/08/2024 11:30 AM EDT) Thyroglobulin Antibody <1 <=1 IU/mL [facility] Comment:This Thyroglobulin a ntibody test was performedusing the [place] Chemiluminescent method.Values obtained from different assay methods cannot beused interchangeably. Thyroglobulin antibody levels,regardless of value, should not be interpreted asabsolute evidence of the presence or absence ofdisease. Thyroglobulin, LC/MS/MS TNP [facility] Thyroglobulin Level <0.1 ng/mL [facility] Comment:Reference Range: Ath yrotic: <0.1 ng/mLReference range applies to differentiated thyroidcancer patients following treatment. The presence ofmeasurable thyroglobulin indicates the presence ofthyroglobulin-producing thyroid tissue. Clinicalcorrelation is advised.This Thyroglobulin test was performed using theTagMan [place] Chemiluminescent method. Valuesobtained from different assay methods cannot beused interchangeably. Thyroglobulin levels, regardlessof value, should not be interpreted as absoluteevidence of the presence or absence of disease.THIS TEST WAS PERFORMED AT:[id number] [place] [id number] MOCTEZUMA MD,PHD 11/08/2024 11:3 0 AM EDT 11/08/2024 11:30 AM EDT Generic External Data Provider LAB BLOOD ORDERAB LES Final Result Performing Organization Address [facility] Co de Phone Number [facility] [address] [place] [phone] * Thyroglobulin Antibodies (11/08/2024 11:30 AM EDT) Thyroglobulin Antibodies <1 < or = 1 IU/mL [facility] Comment:THIS TEST WAS PERFOR MED AT:[facility] [address] [id number] GONSALVES MD 11/08/2024 11:3 0 AM EDT 11/08/2024 11:30 AM EDT Generic External Data Provider LAB BLOOD ORDERAB LES Final Result Performing Organization Address [facility]/ZIP Co de Phone Number [facility] [address] [place] [phone] * (ABNORMAL) TSH (11/08/2024 11:30 AM EDT) Thyroid Stimulating Hormone 0.04(L) 0.32 - 4.0 uIU/mL [facility] Comment:TSH 3rd Generation ( [facility]) 11/08/2024 11:3 0 AM EDT 11/08/2024 11:30 AM EDT Generic External Data Provider LAB BLOOD ORDERAB LES Final Result Performing Organization Address [facility] Co de Phone Number [facility] [address] [place] [phone] * T4, Free (11/08/2024 11:30 AM EDT) Free T4 (Free Thyroxine) 1.44 0.71 - 1.85 ng/dL [facility] 11/08/2024 11:3 0 AM EDT 11/08/2024 11:30 AM EDT Generic External Data Provider LAB BLOOD ORDERAB LES Final Result Performing Organization Address [facility] de Phone Number [facility] [address] [place] [phone] * Hemoglobin A1c (11/08/2024 11:30 AM EDT) Hemoglobin A1c 5.4 <6.0 % [facility] Comment:Hemoglobin A1C Refer ence Range Adults: 4.8 - 6.0 % Non diabetic: < 6.0 % Goal: < 7.0 %Additional Action Suggested: > 8.0 %Note: Hemoglobin A1c results are invalid for patients with abnormal amounts of HbF. Blood transfusions may impact the HbA1c concentration in the patient sample. Estimated Average Glucose 108 mg/dL [facility] Comment:eAG = Estimated ave rage glucose which is %A1C expressed asaverage glucose, using the formula of the W8E-FtofqwnMyukeqd Glucose study (ADAG), Diabetes Care, Vol.31,#8,2007 Blood Venous blood specimen / Unknown 11/08/2024 11:30 AM EDT 11/08/2024 11:30 AM EDT [facility] LAB BLOOD ORDERABLES Final Re sult Performing Organization Address [facility]/ZIP Co de Phone Number [facility] [address] [place] [phone] * (ABNORMAL) Lipid Panel, Standard (08/10/2024 11:43 AM EDT) Triglycerides 214(H) <150 mg/dL [facility] Comment:Desirable Triglyceri de: less than 150 mg/dLBorderline High Triglyceride 150-199 mg/dLHigh Triglyceride: 200-499 mg/dLVery High Triglyceride: greater than or equal to 5OO mg/dL Cholesterol 215(H) <200 mg/dL [facility] Comment:Desirable Cholestero l: less than 200 mg/dLBorderline High Cholesterol: 200-239 mg/dLHigh Cholesterol: greater than 239 mg/dL LDL Cholesterol Calculated 135(H) <100 mg/dL [facility] Comment:Desirable LDL: less than 100 mg/dLNear Optimal/Above Optimal LDL: 110- 129 mg/dLBorderline High LDL: 130-159 mg/dLHigh LDL: 160-189 mg/dLVery High LDL: greater than or equal to 190 mg/dL HDL Cholesterol 38(L) >40 mg/dL [facility] Comment:Desirable HDL: great er than 40 mg/dL Note: This HDL assay may give artificially low results in patients with liver disease. Blood Venous blood specimen / Unknown 08/10/2024 11:43 AM EDT 08/10/2024 1:32 PM EDT [facility] LAB BLOOD ORDERABLES Final Re sult Performing Organization Address City/[facility]/ZIP Co de Phone Number [facility] [address] [place] [phone] * HEPATITIS C AB W/REFL TO HCV RNA, QN, PCR (08/11/2021 3:10 PM EDT) HEPATITIS C ANTIBODY NON-REACT SREEKANTH NON-REACT SREEKANTH [facility] INDEX 0.01 <1.00 [facility] Comment: HCV antibody was non-reactive. There is no laboratory evidence of HCV infection. In most cases, no further action is required. However, if recent HCV exposure is suspected, a test for HCV RNA (test code 14905) is suggested. For additional information please refer to http://[employer].Brandfitters/faq/QGF08v2 (This link is being provided for informational/ educational purposes only.) 08/11/2021 3:10 PM EDT us Tamiko Cox NP HISTORICAL/NON ORDERABLE LABS F inal Result Performing Organization Address [facility] Co de Phone Number [facility] [address] [place] [address], * HIV 1/2 ANTIGEN/ANTIBODY,FOURTH GENERATION W/RFL (08/11/2021 3:10 PM EDT) HIV-1/2 ANTIGEN AND ANTIBODIES, 4TH GENERATION W/ REFLEX NON-REACT SREEKANTH NON-REACT SREEKANTH [facility] Comment: HIV-1 antigen and HIV-1/HIV-2 antibodies were not detected. There is no laboratory evidence of HIV infection. PLEASE NOTE: This information has been disclosed to you from records whose confidentiality may be protected by state law. If your state requires such protection, then the state law prohibits you from making any further disclosure of the information without the specific written consent of the person to whom it pertains, or as otherwise permitted by law. A general authorization for the release of medical or other information is NOT sufficient for this purpose. For additional information please refer to http://[employer].docBeat/faq/TLI149 (This link is being provided for informational/ educational purposes only.) The performance of this assay has not been clinically validated in patients less than 2 years old. 08/11/2021 3:10 PM EDT us Tamiko Cox NP LAB BLOOD ORDERABLES Final Resu lt Performing Organization Address City/[facility]/ZIP Co de Phone Number [facility] [address] [place] [address], from Last 3 Months or Most Recently Relevant to Health Maintenance Insurance [facility] [place] [id number] Care Teams General Agent Relationship Specialty Start Date End Date Starla Martinez FNP [address] [place] [phone] PCP - General Family Medicine 01/21/22
== END 2025-02-06 12:31 | disposition home or self-care (01) ==
LOC: HO.HGI 12:02
PROVIDERS: PCP Registered Nurse; Visit Provider Nurse Practitioner Family
DX: Z01.818 Encounter for other preprocedural examination (principal); Z12.11 Encounter for screening for malignant neoplasm of colon
CPT/HCPCS: S0285

== ENCOUNTER 2025-03-15 15:26 | Outpatient (REF) | payer OTHER, SELFPAY ==
--- NOTE | ~2025-03-15 | US_ITS ---
EXAMINATION: US THYROID CLINICAL INFORMATION: Thyroid cancer pst thyroidectomy. COMPARISON: Previous exams most recent June 2024 and July 2022 TECHNIQUE: Linear transducer morel-scale and color Doppler examination with attention to the region of the thyroid. FINDINGS: The thyroid gland has been removed. No residual thyroid tissue or nodule seen. NODES: Comparison of lymph nodes with prior exam is difficult. There is a 0.9 x 0.5 x 1.1 cm right level 2 lymph node. This has normal ultrasound morphology and normal central hilar flow. This measured 1.2 x 0.5 x 1 cm on prior exam and may be slightly decreased in size. There is a 1 x 0.5 x 0.8 cm right level 2 lymph node. This is diffusely hypoechoic with loss of normal echogenic fatty hilum. This demonstrates central hilar flow. This was not appreciated on prior exam. There is a 0.7 x 0.3 x 0.3 cm right level 3 lymph node. This is normal ultrasound morphology and flow. It is uncertain whether this represents prior identified right level 3 lymph node with more echogenic fatty hilum compared to prior exam. There is a 0.7 x 0.3 x 0.5 cm left level 1B lymph node. This has normal ultrasound morphology and flow. This measured 0.8 x 4 x 0.6 cm on prior exam and not appreciably changed. There is a 1.1 x 0.4 x 0.7 cm left level 2 lymph node. This has normal ultrasound morphology and flow. This measured 0.9 x 0.4 x 0.6 cm on prior exam and may be slightly increased in size. There is a 1.1 x 0.3 x 0.7 cm left cervical lymph node. This has normal ultrasound morphology and flow. This measured 1.1 x 0.3 x 0.5 cm on prior exam and recently changed. US/US soft tiss head and/or neck IMPRESSION: 1 x 0.5 x 0.8 cm abnormal-appearing right level 2 lymph node that is diffusely hypoechoic with loss of echogenic fatty hilum. Otherwise normal appearing bilateral cervical lymph nodes. Electronically signed by: Betty Mcclure MD 03/15/2025 05:05 PM EDT
== END 2025-03-15 15:27 | disposition home or self-care (01) ==
LOC: HO.US 15:26
PROVIDERS: PCP Registered Nurse; Visit Provider Student in an Organized Health Care Education/Training Program
DX: E89.0 Postprocedural hypothyroidism (principal); C73 Malignant neoplasm of thyroid gland
CPT/HCPCS: 76536

== ENCOUNTER → 2025-03-15 15:29 | Outpatient (BNV) | payer OTHER, SELFPAY | PROVIDERS: PCP Registered Nurse; Visit Provider Radiology Diagnostic Radiology | DX: E89.0 Postprocedural hypothyroidism (principal) | CPT/HCPCS: 76536 ==

== ENCOUNTER 2025-03-20 13:32 | Outpatient (REF) | payer OTHER, SELFPAY ==
[2025-03-20 15:33] LABS: Free T4 (Free Thyroxine) 1.30 ng/dL (0.71-1.85); Thyroid Stimulating Hormone 0.70 uIU/mL (0.32-4.0)
--- OUTSIDE RECORDS SUMMARY | 2025-03-20 19:16 | XMS_ITS | Encounter Summary ---
Author Organization [employer] Address [address] [facility] 7 h Floor [place] [phone] Care Team Providers Care Driller Portable Name Role Phone Starla Martinez CLICKER OPERATOR Primary Care Provider [phone] Encounter Details Date Type Department Care Team (Latest Contact Info) Description 08/22/[address] [facility] CONVERSIONS Dental, Provider, DDS Social History [...] on filedocumented in this encounter Care Teams Driller Portable Relationship Specialty Start Date End Date Starla Martinez FNP [address] [place] [phone] PCP - General Family Medicine 01/21/22 documented as of this encounter
--- OUTSIDE RECORDS SUMMARY | 2025-03-20 19:16 | XMS_ITS | Encounter Summary ---
Author Organization [employer] Address 75 [facility] 7 [place] [address] Care Team Providers Care Sewer Hand Name Role Phone Starla Martinez [facility] Primary Care Provider [phone] Reason for Visit * Reason Onset Date Comments Nurse Triage 06/08/2023 Encounter Details Date Type Department Care Team ([facility] st Contact Info) Description 06/08/2023 Telephone [facility] MEDICINE [address] [place], [place] [phone] [facility] [address] [place], [place] [phone] Nurse Triage Social History Tobacco Use Types [...] No answer LVM to return call to [facility] triage line [phone]. Also left details with [facility] operating hours. * Telephone Encounter - Esther Horvaht - 06/08/2023 8:45 AM EST Symptom: Abdominal Pain - Male Outcome: Schedule an urgent appointment (within 4 hours) or talk to a nurse or provider soon Reason: Getting worse The caller accepted this outcome Please contact pt at [phone] documented in this encounter Plan of Treatment Not on file documented as of this encounter Visit Diagnoses Not on filedocumented in this encounter Care Teams Sewer Hand Relationship Specialty Start Date End Date Starla Martinez FNP [address] [place] [phone] PCP - General Family Medicine 01/21/22 documented as of this encounter
--- OUTSIDE RECORDS SUMMARY | 2025-03-20 19:16 | XMS_ITS | Clinical Summary ---
Author Organization [employer] Address [address] [facility] [address] [place] [address] Care Team Providers Care Cone Machine Operator Name Role Phone Starla Martinez [facility] Primary Care Provider [phone] Allergies No known active allergies Medications levothyroxine [...] daily. TSH is at goal. Followed by [facility] Dr. Adams Seasonal allergic rhinitis 09/06/2016 Overweight (BMI 25.0-29.9) 09/06/2016 Encounters Date Type Department Care Team Description 03/15/2025 Orders Only [facility] External Provider, [facility] from Last 3 Months Family History [...] Comments US HEAD NECK SOFT TISSUE Routine 03/15/2025 3:45 PM EDT LIPID PANEL, STANDARD Routine 08/10/2024 11:43 AM EDT Healthcare maintenance ZZZ HISTORICAL HEPATITIS C AB W/REFL TO HCV RNA, QN, PCR Routine 08/11/2021 3:10 PM EDT HIV 1/2 ANTIGEN/ANTIBODY, FOURTH GENERATION W/RFL Routine 08/11/2021 3:10 PM EDT from Last 3 Months or Most Recently Relevant to Health Maintenance Results * US Head Neck Soft Tissue (03/15/2025 3:45 PM EDT) Anatomical Region Laterality Modality Head, Neck Ultrasound 03/15/2025 3:45 PM EDT Narrative 03/15/2025 5:07 PM EDT [place] [address] Ultrasound Report Signed Patient: Alexandr Jack MR#: [id number] : 1980 Acct:[id number] Age/Sex: 44 / M ADM Date: 03/15/25 Loc: HO.US Attending Dr: Ivelisse Prescott MD Ordering Physician: Ivelisse Prescott MD Date of Service: 03/15/25 Procedure(s): US soft tiss head and/or neck Accession Number(s): [id number] cc: Ivelisse Prescott MD; [facility] Reason for Exam: E89.0 - Postprocedural hypothyroidism EXAMINATION: US THYROID CLINICAL INFORMATION: Thyroid cancer pst thyroidectomy. COMPARISON: Previous exams most recent June 2024 and July 2022 TECHNIQUE: Linear transducer morel-scale and color Doppler examination with attention to the region of the thyroid. FINDINGS: The thyroid gland has been removed. No residual thyroid tissue or nodule seen. NODES: Comparison of lymph nodes with prior exam is difficult. There is a 0.9 x 0.5 x 1.1 cm right level 2 lymph node. This has normal ultrasound morphology and normal central hilar flow. This measured 1.2 x 0.5 x 1 cm on prior exam and may be slightly decreased in size. There is a 1 x 0.5 x 0.8 cm right level 2 lymph node. This is diffusely hypoechoic with loss of normal echogenic fatty hilum. This demonstrates central hilar flow. This was not appreciated on prior exam. There is a 0.7 x 0.3 x 0.3 cm right level 3 lymph node. This is normal ultrasound morphology and flow. It is uncertain whether this represents prior identified right level 3 lymph node with more echogenic fatty hilum compared to prior exam. There is a 0.7 x 0.3 x 0.5 cm left level 1B lymph node. This has normal ultrasound morphology and flow. This measured 0.8 x 4 x 0.6 cm on prior exam and not appreciably changed. There is a 1.1 x 0.4 x 0.7 cm left level 2 lymph node. This has normal ultrasound morphology and flow. This measured 0.9 x 0.4 x 0.6 cm on prior exam and may be slightly increased in size. There is a 1.1 x 0.3 x 0.7 cm left cervical lymph node. This has normal ultrasound morphology and flow. This measured 1.1 x 0.3 x 0.5 cm on prior exam and recently changed. US/US soft tiss head and/or neck IMPRESSION: 1 x 0.5 x 0.8 cm abnormal-appearing right level 2 lymph node that is diffusely hypoechoic with loss of echogenic fatty hilum. Otherwise normal appearing bilateral cervical lymph nodes. Electronically signed by: Betty Mcclure MD 03/15/2025 05:05 PM EDT RP Dictated By: Betty Mcclure MD Signed By: <Electronically signed by Betty Mcclure MD in OV> 03/15/25 1705 DD/ 1545 TD/TT: 03/15/25 1600 Cupola Patcher: YAMILEX Procedure Note Donotuseinterpreter, Image - 03/15/[address] [address] Ultrasound Report Signed Patient: Xochilt Jack#: [id number] : 1980Acct:[id number] Age/Sex: 44 / MADM Date: 03/15/25 Loc: HO.US Attending Dr: Ivelisse Prescott MD Ordering Physician: Ivelisse Prescott MD Date of Service: 03/15/25 Procedure(s): US soft tiss head and/or neck Accession Number(s): [id number] cc: Ivelisse Prescott MD; [facility] Reason for Exam: E89.0 - Postprocedural hypothyroidism EXAMINATION: US THYROID CLINICAL INFORMATION: Thyroid cancer pst thyroidectomy. COMPARISON: Previous exams most recent June 2024 and July 2022 TECHNIQUE: Linear transducer morel-scale and color Doppler examination with attention to the region of the thyroid. FINDINGS: The thyroid gland has been removed. No residual thyroid tissue or nodule seen. NODES: Comparison of lymph nodes with prior exam is difficult. There is a 0.9 x 0.5 x 1.1 cm right level 2 lymph node. This has normal ultrasound morphology and normal central hilar flow. This measured 1.2 x 0.5 x 1 cm on prior exam and may be slightly decreased in size. There is a 1 x 0.5 x 0.8 cm right level 2 lymph node. This is diffusely hypoechoic with loss of normal echogenic fatty hilum. This demonstrates central hilar flow. This was not appreciated on prior exam. There is a 0.7 x 0.3 x 0.3 cm right level 3 lymph node. This is normal ultrasound morphology and flow. It is uncertain whether this represents prior identified right level 3 lymph node with more echogenic fatty hilum compared to prior exam. There is a 0.7 x 0.3 x 0.5 cm left level 1B lymph node. This has normal ultrasound morphology and flow. This measured 0.8 x 4 x 0.6 cm on prior exam and not appreciably changed. There is a 1.1 x 0.4 x 0.7 cm left level 2 lymph node. This has normal ultrasound morphology and flow. This measured 0.9 x 0.4 x 0.6 cm on prior exam and may be slightly increased in size. There is a 1.1 x 0.3 x 0.7 cm left cervical lymph node. This has normal ultrasound morphology and flow. This measured 1.1 x 0.3 x 0.5 cm on prior exam and recently changed. US/US soft tiss head and/or neck IMPRESSION: 1 x 0.5 x 0.8 cm abnormal-appearing right level 2 lymph node that is diffusely hypoechoic with loss of echogenic fatty hilum. Otherwise normal appearing bilateral cervical lymph nodes. Electronically signed by: Betty Mcclure MD 03/15/2025 05:05 PM EDT Dictated By: Betty Mcclure MD Signed By: <Electronically signed by Betty Mcclure MD in OV> 03/15/25 1705 DD/ 1545 TD/TT: 03/15/25 1600 Cupola Patcher: YAMILEX us [facility] External Provider IMG US PROCEDURES Final Result * (ABNORMAL) Lipid Panel, Standard (08/10/2024 11:43 AM EDT) Triglycerides 214(H) <150 mg/dL [facility] Comment:Desirable Triglyceri de: less than 150 mg/dLBorderline High Triglyceride 150-199 mg/dLHigh Triglyceride: 200-499 mg/dLVery High Triglyceride: greater than or equal to 5OO mg/dL Cholesterol 215(H) <200 mg/dL [facility] Comment:Desirable Cholestero l: less than 200 mg/dLBorderline High Cholesterol: 200-239 mg/dLHigh Cholesterol: greater than 239 mg/dL LDL Cholesterol Calculated 135(H) <100 mg/dL [facility] Comment:Desirable LDL: less than 100 mg/dLNear Optimal/Above Optimal LDL: 110- 129 mg/dLBorderline High LDL: 130-159 mg/dLHigh LDL: 160-189 mg/dLVery High LDL: greater than or equal to 190 mg/dL HDL Cholesterol 38(L) >40 mg/dL [facility] Comment:Desirable HDL: great er than 40 mg/dL Note: This HDL assay may give artificially low results in patients with liver disease. Blood Venous blood specimen / Unknown 08/10/2024 11:43 AM EDT 08/10/2024 1:32 PM EDT [facility] B[facility] Final Re sult Performing Organization Address [facility] Co de Phone Number [facility] [address] [place] [address] [phone] * HEPATITIS C AB W/REFL TO HCV RNA, QN, PCR (08/11/2021 3:10 PM EDT) HEPATITIS C ANTIBODY NON-REACT SREEKANTH NON-REACT SREEKANTH [facility] INDEX 0.01 <1.00 [facility] Comment: HCV antibody was non-reactive. There is no laboratory evidence of HCV infection. In most cases, no further action is required. However, if recent HCV exposure is suspected, a test for HCV RNA (test code 82132) is suggested. For additional information please refer to http://education.[employer]/faq/DVU22s4 (This link is being provided for informational/ educational purposes only.) 08/11/2021 3:10 PM EDT Tamiko Cox ELECTRICAL TEST ENGINEER HISTORICAL/NON ORDERABLE LABS F inal Result Performing Organization Address City/[facility]/ZIP Co de Phone Number [facility] [address] * HIV 1/2 ANTIGEN/ANTIBODY,FOURTH GENERATION W/RFL [...] purpose. For additional information please refer to http://education.[employer]/faq/BHR810 (This link is being provided for informational/ educational purposes only.) The performance of this assay has not been clinically validated in patients less than 2 years old. 08/11/2021 3:10 PM EDT us Tamiko Cox NP LAB BLOOD ORDERABLES Final Resu lt [facility] [address] from Last 3 Months or Most Recently Relevant to Health Maintenance Insurance [facility] [place] [id number] [facility] RHONDA DENG [id number] Care Teams Cone Machine Operator Relationship Specialty Start Date End Date RogersStarla FNP [address] [place] [id number] PCP - General Family Medicine 01/21/22
--- OUTSIDE RECORDS SUMMARY | 2025-03-20 19:16 | XMS_ITS | Encounter Summary ---
Author Organization [employer] Address [address] [facility] 7t [place] [address] Care Team Providers Care Radio Time Buyer Name Role Phone Starla Martinez USER INTERFACE ENGINEER Primary Care Provider [phone] Encounter Details Date Type Department Care Team (Late st Contact Info) Description 03/15/2025 Orders Only [facility] External Provider, [facility] Social History Tobacco Use Types Packs/Day [...] SOFT TISSUE Routine 03/15/2025 3:45 PM EDT documented in this encounter Results * US Head Neck Soft Tissue (03/15/2025 3:45 PM EDT) Anatomical Region Laterality Modality Head, Neck Ultrasound 03/15/2025 3:45 PM EDT Narrative 03/15/2025 5:07 PM EDT [place] [address] Ultrasound Report Signed Patient: Alexandr Jack MR#: [id number] : 1980 Acct:[id number] Age/Sex: 44 / M ADM Date: 03/15/25 Loc: HO.US Attending Dr: Ivelisse Prescott MD Ordering Physician: Ivelisse Prescott MD Date of Service: 03/15/25 Procedure(s): US soft tiss head and/or neck Accession Number(s): [id number] cc: Ivelisse Prescott MD; [facility] Reason for Exam: E89.0 - Postprocedural hypothyroidism [...] 03/15/25 1705 DD/ 1545 TD/TT: 03/15/25 1600 Sports Physiotherapist: YAMILEX Procedure Note Donotuseinterpreter, Image - 03/15/[address] [address] Ultrasound Report Signed Patient: Xochilt Jack#: [id number] : 1980Acct:[id number] Age/Sex: 44 / MADM Date: 03/15/25 Loc: HO.US Attending Dr: Ivelisse Prescott MD Ordering Physician: Ivelisse Prescott MD Date of Service: 03/15/25 Procedure(s): US soft tiss head and/or neck Accession Number(s): [id number] cc: Ivelisse Prescott MD; [facility] Reason for Exam: E89.0 - Postprocedural hypothyroidism [...] 03/15/25 1705 DD/ 1545 TD/TT: 03/15/25 1600 Sports Physiotherapist: YAMILEX [facility] External Provider IMG US PROCEDURES Final Result documented in this encounter Visit Diagnoses Not on filedocumented in this encounter Additional Health Concerns Assessment Noted Time PHQ-9 Depression Total Score: 0 05/07/20 24 2:26 PM EST documented as of this encounter Care Teams Radio Time Buyer Relationship Specialty Start Date End Date Starla Martinez FNP [address] [place] [address] PCP - General Family Medicine 01/21/22 documented as of this encounter
--- OUTSIDE RECORDS SUMMARY | 2025-03-20 19:16 | XMS_ITS | Encounter Summary ---
Author Organization [employer] Address [address] [facility] 7 [place] [address] Care Team Providers Care Patrol Officer Name Role Phone Starla Martinez [facility] Primary Care Provider [phone] Reason for Visit * Reason Onset Date Comments Nurse Triage 03/19/2024 Encounter Details Date Type Department Care Team ([facility] st Contact Info) Description 03/19/2024 Telephone [facility] [address] [place], [place] [phone] Starla Martinez [facility] [address] [place], [place] [phone] Nurse Triage Social History Tobacco Use Types [...] up. Pt is offered to come to [facility] today but, declined. ASK apt with [...] documented as of this encounter Care Teams Patrol Officer Relationship Specialty Start Date End Date Starla Martinez FNP [address] [place] [id number] PCP - General Family Medicine 01/21/22 documented as of this encounter
== END 2025-03-20 13:33 | disposition home or self-care (01) ==
LOC: HO.LAB 13:32
PROVIDERS: Student in an Organized Health Care Education/Training Program; PCP Registered Nurse; Visit Provider Student in an Organized Health Care Education/Training Program
DX: C73 Malignant neoplasm of thyroid gland (principal); E89.0 Postprocedural hypothyroidism
CPT/HCPCS: 36415; 84439; 84443

== ENCOUNTER 2025-04-02 10:59 | Outpatient (REF) | payer OTHER, SELFPAY ==
[2025-04-02 14:49] LABS: Prostate Specific Antigen 0.44 ng/mL (<0.05-4.0)
== END 2025-04-02 11:00 | disposition home or self-care (01) ==
LOC: HO.LAB 10:59
PROVIDERS: PCP Registered Nurse; Visit Provider Nurse Practitioner Family
DX: Z12.5 Encounter for screening for malignant neoplasm of prostate (principal)
CPT/HCPCS: 36415; 84153

== ENCOUNTER 2025-04-04 13:33 | Outpatient (AMB) | payer OTHER, SELFPAY ==
--- NOTE | 2025-04-04 13:34 | MHC.OFFVIS ---
Intake Visit Reasons: 1y/PSA/PVR Intake Note: Patient is present for 1Y/PSA/PVR Urology Medication:NONE Antibiotic Allergy:NONE Blood Thinner:NONE Last PVR:0ML'S Todays PVR:24ML'S Cable Stretcher And Tester Required: No Allergies No Known Allergies Allergy (Verified 04/04/25 14:15) Medication List - Last Reconciled 04/04/25 by JORGE L Rincon levothyroxine 137 mcg PO DAILY HPI Comments Details: Alexandr is a pleasant 44 year old male patient of Dr. Martinez. He has a past medical history of vitamin-D deficiency and thyroid cancer status post thyroidectomy. He presents to the office today for follow-up his ongoing lower urinary tract symptoms. In discussion with the patient today he reports since his last office visit here he has had no bothersome urinary issues or concerns. Patient with a previous history of ongoing intermittent lower urinary tract symptoms of bladder pressure however he feels this has significantly improved. He currently denies any bothersome urinary issues or concerns. In office urinalysis results reviewed with the patient today. PVR 24 mL. Previous workup has included a retroperitoneal ultrasound 08/20 noting bilateral kidneys with no calculi, lesions, and or hydronephrosis noted. The bladder is well distended and normal. Prostate volume is approximately 50 mL. Normal retroperitoneal ultrasound study. He currently denies any bothersome urinary issues or concerns. PSAs are as follows: 01/19 0.5, 04/23 0.4 He otherwise offers no other issues or concerns at this time. [facility] Medical History Hypothyroidism Thyroid cancer Thyroid neoplasm Vitamin D deficiency Multinodular thyroid Surgical History Hx of total thyroidectomy Hx of partial thyroidectomy History of surgery Hx of lithotripsy Family History (Updated 02/06/25 @ 12:09 by PITER Oliveira) Father No known health problems Mother No known health problems Maternal Uncle Colon cancer Social History Alcohol intake: current Alcohol intake frequency: does not drink Patient Tobacco Use Status: Never used Tobacco Review of Systems Const All systems reviewed & are unremarkable except as noted in HPI and below Physical Exam Const General: cooperative, healthy appearing, comfortable, no acute distress, well developed, alert and awake Nutritional Appearance: average body habitus Orientation/consciousness: patient oriented x3 Limitations: no limitations HEENT Head: Yes normal to inspection, Yes normocephalic and Yes atraumatic Ears: hearing grossly normal bilaterally Eyes General: appearance normal, both eyes and all related structures Neck Neck: Yes normal visual inspection and Yes trachea midline Chest Chest palpation & inspection: normal inspection of the chest Resp Effort & Inspection: able to speak in complete sentences Cardio Rate: regular rate GI Inspection: Yes normal to inspection General: Yes no CVA tenderness Back/Spine/Pelvis Back: no CVA tenderness Skin General skin exam: no rashes or lesions noted Neuro General: patient oriented x3 Extrem General: Yes normal to inspection Psych Appearance: grossly normal and well kempt Mental Status: mental status grossly normal Speech and movement: Clear speech present Affect: normal affect Attitude: cooperative Thought process: Normal thought process present Thought content: Normal thought content present Insight: Fair insight present (Psych) Judgement: Fair judgement present (Psych) Office Procedures Post Void Residual Post Residual Void Post Void Residual (PVR): 24 [id number] Void Residual by ultrasound Results AMB Urinalysis, Automated UA Leukoctes 0 Jacoby/uL Last Edit by PITER Lagunas on 04/04/25 13:44 UA Nitrite Negative Last Edit by PITER Lagunas on 04/04/25 13:44 UA Urobilinogen 0.2 mg/dL Last Edit by PITER Lagunas on 04/04/25 13:44 UA Protein 0 mg/dL Last Edit by PITER Lagunas on 04/04/25 13:44 UA pH 6.0 Last Edit by PITER Lagunas on 04/04/25 13:44 UA Blood 0 Clinton/uL Last Edit by PITER Lagunas on 04/04/25 13:44 UA Specific Kempner 1.020 Last Edit by PITER Lagunas on 04/04/25 13:44 UA Ketone Negative Last Edit by PITER Lagunas on 04/04/25 13:44 UA Bilirubin 0 mg/dL Last Edit by PITER Lagunas on 04/04/25 13:44 UA Glucose 0 mg/dL Last Edit by PITER Lagunas on 04/04/25 13:44 Results Reviewed Results Reviewed: Laboratory Last Values Urine pH (Auto) 6.0 04/04/25 13:38 Specific Kempner (Auto) 1.020 04/04/25 13:38 Urine Protein (Auto) 0 mg/dL 04/04/25 13:38 Glucose (UA)(Auto) 0 mg/dL 04/04/25 13:38 Urine Ketones (Auto) Negative 04/04/25 13:38 Urine Blood (Auto) 0 Clinton/uL 04/04/25 13:38 Urine Nitrite (Auto) Negative 04/04/25 13:38 Urine Bilirubin (Auto) 0 mg/dL 04/04/25 13:38 Urine Urobilinogen (Auto) 0.2 mg/dL 04/04/25 13:38 Leukocyte Esterase (Auto) 0 Jacoby/uL 04/04/25 13:38 Assessment & Plan Assessment & Plan (1) Sensation of pressure in bladder area: Code(s): R39.89 - Other symptoms and signs involving the genitourinary system Category: Medical Plan In office urinalysis results reviewed with the patient today; as noted above. PVR 24 mL Recent PSA results reviewed with the patient today; as noted above. Patient currently denies any bothersome urinary issues or concerns. He reports be happy with current voiding parameters. Will continue with surveillance monitoring. Will obtain PSA in 1 year. Follow-up in 1 year with PSA and PVR; or sooner with any issues, concerns, and or questions. Orders: Orders Prostate Specific Antigen 04/02/25 Z12.5 - Encounter for screening for malignant neoplasm of prostate AMB Urinalysis Automated Today Z13.9 - Encounter for screening, unspecified Prostate Specific Antigen 1 Year N40.0 - Benign prostatic hyperplasia without lower urinary tract symptoms Patient Instructions: The patient had an opportunity to ask questions regarding the treatment plan. All questions were answered. Physical exam, labs, and imaging were discussed and reviewed in detail. As well as risks, benefits, and discussion of treatment choices. No major barriers to understanding were identified. The patient expressed understanding and agreement with the above treatment plan. The patient was made aware they should contact our office by phone for worsening of their current condition, the appearance of new symptoms, or with any questions or concerns. Compliance is encouraged with any medications and follow up testing that is ordered. It is a privilege to be allowed the opportunity to participate in? your urological care.? Again, if you have any questions or concerns If you have any questions or concerns please do not hesitate to contact me. The office is [phone]. This note is constructed using voice recognition software. While every effort has been made to ensure accuracy first helper errors may have been included. Yours sincerely, JORGE L Rincon Coding Level of Care Code Est Pt Level 3 (21235) Diagnoses Sensation of pressure in bladder area R39.89 CPT Codes Post Residual Void - PVR CPT Code: 47921-Owfp Void Residual by ultrasound ([id number])
--- OUTSIDE RECORDS SUMMARY | 2025-04-04 16:30 | XMS_ITS | Clinical Summary ---
Author Organization [facility] Address [address] [facility] 7t [place] [address] Care Team Providers Care Therapeutic Strategy Lead Name Role Phone Starla Martinez [facility] Primary Care Provider [phone] Allergies No known active allergies Medications levothyroxine [...] and replace cap. 16 g 2 4 Active triamcinolone (Kenalog) 0.025 % creamIndications :Dry [...] daily. TSH is at goal. [place] [facility] [place] Seasonal allergic rhinitis 09/06/2016 Overweight (BMI 25.0-29.9) 09/06/2016 Encounters Date Type Department Care Team Description 04/02/2025 Orders Only GENERIC EXTERNAL DATA DEPARTMENT Provider, Generic External Data 03/28/2025 Telephone [facility] [address] [place], [place] [phone] [place], [place], [facility] DEc recall 03/15/2025 Orders Only [facility] External Provider, [facility] from Last [...] series) 08/24/2024 07/27/2024 COVID-19 Vaccine (3 - 2024- season) 2025 09/18/2020, 08/27/2020 Influenza Vaccine (#1) [...] Procedure Name Priority Date/Time Associated Diagnosis Comments PSA, TOTAL Routine 04/02/2025 11:08 AM EST US HEAD NECK SOFT TISSUE Routine 03/15/2025 3:45 PM EDT LIPID PANEL, STANDARD Routine 08/10/2024 11:43 AM EDT Healthcare maintenance ZZZ HISTORICAL HEPATITIS C AB W/REFL TO HCV RNA, QN, PCR Routine 08/11/2021 3:10 PM EDT HIV 1/2 ANTIGEN/ANTIBODY, FOURTH GENERATION W/RFL Routine 08/11/2021 3:10 PM EDT from Last 3 Months or Most Recently Relevant to Health Maintenance Results * PSA,Total (04/02/2025 11:08 AM EST) Prostate Specific Antigen 0.44 <0.05 - 4.0 ng/mL [facility] Comment:PSA methodology: Abb hellen Wyatt i ChemiluminescentMicroparticle Immunoassay (CMIA) 04/02/2025 11:0 8 AM EST 04/02/2025 11:08 AM EST us Generic External Data Provider LAB BLOOD ORDERAB LES Final Result Performing Organization Address City/State/[facility] Co de Phone Number [facility] [address] [place] [phone] * US Head Neck Soft Tissue (03/15/2025 3:45 PM EDT) Anatomical Region Laterality Modality Head, Neck Ultrasound 03/15/2025 3:45 PM EDT Narrative 03/15/2025 5:07 PM EDT [address] [address] Ultrasound Report Signed Patient: Alexandr Jack MR#: [id number] : 1980 Acct:[id number] Age/Sex: 44 / M ADM Date: 03/15/25 Loc: HO.US Attending Dr: Ivelisse Prescott MD Ordering Physician: Ivelisse Prescott MD Date of Service: 03/15/25 Procedure(s): US soft tiss head and/or neck Accession Number(s): [id number] cc: Ivelisse Prescott MD; [facility] Reason for Exam: E89.0 - Postprocedural hypothyroidism [...] 03/15/25 1705 DD/ 1545 TD/TT: 03/15/25 1600 Mangle Tender: [email or web address] Procedure Note Donotuseinterpreter, Image - 03/15/[address] [address] Ultrasound Report Signed Patient: Xochilt Jack#: [id number] : 1980Acct:[id number] Age/Sex: 44 / MADM Date: 03/15/25 Loc: HO.US Attending Dr: Ivelisse Prescott MD Ordering Physician: Ivelisse Prescott MD Date of Service: 03/15/25 Procedure(s): US soft tiss head and/or neck Accession Number(s): [id number] cc: Ivelisse Prescott MD; [facility] Reason for Exam: E89.0 - Postprocedural hypothyroidism [...] 03/15/25 1705 DD/ 1545 TD/TT: 03/15/25 1600 Mangle Tender: YAMILEX [facility] External Provider IMG US PROCEDURES Final Result * (ABNORMAL) Lipid Panel, Standard (08/10/2024 11:43 AM EDT) Triglycerides 214(H) <150 mg/dL [facility] Comment:Desirable Triglyceri de: less than 150 mg/dLBorderline High Triglyceride 150-199 mg/dLHigh Triglyceride: 200-499 mg/dLVery High Triglyceride: greater than or equal to 5OO mg/dL Cholesterol 215(H) <200 mg/dL [facility] Comment:Desirable Cholestero l: less than 200 mg/dLBorderline High Cholesterol: 200-239 mg/dLHigh Cholesterol: greater than 239 mg/dL LDL Cholesterol Calculated 135(H) <100 mg/dL [facility] Comment:Desirable LDL: less than 100 mg/dLNear Optimal/Above Optimal LDL: 110- 129 mg/dLBorderline High LDL: 130-159 mg/dLHigh LDL: 160-189 mg/dLVery High LDL: greater than or equal to 190 mg/dL HDL Cholesterol 38(L) >40 mg/dL [facility] Comment:Desirable HDL: great er than 40 mg/dL Note: This HDL assay may give artificially low results in patients with liver disease. Blood Venous blood specimen / Unknown 08/10/2024 11:43 AM EDT 08/10/2024 1:32 PM EDT [facility] LIFE INSURANCE AGENT LAB BLOOD ORDERABLES Final Re sult [facility] [address] [place] [phone] * HEPATITIS C AB W/REFL TO HCV RNA, QN, PCR (08/11/2021 3:10 PM EDT) HEPATITIS C ANTIBODY NON-REACT SREEKANTH NON-REACT SREEKANTH [facility] INDEX 0.01 <1.00 [facility] Comment: HCV antibody was non-reactive. There is no laboratory evidence of HCV infection. In most cases, no further action is required. However, if recent HCV exposure is suspected, a test for HCV RNA (test code 76389) is suggested. For additional information please refer to http://[employer]/faq/WTK45s4 (This link is being provided for informational/ educational purposes only.) 08/11/2021 3:10 PM EDT us Tamiko Cox NP HISTORICAL/NON ORDERABLE LABS F inal Result [facility] [address] * HIV 1/2 ANTIGEN/ANTIBODY,FOURTH GENERATION W/RFL (08/11/2021 3:10 PM EDT) HIV-1/2 ANTIGEN AND ANTIBODIES, 4TH GENERATION W/ REFLEX NON-REACT SREEKANTH NON-REACT SREEKANTH [facility] Comment: HIV-1 antigen and [...] purpose. For additional information please refer to http://[employer]/faq/IHK091 (This link is being provided for informational/ educational purposes only.) The performance of this assay has not been clinically validated in patients less than 2 years old. 08/11/2021 3:10 PM EDT us Tamiko Cox [employer] ASSEMBLER LAB BLOOD ORDERABLES Final Resu lt [facility] [address] from Last 3 Months or Most Recently Relevant to Health Maintenance Insurance [facility] Care Teams Therapeutic Strategy Lead Relationship Specialty Start Date End Date Starla Martinez FNP [address] [place] [address] PCP - General Family Medicine 01/21/22
--- OUTSIDE RECORDS SUMMARY | 2025-04-04 16:30 | XMS_ITS | Encounter Summary ---
Author Organization [employer] Address [address] [facility] 7 [place] [address] Care Team Providers Care Film Producer Name Role Phone Starla Martinez [facility] Primary Care Provider [phone] Reason for Visit * Reason Onset Date Comments Nurse Triage 06/08/2023 Encounter Details Date Type Department Care Team ([facility] st Contact Info) Description 06/08/[address] [facility]INE [address] [place], [place] [phone] [facility] [address] [place], [place] [phone] Nurse Triage Social History Tobacco Use Types [...] No answer LVM to return call to [facility] triage line [phone]. Also left details with [facility] operating hours. * Telephone Encounter - Esther Horvath - 06/08/2023 8:45 AM EST Symptom: Abdominal Pain - Male Outcome: Schedule an urgent appointment (within 4 hours) or talk to a nurse or provider soon Reason: Getting worse The caller accepted this outcome Please contact pt at [phone] documented in this encounter Plan of Treatment Not on file documented as of this encounter Visit Diagnoses Not on filedocumented in this encounter Care Teams Film Producer Relationship Specialty Start Date End Date Starla Martinez FNP [address] [place] [phone] PCP - General Family Medicine 01/21/22 documented as of this encounter
--- OUTSIDE RECORDS SUMMARY | 2025-04-04 16:30 | XMS_ITS | Encounter Summary ---
Author Organization [employer] Address [address] [facility] [address]t [place] [address] Care Team Providers Care Chief Engineer Production Name Role Phone Starla Martinez ICU RN Primary Care Provider [phone] Encounter Details Date Type Department Care Team (Late st Contact Info) Description 04/02/2025 Orders Only GENERIC EXTERNAL DATA DEPARTMENT Provider, Generic External Data Social History Tobacco Use Types Packs/Day Years [...] PSA, TOTAL Routine 04/02/2025 11:08 AM EST documented in this encounter Results * PSA,Total (04/02/2025 11:08 AM EST) Prostate Specific Antigen 0.44 <0.05 - 4.0 ng/mL [facility] Comment:PSA methodology: Gil Wyatt i ChemiluminescentMicroparticle Immunoassay (CMIA) 04/02/2025 11:0 8 AM EST 04/02/2025 11:08 AM EST us Generic External Data Provider LAB BLOOD ORDERAB LES Final Result [facility] [address] [place] [phone] documented in this encounter Visit Diagnoses Not on filedocumented in this encounter Additional Health Concerns Assessment Noted Time PHQ-9 Depression Total Score: 0 05/07/20 24 2:26 PM EST documented as of this encounter Care Teams Chief Engineer Production Relationship Specialty Start Date End Date Starla Martinez FNP [address] [place] [phone] PCP - General Family Medicine 01/21/22 documented as of this encounter
--- OUTSIDE RECORDS SUMMARY | 2025-04-04 16:30 | XMS_ITS | Encounter Summary ---
Author Organization [employer] Address [address] [facility] 7 h Floor [place] [phone] Care Team Providers Care Improvement Coordinator Name Role Phone Starla Martinez [employer] Primary Care Provider [phone] Encounter Details Date Type Department Care Team (Latest Contact Info) Description 08/22/2018 Abstract [facility] CONVERSIONS Dental, Provider, DDS Social History [...] on filedocumented in this encounter Care Teams Improvement Coordinator Relationship Specialty Start Date End Date Starla Martinez FNP [address] [place] [phone] PCP - General Family Medicine 01/21/22 documented as of this encounter
--- OUTSIDE RECORDS SUMMARY | 2025-04-04 16:30 | XMS_ITS | Encounter Summary ---
Author Organization [employer] Address [address] [facility] 7 [place] [address] Care Team Providers Care Director Of Casino Name Role Phone Starla Martinez [facility] Primary Care Provider [phone] Reason for Visit * Reason Onset Date Comments Nurse Triage 03/19/2024 Encounter Details Date Type Department Care Team ([facility] st Contact Info) Description 03/19/2024 Telephone [facility] [address] [place], [place] [phone] Starla Martinez [facility] [address] [place], [place] [phone] Nurse Triage Social History Tobacco Use Types [...] up. Pt is offered to come to [facility] today but, declined. ASK apt with PCP [...] documented as of this encounter Care Teams Director Of Casino Relationship Specialty Start Date End Date Starla Martinez FNP [address] [place] [phone] PCP - General Family Medicine 01/21/22 documented as of this encounter
== END 2025-04-04 14:16 | disposition home or self-care (01) ==
LOC: HO.HUSH 13:34
PROVIDERS: PCP Registered Nurse; Visit Provider Nurse Practitioner Family
DX: Z13.9 Encounter for screening, unspecified (principal); R39.89 Other symptoms and signs involving the genitourinary system
CPT/HCPCS: 99213

== ENCOUNTER → 2025-04-04 13:33 | Outpatient (BNVA) | payer OTHER, SELFPAY | PROVIDERS: PCP Registered Nurse; Visit Provider Nurse Practitioner Family | DX: N40.0 Benign prostatic hyperplasia without lower urinary tract symptoms (principal); R39.89 Other symptoms and signs involving the genitourinary system | CPT/HCPCS: 51798; 81003; 99212 ==